=== PATIENT | male | born 1980 | race Caucasian/White ===

== ENCOUNTER 2020-08-16 13:54 | Emergency (ER) | payer OTHER, SELFPAY ==
[2020-08-16 14:23] VITALS: BP 132/92; PULSE 78; RESP 16; TEMP 37.1; O2SAT 97; BMI 23.6
--- NOTE | 2020-08-16 16:03 | ED_ITS ---
HPI - Eye Problem General Chief complaint: Eye Problems Stated complaint: eye issue Time Seen by Provider: 08/16/20 15:42 Source: patient Mode of arrival: ambulatory Limitations: no limitations History of Present Illness HPI Narrative: 40 y/o male presenting with painful and swollen cyst on the bottom eye lid of his left eye for the last 5 days. He states it has been fluctuating in size but today was bigger and more painful so he came to the ER. He denies any foreign body or trauma. He does not wear contacts or glasses. He states it is making it hard to see out of the left eye because it is making his eye water. He noticed a small white pustule on the inside of his eyelid today. He feels like he cannot go to work and perform his work with his eye bothering him like this. chief complaint: eye pain Onset (ago): hour(s) (5) Onset description: gradual Duration: constant Location: left eye Eye Symptoms: pain Place: home Mechanism: none Severity: moderate If Pain, Quality: aching Associated symptoms: none Treatments Prior to Arrival: none Related Data Patient tetanus UTD: Yes Previous Rx's Medication Instructions Recorded erythromycin 0.5 inch OPHTHALMIC (EYE) BID #1 g 08/16/20 Allergies Allergy/AdvReac Type Severity Reaction Status Date / Time No Known Allergies Allergy Verified 08/16/20 14:26 [No Known Allergies*] Review of Systems Review of Systems: Constitutional: No Fever, No Chills ENT/Mouth: No sore throat, No Rhinorrhea Eyes: + Eye Pain, + Swelling, No Redness Cardiovascular: No Chest Pain, No SOB Respiratory: No Cough, No Sputum Gastrointestinal: No Nausea, No Vomiting Skin: No Skin Lesions, No rash Neuro: No Dizziness, No Headache Heme/Lymph: No Bruising, No Lymphadenopathy PMFSH Past Medical History Attestation statement: The following information was validated with the patient. Medical History (Updated 08/16/20 @ 16:04 by AARON Lazar) No known health problems Social History Social History Advance Directives: No Advance Directives Information Provided: Yes Physical Exam Vital Signs: Vital Signs: Last Vital Signs Temp 98.8 F 08/16/20 14:23 Pulse 78 08/16/20 14:23 Resp 16 08/16/20 14:23 BP 132/92 H 08/16/20 14:23 Pulse Ox 97 08/16/20 14:23 Body Mass Index 23.6 Const: General: cooperative, healthy appearing and comfortable Orientation/consciousness: patient oriented x3 HENMT: Head: Yes normal to inspection, Yes normocephalic and Yes atraumatic Ears: hearing grossly normal bilaterally General nose exam: Normal external nose present Face and sinus: Yes normal facial exam Mouth: Normal oral and palatal mucosa present and lip normal Teeth and gingiva: dentition normal Throat: Yes posterior oropharynx normal Eyes: Eyelids: Yes eyelid abnormality (lower lid on left eye with large internal pustule with tender area ) Sclerae: sclerae normal Corneas: corneas normal Pupils: Equal, round and reactive pupils present EOM: EOMs intact bilaterally Eyes/upper lids images: 1. large internal horedolum Neck: Neck: Yes normal visual inspection and Yes no lymphadenopathy Chest: Chest palpation & inspection: normal inspection of the chest Resp: Effort & Inspection: normal respiratory effort and able to speak in complete sentences Skin: General skin exam: no rashes or lesions noted Neuro: General: patient oriented x3 and gait normal Cranial nerves: Yes Equal, round and reactive pupils present Extrem: General: Yes normal to inspection Psych: Appearance: grossly normal and well kempt Mental Status: mental status grossly normal Course Course Course Narrative: 40 y/o male presenting with 5 days of left lower eyelid pain and swelling. Exam is consistent with internal hordeolum. Tolerated I&D with si gnificant improvement in discomfort and swelling. Will prescribe abx ointment. Discussed symptomatic management with warm compresses and warning signs to prompt re-evaluation. Stable for discharge home. Procedures Abscess I/D Site: face (left lower eye lid) Side (if applicable): left Technique: other (18 G needle de-ena) Sent for culture/gram staining?: No Irrigation: Yes Packing used?: none Critical Care Time Critical Care Time Critical Care Time: No Discharge Plan Discharge Clinical Impression: Hordeolum Qualifiers: Hordeolum type: internum Laterality: left Eyelid: lower Qualified Code(s): H00.025 - Hordeolum internum left lower eyelid Patient Disposition: Home, Self-Care Instructions: Josue (ED) Additional Instructions: Use warm compresses to your left eye several times per day. Use the prescribed antibiotic eye ointment two times per day until resolved. If you have worsening symptoms come back to the ER for further evaluation. Prescriptions: New erythromycin 5 mg/gram (0.5 %) ointment 0.5 inch ophthalmic (eye) BID Qty: 1 RF: 0 Stand Alone Forms: Work/School Release Interventions: ED Discharge Assessment Last Done: 08/16/20 16:10 Discharge Date/Time: 08/16/20 16:11
== END 2020-08-16 16:11 | disposition home or self-care (01) ==
PROVIDERS: Emergency Provider Emergency Medicine
DX: H00.025 Hordeolum internum left lower eyelid (principal); H57.12 Ocular pain, left eye
CPT/HCPCS: 67700; 99283; 99284

== ENCOUNTER 2021-08-15 16:42 | Emergency (ER) | payer OTHER, SELFPAY ==
--- NOTE | ~2021-08-15 | XR_ITS ---
EXAMINATION: XR HAND, RIGHT CLINICAL INFORMATION: Crush injury. COMPARISON: Radiograph of the right wrist dated from 07/26/2017. TECHNIQUE: PA, lateral, and oblique views of the right hand. FINDINGS: There is a predominantly horizontally oriented fracture in the proximal to mid third of the fourth metacarpal bone. There is no significant displacement or angulation. No other fractures. Posttraumatic soft tissue swelling is noted without radiopaque foreign bodies. XR/XR hand RT min 3V IMPRESSION: Fourth metacarpal fracture.
[2021-08-15 16:53] VITALS: BP 114/71; PULSE 72; RESP 16; TEMP 36.3; O2SAT 97; BMI 21.4
--- NOTE | 2021-08-15 17:39 | ED.EXTPRO ---
HPI - Extremity Problem General Chief complaint: Extremity Injury, Upper Stated complaint: Hand injury Time Seen by Provider: 08/15/21 17:39 Source: patient Mode of arrival: ambulatory History of Present Illness HPI Narrative: 41-year-old male with no significant past medical history presenting to the ED complaining of right hand pain and swelling s/p small heavy safe falling off a shelf about 7ft onto hand last night. States pulled an article of clothing from dresser which was under safe which caused it to fall. Denies head injury or LOC. Reports associated paresthesias to 5th digit. Denies injury to other area, fever MD Complaint: extremity pain and extremity swelling Onset (ago): hour(s) Pain Consistency: constant Related Data Previous Rx's Medication Instructions Recorded erythromycin 5 mg/gram (0.5 %) eye 0.5 inch OPHTHALMIC (EYE) BID #1 g 08/16/20 ointment Allergies Allergy/AdvReac Type Severity Reaction Status Date / Time No Known Allergies Allergy Verified 08/16/20 14:26 [No Known Allergies*] Review of Systems Review of Systems: Constitutional: No Fever, No Chills ENT/Mouth: No Ear Pain, No Sinus Pain, No sore throat,No Swallowing Difficulty Cardiovascular: No Chest Pain, No SOB Respiratory: No Cough, No Sputum, No Wheezing Gastrointestinal: No Nausea, No Vomiting, No Diarrhea, No Constipation, No Abdominal pain Genitourinary:, No Dysuria, No Urgency, No Flank Pain Musculoskeletal: + joint pain, No Myalgias, + Joint Swelling Skin: No Skin Lesions, No rash Neuro: No Weakness, No Numbness, + Paresthesias Yes all other systems are reviewed and are negative [facility] Past Medical History Attestation statement: The following information was validated with the patient. Medical History No known health problems Social History Social History Advance Directives: No Advance Directives Information Provided: No Physical Exam Vital Signs: Vital Signs: Last Vital Signs Temp 97.3 F 08/15/21 16:53 Pulse 72 08/15/21 16:53 Resp 16 08/15/21 16:53 BP 114/71 08/15/21 16:53 Pulse Ox 97 08/15/21 16:53 BMI result Body Mass Index 21.4 Const: General: cooperative, healthy appearing, no acute distress, alert, awake and Physically active Orientation/consciousness: patient oriented x3 Limitations: no limitations HEENT: Head: Yes normal to inspection and Yes atraumatic Ears: hearing grossly normal bilaterally General nose exam: Normal external nose present Face and sinus: Yes normal facial exam Eyes: General: appearance normal, both eyes and all related structures EOM: EOMs intact bilaterally Neck: Neck: Yes normal visual inspection and Yes no meningeal signs Resp: Effort & Inspection: normal respiratory effort and no respiratory distress Cardio: Rate: regular rate Peripheral pulses: radial pulses present Skin: Rashes: no rashes Wounds: no wounds Neuro: General: patient oriented x3, tone normal and no meningeal signs Gait exam (Neuro): Normal gait present Extrem: Other: Right hand with noted swelling > 4th & 5th digits with diffuse tenderness volar aspect. Decreased ROM in to 4th and 5th digits from pain and swelling. Decreased thumb to pinky opposition secondary to pain. Sensation intact to light touch. Neurovascularly intact. No erythema or evidence of cellulitis Course Course Course Narrative: XR hand RT min 3V IMPRESSION: Fourth metacarpal fracture. >> patient placed in ulnar gutter splint, is to follow-up with orthopedics. Worrisome signs and symptoms and strict return precautions discussed MDM - Extremity (Nontraumatic) MDM Narrative Medical decision making narrative: 41-year-old male with no significant past medical history presenting to the ED complaining of right hand pain and swelling s/p small heavy safe falling off a shelf about 7ft onto hand last night. On exam vital signs stable, NAD/nontoxic, physical exam as above. Concern for fracture Plan: X-ray Medical Records Attestation: I reviewed the patient's medical records. Lab Data Attestation: I reviewed the patient's lab results. Procedures Orthopedic Splinting/Casting Injury #1: Side: right Upper Extremity Injury Location: finger Upper Extremity Immobilizer: ulnar gutter Discharge Plan Discharge Clinical Impression: Fracture of fourth metacarpal bone Qualifiers: Encounter type: initial encounter Fracture type: closed Fracture alignment: nondisplaced Laterality: right Patient Disposition: Home, Self-Care Instructions: Finger Fracture (ED) Additional Instructions: You have a fracture of your ring finger. Wear splint at all times, keep dry and clean. Ice and elevate. You need to follow-up with the contact center specialist. Take Tylenol & Motrin for pain and swelling. Call the specialist on Tuesday to make an appointment for 1 week If pain becomes unbearable, fingers become numb please remove Aj wrap and return to the ED Prescriptions: No Action erythromycin 5 mg/gram (0.5 %) ointment 0.5 inch ophthalmic (eye) BID Qty: 1 0RF Referrals: Ale Perkins MD [Physician] - 1 week Stand Alone Forms: Work/School Release
--- NOTE | 2021-08-15 18:37 | PC.NURSE ---
PT ULNER GUTTER PLACED TO RIGHT HAND +CMS CHECKED BY AARON ZAVALA.
== END 2021-08-15 18:40 | disposition home or self-care (01) ==
PROVIDERS: Emergency Provider Emergency Medicine Emergency Medical Services
DX: S62.304A Unspecified fracture of fourth metacarpal bone, right hand, initial encounter for closed fracture (principal); M79.641 Pain in right hand; Y29.XXXA Contact with blunt object, undetermined intent, initial encounter; Y93.9 Activity, unspecified; Y92.009 Unspecified place in unspecified non-institutional (private) residence as the place of occurrence of the external cause; Y99.9 Unspecified external cause status
CPT/HCPCS: 29130; 73130; 99283

== ENCOUNTER 2021-09-01 08:50 | Outpatient (REF) | payer OTHER, SELFPAY ==
--- NOTE | ~2021-09-01 | XR_ITS ---
EXAMINATION: XR HAND, RIGHT CLINICAL INFORMATION: Pain right hand. COMPARISON: Right hand 08/15/2021. TECHNIQUE: PA, lateral, and oblique views of the right hand. FINDINGS: There is a transverse oblique fracture mid 4th metatarsal with mild volar angulation. No additional fractures seen. There is no dislocation. The soft tissues are normal. XR/XR hand RT min 3V IMPRESSION: Oblique transverse fracture mid 4th metatarsal with volar angulation. Findings unchanged to previous study.
== END 2021-09-01 08:51 | disposition home or self-care (01) ==
LOC: HO.HOSX 08:50
PROVIDERS: Visit Provider Orthopaedic Surgery
DX: S62.324A Displaced fracture of shaft of fourth metacarpal bone, right hand, initial encounter for closed fracture (principal)
CPT/HCPCS: 73130; 99202

== ENCOUNTER → 2021-09-03 08:06 | Day surgery (SDC) | payer OTHER, SELFPAY ==
--- NOTE | 2021-09-02 11:56 | P.CONAN_ITS ---
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
[2021-09-03 08:13] VITALS: BMI 20.7
--- NOTE | 2021-09-03 08:18 | PC.NURSE ---
patient states he did cocaine yesterday. md ascencio by the bedside speaking to patient and md medina. patient aware of plan of care.
== END ==
PROVIDERS: Visit Provider Orthopaedic Surgery
DX: S62.304A Unspecified fracture of fourth metacarpal bone, right hand, initial encounter for closed fracture (principal); Z53.09 Procedure and treatment not carried out because of other contraindication

== ENCOUNTER → 2021-09-04 08:45 | Outpatient (BNVA) | payer OTHER, SELFPAY | PROVIDERS: Visit Provider Physician Assistant | DX: S62.324D Displaced fracture of shaft of fourth metacarpal bone, right hand, subsequent encounter for fracture with routine healing (principal) | CPT/HCPCS: 29085; 99212 ==

== ENCOUNTER 2021-09-16 09:33 | Outpatient (REF) | payer OTHER, SELFPAY ==
--- NOTE | ~2021-09-16 | XR_ITS ---
EXAMINATION: XR HAND, RIGHT CLINICAL INFORMATION: Pain in right hand. COMPARISON: None TECHNIQUE: PA, lateral, and oblique views of the right hand. FINDINGS: The transverse fracture of the diaphysis of the 4th metacarpal redemonstrated with increased callus formation. There is persistent apex dorsal angulation of the fracture, question increased slightly. Evaluation is obscured by adjacent bones on the lateral view. No additional abnormalities. XR/XR hand RT min 3V IMPRESSION: Healing 4th metacarpal fracture. Question slight increase in apex dorsal angulation. This could be artifactual related to slight differences in projection.
== END 2021-09-16 09:34 | disposition home or self-care (01) ==
LOC: HO.HOSX 09:33
PROVIDERS: Visit Provider Orthopaedic Surgery
DX: S62.324D Displaced fracture of shaft of fourth metacarpal bone, right hand, subsequent encounter for fracture with routine healing (principal)
CPT/HCPCS: 73130; 99212

== ENCOUNTER 2021-10-07 07:52 | Outpatient (REF) | payer OTHER, SELFPAY ==
--- NOTE | ~2021-10-07 | XR_ITS ---
EXAMINATION: XR HAND, RIGHT CLINICAL INFORMATION: Pain right hand. COMPARISON: Right hand 09/16/2021. TECHNIQUE: PA, lateral, and oblique views of the right hand. FINDINGS: There is no acute fracture, dislocation or subluxation seen involving the fourth digit. There is a healing fracture with volar angulation mid 4th metacarpal unchanged to 09/16/2021. No soft tissue abnormality seen. XR/XR hand RT min 3V IMPRESSION: Healing 4th mid metacarpal fracture with callus formation and volar angulation unchanged to previous study 09/16/2021. No other bony abnormality seen.
== END 2021-10-07 07:53 | disposition home or self-care (01) ==
LOC: HO.HOSX 07:52
PROVIDERS: Visit Provider Physician Assistant
DX: M79.641 Pain in right hand (principal)
CPT/HCPCS: 73130

== ENCOUNTER 2021-10-30 09:26 | Outpatient (REF) | payer OTHER, SELFPAY | END 2021-10-30 09:27 | disposition home or self-care (01) | LOC: HO.HOSX 09:26 | PROVIDERS: Visit Provider Orthopaedic Surgery | DX: Z13.89 Encounter for screening for other disorder (principal) ==

== ENCOUNTER 2021-12-10 01:12 | Emergency (ER) | payer OTHER, SELFPAY ==
--- NOTE | ~2021-12-10 | XR_ITS ---
Indication: Rule out foreign body EXAMINATION: Two-view chest, cervical spine 3 views and 2 view skull image. 2 views the chest are obtained and there are no films to compare. The cardiac silhouette is within normal limits. There is no evidence for an infiltrate. There is no effusion. Lung godoy are grossly clear. The hilar structures do not appear pathologically enlarged. There is no radiopaque foreign body seen. 3 views of the cervical spine demonstrate normal cervical lordosis. No listhesis or compression injury. No radiopaque foreign body is seen. 2 views of the skull AP and lateral do not demonstrate evidence for radiopaque foreign body. XR/XR chest 2V IMPRESSION: Multiple films. No acute finding. No radiopaque foreign body is seen.
--- NOTE | ~2021-12-10 | XR_ITS ---
Indication: Rule out foreign body EXAMINATION: Two-view chest, cervical spine 3 views and 2 view skull image. 2 views the chest are obtained and there are no films to compare. The cardiac silhouette is within normal limits. There is no evidence for an infiltrate. There is no effusion. Lung godoy are grossly clear. The hilar structures do not appear pathologically enlarged. There is no radiopaque foreign body seen. 3 views of the cervical spine demonstrate normal cervical lordosis. No listhesis or compression injury. No radiopaque foreign body is seen. 2 views of the skull AP and lateral do not demonstrate evidence for radiopaque foreign body. XR/XR skull <4V IMPRESSION: Multiple films. No acute finding. No radiopaque foreign body is seen.
--- NOTE | ~2021-12-10 | XR_ITS ---
Indication: Rule out foreign body EXAMINATION: Two-view chest, cervical spine 3 views and 2 view skull image. 2 views the chest are obtained and there are no films to compare. The cardiac silhouette is within normal limits. There is no evidence for an infiltrate. There is no effusion. Lung godoy are grossly clear. The hilar structures do not appear pathologically enlarged. There is no radiopaque foreign body seen. 3 views of the cervical spine demonstrate normal cervical lordosis. No listhesis or compression injury. No radiopaque foreign body is seen. 2 views of the skull AP and lateral do not demonstrate evidence for radiopaque foreign body. XR/XR cervical spine 2V IMPRESSION: Multiple films. No acute finding. No radiopaque foreign body is seen.
[2021-12-10 01:32] VITALS: BP 120/75; PULSE 71; RESP 17; TEMP 36.9; O2SAT 98; BMI 22.6
[2021-12-10 06:00] VITALS: BP 104/69; PULSE 56; RESP 17; O2SAT 100
--- NOTE | 2021-12-10 07:10 | ED.BACK ---
HPI - Back Pain/Injury General Chief Complaint: Back Pain/Injury Stated Complaint: back pain, Time Seen by Provider: 12/10/21 06:17 Source: patient Mode of arrival: ambulatory History of Present Illness HPI Narrative: This is a 41-year-old female with history IVDA and presents with very specific back pain that started earlier today and has continued to ?get worse?. Patient denies any fevers, chills, groin numbness, difficulty with bowel or bladder and denies any weakness in bilateral lower extremities. Otherwise, patient denies shortness of breath, chest pain/palpitations. Related Data Allergies Allergy/AdvReac Type Severity Reaction Status Date / Time No Known Allergies Allergy Verified 12/10/21 01:34 [No Known Allergies*] Review of Systems Review of Systems: Pertinent positives and negatives as stated in HPI 10 point review of systems is otherwise negative. 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 GENERAL: Cachectic, in no acute distress. HEAD: Normocephalic/atraumatic EYES: PERRLA, EOMI intact without pain, no nystagmus/pallor/icterus noted EARS: Ext canals without abnormality, TMs non-bulging and non-erythematous NOSE: Nares patent bilateral OROPHARYNX: no oral lesions noted, posterior pharynx clear dry mucosa NECK: Supple, no adenopathy LUNGS: Normal breath sounds. No adventitious sounds or accessory muscle use. SpO2<100> CARDIOVASCULAR: Regular rate and rhythm without noted murmurs ABDOMEN: Soft, non-tender, non-distended with bowel sounds. BACK: Specific vertebral pain on palpation at approximately L1-L2 MUSCULOSKELETAL: No tenderness, deformities, or effusions noted on gross inspection. EXTREMITIES: No cyanosis, clubbing or edema. SKIN: Inspection of the skin reveals no rashes NEUROLOGIC: Alert and oriented x 4. Strength and sensation to light touch were grossly intact x 4. Course Course Course Narrative: 41-year-old male with history and clinical presentation concerning for possible spinal abscess/diskitis, less likely felt to be renal colic/fracture/pyelonephritis. Signed out to Dr. Burgos. Discharge Plan Discharge Clinical Impression: Lumbar pain, Intravenous drug abuse Patient Disposition: Still a Patient
[2021-12-10 08:23] LABS: MANUAL DIFF FLAG NO
[2021-12-10 08:24] LABS: Basophils Absolute Auto 0.1 X10*3/uL (0.0-0.2); Basophils Percent Auto 0.9 % (0-2); Eosinophils Absolute Auto 0.2 X10*3/uL (0.0-0.4); Eosinophils Percent Auto 3.2 % (0-4); Hematocrit 45.7 % (42.0-52.0); Hemoglobin 15.2 g/dl (14.0-18.0); Imm Gran Abs Auto 0.02 X10*3/uL (0.00-0.03); Imm Gran Pct Auto 0.3 % (0.0-0.4); Lymphocytes Absolute Auto 2.7 X10*3/uL (1.2-4.9); Lymphocytes Percent Auto 38.7 % (20-40); Mean Corpuscular HGB Conc 33.3 g/dl (31.0-36.0); Mean Corpuscular Hemoglobin 28.6 pg (27.0-33.0); Mean Corpuscular Volume 85.9 fL (80.0-98.0); Mean Platelet Volume 9.1 fL (9.4-12.4); Monocytes Absolute Auto 0.7 X10*3/uL (0.1-1.2); Monocytes Percent Auto 10.3 % (2-11); Neutrophils Absolute Auto 3.2 x10*3/uL (2.0-8.3); Neutrophils Percent Auto 46.6 % (45-73); Platelet Count 347 X10*3/uL (160-400); Red Blood Count 5.32 X10*6/uL (4.60-5.80); Red Cell Distribution Width 12.4 % (11.0-16.0); White Blood Count 6.9 X10*3/uL (4.8-10.8)
[2021-12-10] MEDS: Ketorolac Tromethamine 30 MG/ML VIAL 15 MG IVPUSH (08:25)
[2021-12-10 08:32] LABS: INTERNATIONAL NORM RATIO 0.9 (0.9-1.1); Prothrombin Time 10.6 SEC (10.0-13.1)
[2021-12-10 08:44] LABS: Alanine Aminotransferase 17 U/L (0-40); Albumin Level 4.5 g/dL (3.5-5.0); Alkaline Phosphatase 90 U/L (39-117); Anion Gap 17 (12-20); Aspartate Amino Transferase 27 U/L (5-37); Bilirubin Total 0.4 mg/dL (0.0-1.0); Blood Urea Nitrogen 11 mg/dL (9-16); C Reactive Protein 0.08 mg/dL (< or = 0.50); Calcium 9.6 mg/dL (8.4-10.2); Carbon Dioxide 28 mmol/L (22-29); Chloride 101 mmol/L (96-108); Estimated Glomerular Filt Rate > 60; Glucose Random 85 mg/dL (60-115); Potassium 4.2 mmol/L (3.3-5.1); Sodium 142 mmol/L (135-145); Total Protein 7.5 g/dL (6.5-8.0)
[2021-12-10 09:02] LABS: Erythrocyte Sedimentation Rate 2 MM/HR (0-15)
== END 2021-12-10 10:13 | disposition left against medical advice (07) ==
PROVIDERS: Student in an Organized Health Care Education/Training Program; Emergency Provider Emergency Medicine Emergency Medical Services
DX: M54.50 Low back pain, unspecified (principal); F19.90 Other psychoactive substance use, unspecified, uncomplicated; F17.210 Nicotine dependence, cigarettes, uncomplicated
CPT/HCPCS: 36415; 70250; 71046; 72040; 80053; 83605; 85025; 85610; 85652; 86140; 87040; 96374; 99284; J1885

== ENCOUNTER 2021-12-23 07:21 | Outpatient (REF) | payer OTHER, SELFPAY | END 2021-12-23 07:22 | disposition home or self-care (01) | LOC: HO.HOSX 07:21 | PROVIDERS: Visit Provider Physician Assistant | DX: Z13.89 Encounter for screening for other disorder (principal) ==

== ENCOUNTER 2022-03-21 11:37 | Emergency (ER) | payer OTHER, SELFPAY | END 2022-03-21 16:39 | disposition left against medical advice (07) | PROVIDERS: Emergency Provider Emergency Medicine | DX: M54.50 Low back pain, unspecified (principal) ==

== ENCOUNTER 2022-05-12 20:40 | Emergency (ER) | payer OTHER, SELFPAY ==
--- NOTE | ~2022-05-12 | XR_ITS ---
EXAMINATION: XR CHEST CLINICAL INFORMATION: Chest pain COMPARISON: Chest x-ray 12/10/2021 TECHNIQUE: Frontal portable view of the chest was obtained. 9:42 PM FINDINGS: No significant abnormality is noted involving the heart, lungs, mediastinum, bony thorax or soft tissues. XR/XR chest 1V IMPRESSION: Unremarkable examination.
[2022-05-12 20:47] VITALS: BP 145/97; PULSE 102; RESP 18; TEMP 36.5; O2SAT 98; BMI 23.6
--- NOTE | 2022-05-12 20:50 | ECG_ITS ---
Test Reason : BACK PAIN Blood Pressure : / mmHG Vent. Rate : 087 BPM Atrial Rate : 087 BPM P-R Int : 116 ms QRS Dur : 094 ms QT Int : 400 ms P-R-T Axes : 049 049 049 degrees QTc Int : 481 ms Normal sinus rhythm Prolonged QT Abnormal ECG No previous ECGs available Referred By: Generic ED Physician Electronically Signed By:ASHLEIGH KNIGHT MD
--- NOTE | 2022-05-12 21:31 | ED.GENADULT ---
HPI - General Adult General Chief complaint: Back Pain/Injury Stated complaint: Chest pain Time Seen by Provider: 05/12/22 21:03 Source: patient Mode of arrival: ambulatory Limitations: no limitations History of Present Illness HPI narrative: Patient comes to the emergency room complaining of intermittent chest pain described as a bubble expanding in the chest for the last 2 months. Patient admits to use IV cocaine. Patient is here chills, no rib pain, no trauma. Related Data Allergies Allergy/AdvReac Type Severity Reaction Status Date / Time No Known Allergies Allergy Verified 12/10/21 01:34 [No Known Allergies*] Review of Systems Review of Systems: Constitutional : No Weight loss, No Fever, No Chills, No Night Sweats, No Fatigue, No Malaise ENT/Mouth : No Hearing loss, No Ear Pain, No Nasal Congestion, No Sinus Pain, No Hoarseness, No sore throat, No Rhinorrhea, No Swallowing Difficulty Eyes: No Eye Pain, No Swelling, No Redness, No Foreign Body, No Discharge, No Vision Changes Cardiovascular : Complaining of chest discomfort described as a bubble expanding in the chest, No Chest Pain, No SOB, No Dyspnea on Exertion, No Orthopnea, No Edema, No Palpitations Respiratory : No Cough, No Sputum, No Wheezing, No Smoke Exposure, No Dyspnea Gastrointestinal : No Nausea, No Vomiting, No Diarrhea, No Constipation, No abdominal Pain, No Hematochezia, No Melena Genitourinary : no irregular bleeding, No Dysuria, No Urinary Frequency, No Hematuria, No Urinary Incontinence, No Urgency, No Flank Pain, No Urinary Flow Changes, No Hesitancy Musculoskeletal : No joint pain, No Myalgias, No Joint Swelling Skin : No Skin Lesions, No rash Neuro : No Weakness, No Numbness, No Paresthesias, No Loss of Consciousness, No Dizziness, No Headache Psych : No Anxiety/Panic, No Depression, No SI/HI/AH/VH, No Social Issues, Heme/Lymph: No Bruising, No Bleeding,No Lymphadenopathy Endocrine : No Polyuria, No Polydipsia, No Temperature Intolerance [facility] Past Medical History Medical History (Updated 05/12/22 @ 22:50 by Tracie Petit MD) IV drug user No known health problems Social History Social History Alcohol intake: current Alcohol intake frequency: holidays/special occasions only Alcohol type: hard liquor Patient Tobacco Use Status: Current everyday Tobacco user Tobacco use type: Cigarette Cigarettes Per Day: 6 Smoked in Last 30 Days: No Substance Use Type: Crack/Cocaine and Heroin Substance Use Frequency: Daily Substance Use Frequency Other:: 2-3 times/day Last Used Substance: Hours (ago) Any prior treatment program specific to substance use: Yes (methadone clinic) Advance Directives: No Advance Directives Information Provided: No Current occupational status: employed 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 Oriented X3. No acute distress. Well appearing Eyes: Pupils equal, round and reactive to light. ENT: Pharynx normal. Neck: Normal inspection. Neck supple. No lymph nodes noted. No crepitus CVS: Normal heart rate and rhythm. Pulses normal. Normal S1 and S2 Respiratory: No respiratory distress. Breath sounds normal. No Wheezing. No rales Abdomen: Soft and nontender. No rigidity. No distention. Skin: Skin warm and dry. Normal skin color. Normal skin turgor. Extremities: No lower extremity edema. No Lacerations. No Rash Neuro: Oriented X 3. No motor deficit. No sensory deficit. Moving all extremities. No slurred speech. CN 2 through 12 grossly intact Psych: calm, cooperative, normal affect Course Course Course Narrative: -all of patient's labs and imaging pending. Patient has vital stables -troponin and EKG, chest x-ray within normal limits. Patient's source of chest fullness sensation for the last 2 months unlikely to be from cardiac etiology. Medical Decision Making Differential Diagnosis Differential Diagnoses: The differential diagnosis associated with the presentation includes (ACS, cocaine induced chest pain, pneumonia) Lab Data MDM Lab Attestation statement: I reviewed the patient's lab results. 05/12/22 21:50 05/12/22 21:51 Labs: Lab Results 05/12/22 05/12/22 05/12/22 Range/Units 21:50 21:50 21:51 WBC 4.9 (4.8-10.8) X10*3/uL RBC 4.68 (4.60-5.80) X10*6/uL Hgb 13.6 L (14.0-18.0) g/dl Hct 39.1 L (42.0-52.0) % MCV 83.5 (80.0-98.0) fL MCH 29.1 (27.0-33.0) pg MCHC 34.8 (31.0-36.0) g/dl RDW 12.0 (11.0-16.0) % Plt Count 291 (160-400) X10*3/uL MPV 9.0 L (9.4-12.4) fL Immature Gran % (Auto) 0.0 (0.0-0.4) % Neut % (Auto) 45.5 (45-73) % Lymph % (Auto) 37.1 (20-40) % Treasure % (Auto) 14.3 H (2-11) % Eos % (Auto) 2.5 (0-4) % Baso % (Auto) 0.6 (0-2) % Lymph # (Auto) 1.8 (1.2-4.9) X10*3/uL Treasure # (Auto) 0.7 (0.1-1.2) X10*3/uL Eos # (Auto) 0.1 (0.0-0.4) X10*3/uL Baso # (Auto) 0.0 (0.0-0.2) X10*3/uL Abs Immat Gran (auto) 0.00 (0.00-0.03) X10*3/uL Absolute Neuts (auto) 2.2 (2.0-8.3) x10*3/uL Absolute Nucleated RBC 0.000 (0.0-0.012) X10*3/uL Nucleated RBC % (auto) 0.0 (0.0-0.2) /100WBC Sodium 142 (135-145) mmol/L Potassium 4.0 (3.3-5.1) mmol/L Chloride 106 (96-108) mmol/L Carbon Dioxide 30 H (22-29) mmol/L Anion Gap 10 L (12-20) BUN 19 H (9-16) mg/dL Creatinine 1.07 (0.5-1.4) mg/dL Estim Creat Clear Calc 90.8 Estimated GFR > 60 Random Glucose 120 H (60-115) mg/dL Calcium 9.2 (8.4-10.2) mg/dL Total Bilirubin 0.4 (0.0-1.0) mg/dL AST 31 (5-37) U/L ALT 28 (0-40) U/L Alkaline Phosphatase 82 (39-117) U/L Troponin I High Sens < 3.5 (<3.5-35.0) ng/L Total Protein 6.7 (6.5-8.0) g/dL Albumin 4.1 (3.5-5.0) g/dL Independent Interpretation I performed an independent interpretation of an: EKG (My EKG interpretation: Normal sinus rhythm, heart rate 87, no ST segment depression or elevation, no T-wave inversion, right bundle branch block, QTC 481) and Plain X-Ray (My chest x-ray interpretation: No infiltrates) Radiology Impression Discussion of test interpretation with radiology: I have reviewed the radiologist's reading. Radiologist Impression: FINDINGS: No significant abnormality is noted involving the heart, lungs, mediastinum, bony thorax or soft tissues. XR/XR chest 1V IMPRESSION: Unremarkable examination. Scores Heart Score History: -0- slightly suspicious ECG: -0- normal Age: -0- < or = 45 Risk factory: -0- no risk factors known Troponin: -0- < or = normal limit Score: 0 Risk: 1.7% Discharge Plan Discharge Clinical Impression: Atypical chest pain Patient Disposition: Home, Self-Care Instructions: Chest Pain (ED) Additional Instructions: Please follow-up with your primary care physician tomorrow. If you have any worsening or new symptoms, please return to the emergency room or call 911
[2022-05-12 21:57] LABS: Basophils Percent Auto 0.6 % (0-2); Eosinophils Absolute Auto 0.1 X10*3/uL (0.0-0.4); Eosinophils Percent Auto 2.5 % (0-4); Hematocrit 39.1 % (42.0-52.0); Hemoglobin 13.6 g/dl (14.0-18.0); Lymphocytes Absolute Auto 1.8 X10*3/uL (1.2-4.9); Lymphocytes Percent Auto 37.1 % (20-40); MANUAL DIFF FLAG NO; Mean Corpuscular HGB Conc 34.8 g/dl (31.0-36.0); Mean Corpuscular Hemoglobin 29.1 pg (27.0-33.0); Mean Corpuscular Volume 83.5 fL (80.0-98.0); Monocytes Absolute Auto 0.7 X10*3/uL (0.1-1.2); Monocytes Percent Auto 14.3 % (2-11); Neutrophils Absolute Auto 2.2 x10*3/uL (2.0-8.3); Neutrophils Percent Auto 45.5 % (45-73); Platelet Count 291 X10*3/uL (160-400); Red Blood Count 4.68 X10*6/uL (4.60-5.80); White Blood Count 4.9 X10*3/uL (4.8-10.8)
[2022-05-12 22:13] LABS: Alanine Aminotransferase 28 U/L (0-40); Albumin Level 4.1 g/dL (3.5-5.0); Alkaline Phosphatase 82 U/L (39-117); Anion Gap 10 (12-20); Aspartate Amino Transferase 31 U/L (5-37); Bilirubin Total 0.4 mg/dL (0.0-1.0); Blood Urea Nitrogen 19 mg/dL (9-16); Calcium 9.2 mg/dL (8.4-10.2); Carbon Dioxide 30 mmol/L (22-29); Chloride 106 mmol/L (96-108); Creatinine Clr Calc Pharmacy 90.8; Estimated Glomerular Filt Rate > 60; Glucose Random 120 mg/dL (60-115); Sodium 142 mmol/L (135-145); Total Protein 6.7 g/dL (6.5-8.0)
[2022-05-12 22:20] LABS: Troponin-I High Sensitivity < 3.5 ng/L (<3.5-35.0)
[2022-05-12 22:57] VITALS: BP 105/67; PULSE 60; RESP 18; TEMP 36.8; O2SAT 98
--- NOTE | 2022-05-12 23:00 | PC.NURSE ---
Pt TORRES x4, ambulatory c/o 5/10 lower back pain when discharged. Pt verbalizes understanding of discharge instructions. Rn advises to f/u with PCP and rtn to ED for worsening of sx. Pt agrees to plan.
== END 2022-05-12 23:02 | disposition home or self-care (01) ==
PROVIDERS: Emergency Provider Emergency Medicine
DX: R07.89 Other chest pain (principal); F17.210 Nicotine dependence, cigarettes, uncomplicated; F11.20 Opioid dependence, uncomplicated
CPT/HCPCS: 36415; 71045; 80053; 84484; 85025; 93005; 99283; 99284

== ENCOUNTER 2022-09-20 12:28 | Emergency (ER) | payer OTHER, SELFPAY ==
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
--- NOTE | ~2022-09-20 | CT_ITS ---
Examination: CT brain and CT cervical spine without contrast. Clinical indications: Head strike. COMPARISON: None. TECHNIQUE: 5 mm thin axial and reformatted 2 mm thin sagittal and coronal images of brain were obtained. Subsequently axial 3 mm thin and reformatted 2 mm thin sagittal and coronal images of cervical spine were obtained. DLP [id number]. This CT examination was performed using dose optimization technique as appropriate, variously including the following: Automated exposure control Adjustment of MA and/or KV according to patient size(this includes techniques or standardized protocols for targeted exams where dose is matched to indication/reason for exam; extremities or head. Use of iterative reconstruction techniques. FINDINGS: Brain: There is no acute intra-axial, extra-axial bleed, masses or midline shift. There is no acute infarction evolution. There is no edema. The riley to white matter difference is maintained normal. The lateral ventricles are symmetrical in size and configuration without enlargement. Bone windows reveal no calvarial abnormality. There is no scalp soft tissue abnormality. Bilateral paranasal sinuses and mastoid air cells are well-aerated. Cervical spine: There is normal cervical lordosis. The vertebral heights, alignment and disc heights are normal. There is no visible acute fracture, dislocation or subluxation seen. The craniovertebral junction and the C1-C2 alignment is normal. The prevertebral and paravertebral soft tissues are normal. The airways widely patent. Lung apices are clear. Thyroid lobes are symmetrical and normal. CT/CT cervical spine wo IV con IMPRESSION: 1. No acute intracranial process seen. 2. There is no acute fracture, dislocation or subluxation in cervical spine.
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
[2022-09-20 12:36] VITALS: BP 127/68; PULSE 72; O2SAT 98
[2022-09-20 12:39] VITALS: BP 132/84; PULSE 66; RESP 16; TEMP 37.1; O2SAT 97; BMI 26.7
== END 2022-09-20 14:04 | disposition home or self-care (01) ==
PROVIDERS: Emergency Provider Emergency Medicine
DX: S89.92XA Unspecified injury of left lower leg, initial encounter (principal); M54.50 Low back pain, unspecified; M25.562 Pain in left knee; R51.9 Headache, unspecified; V43.52XA Car driver injured in collision with other type car in traffic accident, initial encounter; Y93.9 Activity, unspecified; Y92.410 Unspecified street and highway as the place of occurrence of the external cause; Y99.9 Unspecified external cause status
CPT/HCPCS: 70450; 72100; 72125; 73560; 99284

== ENCOUNTER 2023-04-22 11:44 | Emergency (ER) | payer MEDICAID, SELFPAY ==
--- NOTE | ~2023-04-22 | XR_ITS ---
EXAMINATION: XR RIBS, RIGHT CLINICAL INFORMATION: Right-sided rib pain COMPARISON: Chest x-ray of May 12, 2022 TECHNIQUE: PA film of chest and 4 views of the right ribs FINDINGS: There is no evidence of acute parenchymal disease, pneumothorax, or pleural effusion. Heart normal size. No evidence of pulmonary edema. No acute displaced right rib fracture seen. No destructive bony lesion identified. XR/XR ribs RT min 3V w CXR1V IMPRESSION: No acute parenchymal disease within the chest. No significant right rib abnormality appreciated on this plain film study.
[2023-04-22 12:44] VITALS: BP 120/82; PULSE 80; RESP 16; TEMP 37.1; O2SAT 95; BMI 31.4
--- NOTE | 2023-04-22 12:44 | ED_ITS ---
HPI - General Adult General Chief complaint: General Medical Stated complaint: Pain Underneath R Arm and Side Time Seen by Provider: 04/22/23 16:04 Source: patient Mode of arrival: ambulatory Limitations: no limitations History of Present Illness HPI narrative: 42-year-old male history of IV drug use presents to ED for right-sided chest wall pain. Radiates to the back that is worse on movement for the past couple of days. Patient also states mild pleurisy. Patient denies any coughing up blood, leg swelling, calf pain, fever or chills. Patient states he has been sober for the past 3 months. Patient denies any abdominal pain, dysuria, hematuria, nausea, flank pain or vomiting. Patient denies any urinary / bowel incontinence. Related Data Previous Rx's Medication Instructions Recorded cyclobenzaprine 5 mg tablet 5 mg PO TID PRN muscle spasm 7 09/20/22 days #21 tabs naproxen 500 mg tablet 500 mg PO BID PRN pain 7 days #14 04/22/23 tabs Allergies Allergy/AdvReac Type Severity Reaction Status Date / Time No Known Allergies Allergy Verified 04/22/23 12:44 [No Known Allergies*] Review of Systems 2 Review of Systems: right sided chest wall pain Yes all other systems are reviewed and are negative PMFSH Past Medical History Medical History IV drug user No known health problems Social History Social History Alcohol intake: current Alcohol intake frequency: a few times a month Alcohol type: hard liquor Patient Tobacco Use Status: Current everyday Tobacco user Tobacco use type: Cigarette Cigarettes Per Day: 6 Substance Use Type: Crack/Cocaine and Heroin Advance Directives: No Advance Directives Information Provided: No Current occupational status: employed 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 Physical Exam ED Vital Signs: Vital Signs - 24 hr 04/22/23 12:44 04/22/23 16:46 04/22/23 18:20 Temperature 98.7 F 98.3 F Pulse Rate 80 80 Respiratory Rate 16 20 18 Blood Pressure 120/82 118/84 Pulse Oximetry 95 97 Oxygen Delivery Method Room Air Room Air BMI result Body Mass Index 31.4 Const Orientation/consciousness: oriented to person, oriented to place, oriented to time and patient oriented x3 HENMT Head: Yes normal to inspection, Yes No palpable skull fracture present, Yes normocephalic and Yes atraumatic Ears: hearing grossly normal bilaterally, external ears normal, TM's normal bilaterally, TM normal on the right, TM normal on the left, EAC's normal, mastoids normal and no periauricular adenopathy Throat: Yes posterior oropharynx normal, Yes tonsils normal and Yes uvula midline Eyes General: appearance normal, both eyes and all related structures Neck Neck: Yes normal visual inspection, Yes full ROM, Yes no lymphadenopathy, Yes no meningeal signs, Yes trachea midline, Yes supple, No anterior neck swelling and No tender Chest Chest palpation & inspection: normal inspection of the chest Chest/axillae images: 2 1. Positive for tenderness on palpation. Negative for crepitus, ecchymosis, erythema, rash. Resp Effort & Inspection: normal respiratory effort and able to speak in complete sentences Auscultation: clear to auscultation bilaterally Cardio Jugular venous distension: no JVD Heart sounds: S1 normal heart sound present and S2 normal heart sound present GI Inspection: Yes normal to inspection Palpation (GI): Soft to palpation, not firm, nontender, no guarding and not rigid General: No CVA tenderness and Yes no CVA tenderness Back/Spine/Pelvis Back: no CVA tenderness, No CVA tenderness and No back tenderness Skin General skin exam: no rashes or lesions noted, elasticity normal and turgor normal Neuro General: oriented to person, oriented to place, oriented to time, patient oriented x3, gait normal, tone normal, moves all extremities, Normal light touch and pain sensation, no meningeal signs, no focal motor deficits, CN's II-XI intact bilaterally and normal sensation to monofilament Extrem Other: Bilateral lower extremity negative for swelling, pitting edema, or calf tenderness General: Yes normal to inspection, Yes full ROM and Yes capillary refill normal Psych Appearance: grossly normal, well kempt and not disheveled Course Course Course Narrative: This is a rapid medical exam: Additional HPI, ROS, PE not included below will be deferred to primary provider. Patient is a 42-year-old male presenting to the ED with complaint of R sided rib pain radiating towards chest for the past 3 days. Worse with movement, inspiration. Denies cough, fever, chills. Denies fall or other trauma. Plan: EKG, CXR, labs Medical Decision Making Medical Decision Making [facility] Narrative: 42-year-old male with right-sided chest wall rib pain is worse on movement without any trauma. Patient admits to mild pleurisy. Patient denies any recent long travel recent surgery leg swelling, calf pain, coughing up blood or estrogen hormonal use. EKG troponin negative for STEMI. D-dimer negative. Upper normal limit 243. Perc score is 0. Negative for any lower extremity swelling or calf pain. Chest x-ray rib x-ray normal. Liver enzymes normal. UA negative for blood indicate kidney stones. Negative for urinary / bowel incontinence. Not suspecting dissection or heart failure. Chest wall pain Differential Diagnosis Differential Diagnoses: The differential diagnosis associated with the presentation includes ( chest wall pain, pneumonia, hemothorax, pneumothorax, PE, myocardial infarction) Admission/Observation Consideration of admission/observation: Escalation of care including admission/observation considered Consult Healthcare Provider Management of the patient was discussed with: Primary Care Provider Lab Data [facility] Lab Attestation statement: I reviewed the patient's lab results. 04/22/23 12:58 04/22/23 12:58 Labs: Lab Results 04/22/23 04/22/23 Range/Units 12:58 16:52 WBC 9.3 (4.8-10.8) X10*3/uL RBC 5.13 (4.60-5.80) X10*6/uL Hgb 14.5 (14.0-18.0) g/dl Hct 42.6 (42.0-52.0) % MCV 83.0 (80.0-98.0) fL MCH 28.3 (27.0-33.0) pg MCHC 34.0 (31.0-36.0) g/dl RDW 11.9 (11.0-16.0) % Plt Count 369 D (160-400) X10*3/uL MPV 9.1 L (9.4-12.4) fL Immature Gran % (Auto) 0.3 (0.0-0.4) % Neut % (Auto) 70.4 (45-73) % Lymph % (Auto) 20.2 (20-40) % [place] % (Auto) 7.7 (2-11) % Eos % (Auto) 0.8 (0-4) % Baso % (Auto) 0.6 (0-2) % Lymph # (Auto) 1.9 (1.2-4.9) X10*3/uL [place] # (Auto) 0.7 (0.1-1.2) X10*3/uL Eos # (Auto) 0.1 (0.0-0.4) X10*3/uL Baso # (Auto) 0.1 (0.0-0.2) X10*3/uL Abs Immat Gran (auto) 0.03 (0.00-0.03) X10*3/uL Absolute Neuts (auto) 6.6 (2.0-8.3) x10*3/uL Absolute Nucleated RBC 0.000 (0.0-0.012) X10*3/uL Nucleated RBC % (auto) 0.0 (0.0-0.2) /100WBC PT 12.1 (11.1-13.3) SEC INR 1.0 (0.9-1.1) D-Dimer High Sensitivty 243 NG/ML Sodium 140 (135-145) mmol/L Potassium 4.5 (3.3-5.1) mmol/L Chloride 105 (96-108) mmol/L Carbon Dioxide 25 (22-29) mmol/L Anion Gap 15 (12-20) BUN 14 (9-16) mg/dL Creatinine 1.09 (0.5-1.4) mg/dL Estim Creat Clear Calc 101.1 Estimated GFR > 60 Random Glucose 115 (60-115) mg/dL Calcium 9.6 (8.4-10.2) mg/dL Total Bilirubin 0.8 (0.0-1.0) mg/dL Direct Bilirubin 0.3 (0.0-0.5) mg/dL AST 24 (5-37) U/L ALT 25 (0-40) U/L Alkaline Phosphatase 134 H (39-117) U/L Troponin I High Sens < 2.7 (<3.5-35.0) ng/L Total Protein 7.5 (6.5-8.0) g/dL Albumin 4.2 (3.5-5.0) g/dL Lipase 16 (8-78) U/L Urine Color Dark Yellow Urine Appearance Clear Urine pH 6.5 (5.0-9.0) Ur Specific [place] >= 1.030 H (1.005-1.025) Urine Protein 30 (1+) H (Neg-Trace) mg/dL Urine Glucose (UA) Negative (Negative) mg/dL Urine Ketones Trace (Negative) mg/dL Urine Blood Negative (Negative) Urine Nitrite Negative (Negative) Ur Leukocyte Esterase Negative (Negative) Urine RBC 0-2 (0-2) /HPF Urine WBC 0-5 (0-5) /HPF Ur Squamous Epith Cells 0-2 (0-2) /HPF Urine Bacteria None Seen (None Seen) Hyaline Casts 0-2 (0-2) /LPF Independent Interpretation I performed an independent interpretation of an: EKG ( normal negative STEMI), Plain X-Ray and CT Scan Radiology Impression Discussion of test interpretation with radiology: I have reviewed the radiologist's reading. Independent Historian Clinical information obtained from an independent historian. History obtained from or confirmed by: Parent (mom.) External Record Review External record reviewed: Other (Prior ed visit) Prescription Management I considered prescription management with: Pain Medication Discharge Plan Discharge Clinical Impression: Chest wall pain Patient Disposition: Home, Self-Care Instructions: Chest Pain (DC), Chest Wall Pain (ED) Additional Instructions: return to the ED for any chest pain, shortness of breath, coughing up blood, chest pain on inspiration, leg swelling, calf pain, fever, chills, abdominal pain, nausea, vomiting, or any other concerning symptoms. Please follow the primary care provider Prescriptions: New naproxen 500 mg tablet 500 mg PO BID PRN (Reason: pain) 7 Days Qty: 14 0RF No Action cyclobenzaprine 5 mg tablet 5 mg PO TID PRN (Reason: muscle spasm) 7 Days Qty: 21 0RF Stand Alone Forms: Work/School Release Interventions: ED Discharge Assessment Last Done: 04/22/23 18:26 Discharge Date/Time: 04/22/23 18:26 Print Language: Ukrainian
--- NOTE | 2023-04-22 12:46 | ECG_ITS ---
Test Reason : right sided chest pain Blood Pressure : / mmHG Vent. Rate : 071 BPM Atrial Rate : 071 BPM P-R Int : 126 ms QRS Dur : 080 ms QT Int : 432 ms P-R-T Axes : 044 050 035 degrees QTc Int : 469 ms Normal sinus rhythm Normal ECG When compared with ECG of 12-MAY-2022 20:55, No significant change was found Referred By: Caitie Thomson Electronically Signed By:LISA LIMON
[2023-04-22 13:06] LABS: MANUAL DIFF FLAG NO
[2023-04-22 13:09] LABS: Basophils Absolute Auto 0.1 X10*3/uL (0.0-0.2); Basophils Percent Auto 0.6 % (0-2); Eosinophils Absolute Auto 0.1 X10*3/uL (0.0-0.4); Eosinophils Percent Auto 0.8 % (0-4); Hematocrit 42.6 % (42.0-52.0); Hemoglobin 14.5 g/dl (14.0-18.0); Imm Gran Abs Auto 0.03 X10*3/uL (0.00-0.03); Imm Gran Pct Auto 0.3 % (0.0-0.4); Lymphocytes Absolute Auto 1.9 X10*3/uL (1.2-4.9); Lymphocytes Percent Auto 20.2 % (20-40); Mean Corpuscular Hemoglobin 28.3 pg (27.0-33.0); Mean Platelet Volume 9.1 fL (9.4-12.4); Monocytes Absolute Auto 0.7 X10*3/uL (0.1-1.2); Monocytes Percent Auto 7.7 % (2-11); Neutrophils Absolute Auto 6.6 x10*3/uL (2.0-8.3); Neutrophils Percent Auto 70.4 % (45-73); Platelet Count 369 X10*3/uL (160-400); Red Blood Count 5.13 X10*6/uL (4.60-5.80); Red Cell Distribution Width 11.9 % (11.0-16.0); White Blood Count 9.3 X10*3/uL (4.8-10.8)
[2023-04-22 13:14] LABS: Prothrombin Time 12.1 SEC (11.1-13.3)
[2023-04-22 13:21] LABS: Anion Gap 15 (12-20); Blood Urea Nitrogen 14 mg/dL (9-16); Calcium 9.6 mg/dL (8.4-10.2); Carbon Dioxide 25 mmol/L (22-29); Chloride 105 mmol/L (96-108); Creatinine Clr Calc Pharmacy 101.1; Estimated Glomerular Filt Rate > 60; Glucose Random 115 mg/dL (60-115); Potassium 4.5 mmol/L (3.3-5.1); Sodium 140 mmol/L (135-145)
[2023-04-22 13:31] LABS: Troponin-I High Sensitivity < 2.7 ng/L (<3.5-35.0)
[2023-04-22 16:46] VITALS: BP 118/84; PULSE 80; RESP 20; TEMP 36.8; O2SAT 97
[2023-04-22 16:50] LABS: D Dimer High Sensitivity 243 NG/ML
[2023-04-22 16:56] LABS: Alanine Aminotransferase 25 U/L (0-40); Albumin Level 4.2 g/dL (3.5-5.0); Alkaline Phosphatase 134 U/L (39-117); Aspartate Amino Transferase 24 U/L (5-37); Bilirubin Direct 0.3 mg/dL (0.0-0.5); Bilirubin Total 0.8 mg/dL (0.0-1.0); Lipase 16 U/L (8-78); Total Protein 7.5 g/dL (6.5-8.0)
[2023-04-22 17:03] LABS: Appearance Urine Clear; Color Urine Dark Yellow; Glucose Urine UA Negative (Negative); Leukocyte Esterase Urine Negative (Negative); Nitrite Urine Negative (Negative); PH 6.5 (5.0-9.0); Specific Gravity - Urine >= 1.030 (1.005-1.025); UMIC TRIGGER UACC YES; Urine Blood Negative (Negative); Urine Ketones Trace mg/dL (Negative); Urine Protein 30 (1+) mg/dL (Neg-Trace)
[2023-04-22 17:09] LABS: Bacteria Urine None Seen (None Seen); Hyaline Casts Urine 0-2 /LPF (0-2); RBC Urine 0-2 /HPF (0-2); Squamous Epithelial Cell Urine 0-2 /HPF (0-2); WBC Urine 0-5 /HPF (0-5)
[2023-04-22 18:20] VITALS: RESP 18
== END 2023-04-22 18:26 | disposition home or self-care (01) ==
PROVIDERS: Physician Assistant; Registered Nurse Emergency; Emergency Provider Emergency Medicine
DX: R07.89 Other chest pain (principal); R09.1 Pleurisy
CPT/HCPCS: 36415; 71101; 80048; 80076; 81001; 81003; 83690; 84484; 85025; 85379; 85610; 93005; 99283; 99284

== ENCOUNTER → 2023-04-22 12:46 | Outpatient (BNV) | payer SELFPAY | PROVIDERS: Visit Provider Internal Medicine | DX: R07.9 Chest pain, unspecified (principal) | CPT/HCPCS: 93010 ==

== ENCOUNTER 2024-08-23 21:44 | Emergency (ER) | payer MEDICAID, SELFPAY ==
[2024-08-23 21:57] VITALS: BP 184/105; PULSE 95; RESP 18; TEMP 35.8; O2SAT 96; BMI 34.1
== END 2024-08-23 23:20 | disposition left against medical advice (07) ==
PROVIDERS: Emergency Provider Emergency Medicine
DX: R09.81 Nasal congestion (principal); R51.9 Headache, unspecified
CPT/HCPCS: 99281

== ENCOUNTER 2024-09-27 21:50 | Emergency (ER) | payer MEDICAID, SELFPAY ==
[2024-09-27 21:57] VITALS: BP 138/85; PULSE 95; RESP 16; TEMP 36.9; O2SAT 96; BMI 33.9
--- NOTE | 2024-09-27 22:38 | ED.PSYCH ---
HPI - Psych General Chief Complaint: Psychiatric Symptoms Stated Complaint: psych eval mental breakdown Time Seen by Provider: 09/27/24 22:34 Source: patient Mode of arrival: ambulatory Limitations: no limitations History of Present Illness ED Provider: HPI Narrative: Patient's history of depression anxiety had an argument with his been together for last 8 years asked him to leave the house in patient has been so on the street all day with feeling of increased depression and suicidal ideation with no plans patient has been taking his medication never had attempted any suicide in the past wants to talk to therapist feel unsafe felt cutting himself Related Data Home Medications ?Medication ?Instructions ?Recorded ?Confirmed aspirin 81 mg tablet,delayed 81 mg DAILY 09/27/24 09/27/24 release clonidine HCl 0.1 mg tablet 0.1 mg PO TID PRN anxiety 09/27/24 09/27/24 gabapentin 300 mg capsule 600 mg PO TID 09/27/24 09/27/24 hydroxyzine HCl 25 mg tablet 25 - 50 mg PO TID PRN anxiety 09/27/24 09/27/24 isoniazid 300 mg tablet 300 mg PO DAILY 09/27/24 09/27/24 melatonin 5 mg tablet 5 mg PO BEDTIME PRN Insomnia 09/27/24 09/27/24 mirtazapine 15 mg tablet 15 mg PO BEDTIME 09/27/24 09/27/24 nicotine (polacrilex) 2 mg gum 2 mg PO QID 09/27/24 09/27/24 nicotine (polacrilex) 4 mg buccal 4 mg buccal Q2H PRN Nicotine 09/27/24 09/27/24 lozenge Cravings testosterone 1 % (50 mg/5 gram) 50 mg DAILY 09/27/24 09/27/24 transdermal gel packet methadone 5 mg/0.5 mL oral syringe 90 mg PO DAILY 09/28/24 09/28/24 (FOR ORAL USE ONLY) Previous Rx's ?Medication ?Instructions ?Recorded cyclobenzaprine 5 mg tablet 5 mg PO TID PRN muscle spasm 7 09/20/22 days #21 tabs naproxen 500 mg tablet 500 mg PO BID PRN pain 7 days #14 04/22/23 tabs Allergies Allergy/AdvReac Type Severity Reaction Status Date / Time No Known Allergies Allergy Verified 09/27/24 21:58 [No Known Allergies*] Review of Systems Review of Systems: Yes all other systems are reviewed and are negative [facility] Past Medical History Medical History (Updated 09/28/24 @ 15:29 by Elisabeth Silverio DO) Anxiety Depression with suicidal ideation IV drug user No known health problems Social History Social History Unable to assess alcohol history related to: Unknown Alcohol intake: current Alcohol intake frequency: a few times a month Alcohol type: hard liquor Patient Tobacco Use Status: Current everyday Tobacco user Tobacco use type: Cigarette Cigarettes Per Day: 6 Smoked in Last 30 Days: Yes Use of substances other than those prescribed or required for medical reasons: Unknown Substance Use Type: Crack/Cocaine and Heroin Advance Directives: No Advance Directives Information Provided: No Current occupational status: employed 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 Oriented X3. No acute distress. Eyes: PERRLA, No Nystagmus ENT: Pharynx normal. Oral Mucosa moist Neck: Normal inspection. Neck supple. CVS: Normal heart rate and rhythm. Pulses normal. Respiratory: No respiratory distress. Equal air entry bilateral, no wheezing/rales/rhonchi Abdomen: Soft and nontender. Bowel sounds are present, no mass palpable, no CVA tenderness Skin: Skin warm and dry. Normal skin color. Normal skin turgor. Extremities: No lower extremity edema. No calf tenderness Psych: Depressed feels suicidal with no plan no hallucination no delusions Neuro: Oriented X 3. No motor deficit. No sensory deficit.No cerebellar signs , cranial nerves II-XII intact Course Course Course Narrative: Time: 07:11 Date: 09/28/24 Provider: Elisabeth Silverio DO Patient in physician observation for psychiatric evaluation.? No acute events reported overnight. No current complaints. VS stable.? pending CARE team evaluation. Will continue to monitor. Reevaluation(s) Reevaluation #1: Time: 15:29 Date: 09/28/24 Provider: Elisabeth Silverio DO Physician observation ended at 329pm. Patient has been cleared for discharge by the CARE team. Will follow up as an outpatient at [facility] today. Medications Administered Generic Name Dose Route Start Last Admin Trade Name Selina PRN Reason Stop Dose Admin Aspirin 81 mg 09/28/24 10:45 09/28/24 11:14 Aspirin Enteric Coated 81 Mg Tablet.Dr PO 81 mg DAILY RHEA Administration Clonidine HCl 0.1 mg 09/28/24 10:36 09/28/24 13:11 Clonidine Hcl 0.1 Mg Tablet PO 0.1 mg TID PRN Administration anxiety Protocol Gabapentin 600 mg 09/28/24 10:45 09/28/24 11:14 Gabapentin 300 Mg Capsule PO 600 mg TID RHEA Administration Hydroxyzine HCl 25 mg 09/28/24 10:36 09/28/24 13:11 Hydroxyzine Hcl 25 Mg Tablet PO 25 mg TID PRN Administration anxiety Methadone HCl 90 mg 09/28/24 11:15 09/28/24 11:25 Methadone Hcl 20 Mg/2 Ml Oral.Conc PO 90 mg DAILY RHEA Administration Nicotine Polacrilex 2 mg 09/28/24 13:00 09/28/24 13:11 Nicotine Polacrilex 2 Mg Gum BUCCAL Not Given QID RHEA Nicotine Polacrilex 4 mg 09/28/24 10:36 09/28/24 13:11 Nicotine Polacrilex Lozenge 4 Mg Lozenge BUCCAL 4 mg Q2H PRN Administration Nicotine Cravings Pat Own Med ( 300 mg 09/28/24 10:45 09/28/24 11:15 Isoniazid 300 Mg PO 300 mg Tablet) DAILY RHEA Administration Discontinued Medications Generic Name Dose Route Start Last Admin Trade Name Selina PRN Reason Stop Dose Admin Lorazepam 2 mg 09/27/24 22:46 09/27/24 23:11 Lorazepam 1 Mg Tablet PO 09/27/24 22:47 2 mg ONCE ONE Administration Medical Decision Making Medical Decision Making MDM Narrative: Patient's depression anxiety with suicidal ideation will get care team involved for evaluation and possible admission Lab Data MDM Lab Attestation statement: I reviewed the patient's lab results. 09/27/24 22:43 09/27/24 22:43 Labs: Lab Results 09/27/24 Range/Units 22:43 WBC 7.0 (4.8-10.8) X10*3/uL RBC 5.10 (4.60-5.80) X10*6/uL Hgb 14.2 (14.0-18.0) g/dl Hct 40.9 L (42.0-52.0) % MCV 80.2 (80.0-98.0) fL MCH 27.8 (27.0-33.0) pg MCHC 34.7 (31.0-36.0) g/dl RDW 12.8 (11.0-16.0) % Plt Count 232 D (160-400) X10*3/uL MPV 9.8 (9.4-12.4) fL Absolute Nucleated RBC 0.000 (0.0-0.012) X10*3/uL Nucleated RBC % (auto) 0.0 (0.0-0.2) /100WBC Sodium 144 (135-145) mmol/L Potassium 4.2 (3.3-5.1) mmol/L Chloride 109 H (96-108) mmol/L Carbon Dioxide 27 (22-29) mmol/L Anion Gap 12 (12-20) BUN 9 (9-16) mg/dL Creatinine 1.17 (0.5-1.4) mg/dL Estim Creat Clear Calc 95.7 Estimated GFR > 60 Random Glucose 114 (60-115) mg/dL Calcium 9.7 (8.4-10.2) mg/dL Total Bilirubin 0.4 (0.0-1.0) mg/dL AST 30 (5-37) U/L ALT 17 (0-40) U/L Alkaline Phosphatase 126 H (39-117) U/L Total Protein 7.3 (6.5-8.0) g/dL Albumin 4.4 (3.5-5.0) g/dL Ethyl Alcohol < 10 mg/dL Discharge Plan Discharge Clinical Impression: Suicidal ideation, Acute anxiety Depression Qualifiers: Depression Type: unspecified Qualified Code(s): F32.A - Depression, unspecified Patient Disposition: Home, Self-Care Instructions: Anxiety (ED), Depression (ED) Additional Instructions: You were seen in our Emergency Department today for treatment of a behavioral health issue. It is important after your visit that you follow up with either your behavioral health provider or a primary care doctor within 7 days.? If you have trouble finding a therapist you can reach out to [address] [phone] The National Suicide and Crisis Lifeline can be reached 7 days a week 24 hours a day.? Call [phone] to speak with someone.? Return for any worsening symptoms or concerns such as thoughts of self harm or harm to others. Please call 911 if you feel your mental health is worsening.? Prescriptions: No Action cyclobenzaprine 5 mg tablet 5 mg PO TID PRN (Reason: muscle spasm) 7 Days Qty: 21 0RF naproxen 500 mg tablet 500 mg PO BID PRN (Reason: pain) 7 Days Qty: 14 0RF nicotine (polacrilex) 2 mg gum 2 mg PO QID isoniazid 300 mg tablet 300 mg PO DAILY nicotine (polacrilex) 4 mg lozenge 4 mg buccal Q2H PRN (Reason: Nicotine Cravings) melatonin 5 mg tablet 5 mg PO BEDTIME PRN (Reason: Insomnia) clonidine HCl 0.1 mg tablet 0.1 mg PO TID PRN (Reason: anxiety) aspirin [Aspir-81] 81 mg Tablet,Delayed Release (Dr/Ec) 81 mg DAILY gabapentin 300 mg Capsule 600 mg PO TID hydroxyzine HCl 25 mg tablet 25 - 50 mg PO TID PRN (Reason: anxiety) mirtazapine 15 mg Tablet 15 mg PO BEDTIME testosterone 1 % (50 mg/5 gram) Gel In Packet 50 mg DAILY methadone 5 mg/0.5 mL Syringe 90 mg PO DAILY Interventions: [place]-Suicide Risk Severity Scale Last Done: 09/27/24 22:43 Print Language: Tristanian
[2024-09-27 22:42] VITALS: BP 146/90; PULSE 91; RESP 16; TEMP 36.6; O2SAT 97
[2024-09-27 22:48] LABS: Hematocrit 40.9 % (42.0-52.0); Hemoglobin 14.2 g/dl (14.0-18.0); Mean Corpuscular HGB Conc 34.7 g/dl (31.0-36.0); Mean Corpuscular Hemoglobin 27.8 pg (27.0-33.0); Mean Corpuscular Volume 80.2 fL (80.0-98.0); Mean Platelet Volume 9.8 fL (9.4-12.4); Platelet Count 232 X10*3/uL (160-400); Red Cell Distribution Width 12.8 % (11.0-16.0)
[2024-09-27 23:00] LABS: Ethanol < 10 mg/dL
[2024-09-27 23:01] LABS: Alanine Aminotransferase 17 U/L (0-40); Albumin Level 4.4 g/dL (3.5-5.0); Alkaline Phosphatase 126 U/L (39-117); Anion Gap 12 (12-20); Aspartate Amino Transferase 30 U/L (5-37); Bilirubin Total 0.4 mg/dL (0.0-1.0); Blood Urea Nitrogen 9 mg/dL (9-16); Calcium 9.7 mg/dL (8.4-10.2); Carbon Dioxide 27 mmol/L (22-29); Chloride 109 mmol/L (96-108); Creatinine Clr Calc Pharmacy 95.7; Estimated Glomerular Filt Rate > 60; Glucose Random 114 mg/dL (60-115); Potassium 4.2 mmol/L (3.3-5.1); Sodium 144 mmol/L (135-145); Total Protein 7.3 g/dL (6.5-8.0)
[2024-09-27] MEDS: LORazepam 1 MG TABLET 2 MG PO (23:11)
[2024-09-28 06:27] VITALS: BP 114/71; PULSE 55; RESP 18; TEMP 36.2; O2SAT 96
--- NOTE | 2024-09-28 06:38 | MHC.CARE ---
Call attempto to significant other, Cynthia Francoisdonado, at the number listed in patient's chart, but the phone number is no longer in service. Patient has been asleep all night, unable to arouse. 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 He stated he was tired and needed to rest. No contact with patient on the overnight. He also has not provided a sample for tox screen.
--- NOTE | 2024-09-28 07:08 | PC.NURSE ---
ASSUMED CARE OF PT AT APPROXIMATELY 0645. PT APPEARS TO BE SLEEPING. NO APPARENT DISTRESS AT THIS TIME. AWAITING CARE TEAM EVALUATION.
--- NOTE | 2024-09-28 11:06 | HE.PHANOTE ---
METHADONE CONFIRMATION FORM RECEIVED FROM JAYRO CALLAHAN. PATIENT TAKES 90 MG LAST DOSE 09/27/24
[2024-09-28] MEDS: Gabapentin 300 MG CAPSULE 600 MG PO (11:14)
[2024-09-28] MEDS: Aspirin Enteric Coated 81 MG TABLET.DR PO (11:14)
[2024-09-28] MEDS: methADONE HCl 20 MG/2 ML ORAL.CONC 90 MG PO (11:25)
--- NOTE | 2024-09-28 11:58 | MHC.CARE ---
T/w faxed referral for detox at [facility], as patient requested.
[2024-09-28] MEDS: cloNIDine HCL 0.1 MG TABLET PO (13:11)
[2024-09-28] MEDS: Nicotine Polacrilex Lozenge 4 MG LOZENGE BUCCAL (13:11)
[2024-09-28] MEDS: hydrOXYzine HCL 25 MG TABLET PO (13:11)
[2024-09-28 15:39] VITALS: BP 124/82; PULSE 62; RESP 16; TEMP 36.8; O2SAT 98
== END 2024-09-28 16:42 | disposition home or self-care (01) ==
PROVIDERS: Emergency Provider Internal Medicine
DX: F33.1 Major depressive disorder, recurrent, moderate (principal); R45.851 Suicidal ideations; F41.1 Generalized anxiety disorder; Z79.899 Other long term (current) drug therapy; Z51.81 Encounter for therapeutic drug level monitoring
CPT/HCPCS: 36415; 80053; 80307; 85027; 99284; 99285; S9485

== ENCOUNTER 2024-10-10 18:31 | Emergency (ER) | payer MEDICAID, SELFPAY ==
[2024-10-10 18:35] VITALS: BP 120/75; PULSE 50; O2SAT 99
[2024-10-10 19:03] VITALS: BP 113/65; PULSE 52; RESP 16; TEMP 36.6; O2SAT 97; BMI 36.3
--- NOTE | 2024-10-10 20:23 | ED.GENADULT ---
HPI - General Adult General Chief complaint: Altered Mental Status Stated complaint: sob after starting new muscle relaxer Time Seen by Provider: 10/10/24 20:15 Source: patient Mode of arrival: EMS Limitations: no limitations History of Present Illness ED Provider: Dr. Yakov Burgos HPI narrative: 44-year-old male with a history of depression, anxiety, injection drug use who presents emergency department for evaluation lightheadedness, dizziness, shortness of breath, shakiness in his hands and legs which occurred 30 minutes after taking Zanaflex. Patient states that he was having muscle spasms in his neck and back for couple weeks. Patient took a Zanaflex for the 1st time at around 15:00 hours. Approximately 30 minutes later he developed dizziness is if he was going to pass out of needed to lie down, shortness of breath, shakiness of his hands, legs and feet. patient was concerned that he might of had a low sugar , therefore he ate Jell-O but this did not improve his symptoms Related Data Home Medications ?Medication ?Instructions ?Recorded ?Confirmed aspirin 81 mg tablet,delayed 81 mg DAILY 09/27/24 09/27/24 release clonidine HCl 0.1 mg tablet 0.1 mg PO TID PRN anxiety 09/27/24 09/27/24 gabapentin 300 mg capsule 600 mg PO TID 09/27/24 09/27/24 hydroxyzine HCl 25 mg tablet 25 - 50 mg PO TID PRN anxiety 09/27/24 09/27/24 isoniazid 300 mg tablet 300 mg PO DAILY 09/27/24 09/27/24 melatonin 5 mg tablet 5 mg PO BEDTIME PRN Insomnia 09/27/24 09/27/24 mirtazapine 15 mg tablet 15 mg PO BEDTIME 09/27/24 09/27/24 nicotine (polacrilex) 2 mg gum 2 mg PO QID 09/27/24 09/27/24 nicotine (polacrilex) 4 mg buccal 4 mg buccal Q2H PRN Nicotine 09/27/24 09/27/24 lozenge Cravings testosterone 1 % (50 mg/5 gram) 50 mg DAILY 09/27/24 09/27/24 transdermal gel packet methadone 5 mg/0.5 mL oral syringe 90 mg PO DAILY 09/28/24 09/28/24 (FOR ORAL USE ONLY) Previous Rx's ?Medication ?Instructions ?Recorded cyclobenzaprine 5 mg tablet 5 mg PO TID PRN muscle spasm 7 09/20/22 days #21 tabs naproxen 500 mg tablet 500 mg PO BID PRN pain 7 days #14 04/22/23 tabs Allergies Allergy/AdvReac Type Severity Reaction Status Date / Time No Known Allergies (No Known Allergy Verified 10/10/24 19:04 Allergies*) Review of Systems Review of Systems: Yes all other systems are reviewed and are negative [facility] Past Medical History Medical History (Updated 10/11/24 @ 00:00 by Lauri Salgado) Anxiety Depression with suicidal ideation IV drug user No known health problems Social History Social History Unable to assess alcohol history related to: Unknown Alcohol intake: current Alcohol intake frequency: does not drink Alcohol type: hard liquor Patient Tobacco Use Status: Current everyday Tobacco user Tobacco use type: Cigarette Cigarettes Per Day: 6 Smoked in Last 30 Days: No Use of substances other than those prescribed or required for medical reasons: No Substance Use Type: Crack/Cocaine and Heroin Advance Directives: No Advance Directives Information Provided: No Do you have a plan to hurt others: No Plan Current occupational status: employed 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 Physical Exam ED Vital Signs: Vital Signs - 24 hr 10/10/24 19:03 10/10/24 20:33 10/10/24 20:34 Temperature 97.9 F 97.8 F 97.8 F Pulse Rate 52 52 52 Respiratory Rate 16 17 17 Blood Pressure 113/65 100/60 100/60 Pulse Oximetry 97 99 99 Oxygen Delivery Method Room Air Room Air Room Air BMI result Body Mass Index 36.3 vital signs were normal Exam: General: Awake, alert in no distress Head: Normocephalic, atraumatic EENT: PERRL, Lids normal, sclera normal, conjunctiva normal, nose normal , ears normal, throat without erythema or exudates Neck: Supple, no adenopathy Lung: breath sounds symmetric, no wheezing, rales or rhonchi Chest: symmetric movement, nontender Heart: regular rate and rhythm, normal S1, S2 no murmurs or rubs Abdomen: soft, non-tender, nondistended, normal bowel sounds Back: no vertebral tenderness, no CVAT Extremities: no deformities, moves all extremities symmetrically Neuro: Awake, alert, oriented, normal speech, cranial nerves intact, moves all extremities symmetrically Psych: Pleasant, cooperative Medical Decision Making Medical Decision Making MDM Narrative: 44-year-old male with a history of depression, anxiety, injection drug use who presents emergency department for evaluation lightheadedness, dizziness, shortness of breath, shakiness in his hands and legs which occurred 30 minutes after taking Zanaflex. Patient states that he was having muscle spasms in his neck and back for couple weeks. Patient took a Zanaflex for the 1st time at around 15:00 hours. Approximately 30 minutes later he developed dizziness is if he was going to pass out of needed to lie down, shortness of breath, shakiness of his hands, legs and feet. patient was concerned that he might of had a low sugar , therefore he ate Jell-O but this did not improve his symptoms. Vital signs were normal. Physical examination was unremarkable. Differential diagnosis: Includes but is not limited to Adverse drug reaction, allergic reaction, viral syndrome, other drug ingestion, alcohol intoxication Course: The patient's physical examination was unremarkable. The patient was feeling better by the time I evaluated in the emergency department. The patient most likely had an adverse reaction to the Zanaflex and told not to his medication again. Patient was advised to follow-up with his PCP to discuss further treatment of his neck muscle spasms. Admission/Observation Consideration of admission/observation: Escalation of care including admission/observation considered ( no) Chronic Conditions Patient?s care impacted by: Other ( depression, anxiety) Discharge Plan Discharge Clinical Impression: Dizziness, Adverse drug reaction Patient Disposition: Home, Self-Care Additional Instructions: At this time, I believe that the symptoms that you had were caused by the Zanaflex. Do not take this medication again. This medication can last at least 8 hours so I want you to go home and go to bed, when you wake up in the morning you should feel better. You should talk to your doctor about getting on a different medication for your muscle spasms. Continue taking your other medications as prescribed by your providers. Follow-up with your doctor in 2 days. Please return to the emergency department if your symptoms get worse or if you develop any symptoms that are concerning to you. Prescriptions: No Action cyclobenzaprine 5 mg tablet 5 mg PO TID PRN (Reason: muscle spasm) 7 Days Qty: 21 0RF naproxen 500 mg tablet 500 mg PO BID PRN (Reason: pain) 7 Days Qty: 14 0RF nicotine (polacrilex) 2 mg gum 2 mg PO QID isoniazid 300 mg tablet 300 mg PO DAILY nicotine (polacrilex) 4 mg lozenge 4 mg buccal Q2H PRN (Reason: Nicotine Cravings) melatonin 5 mg tablet 5 mg PO BEDTIME PRN (Reason: Insomnia) clonidine HCl 0.1 mg tablet 0.1 mg PO TID PRN (Reason: anxiety) aspirin [Aspir-81] 81 mg Tablet,Delayed Release (Dr/Ec) 81 mg DAILY gabapentin 300 mg Capsule 600 mg PO TID hydroxyzine HCl 25 mg tablet 25 - 50 mg PO TID PRN (Reason: anxiety) mirtazapine 15 mg Tablet 15 mg PO BEDTIME testosterone 1 % (50 mg/5 gram) Gel In Packet 50 mg DAILY methadone 5 mg/0.5 mL Syringe 90 mg PO DAILY Interventions: ED Discharge Assessment Last Done: 10/10/24 20:34 Discharge Date/Time: 10/10/24 20:35 Print Language: Setswana
[2024-10-10 20:33] VITALS: BP 100/60; PULSE 52; RESP 17; TEMP 36.6; O2SAT 99
[2024-10-10 20:34] VITALS: BP 100/60; PULSE 52; RESP 17; TEMP 36.6; O2SAT 99
== END 2024-10-10 20:35 | disposition home or self-care (01) ==
PROVIDERS: Emergency Provider Emergency Medicine Emergency Medical Services
DX: R42 Dizziness and giddiness (principal); T42.8X5A Adverse effect of antiparkinsonism drugs and other central muscle-tone depressants, initial encounter; Y92.9 Unspecified place or not applicable
CPT/HCPCS: 99283; 99284

== ENCOUNTER 2024-12-15 13:54 | Inpatient (IN) | payer OTHER, SELFPAY ==
--- NOTE | ~2024-12-15 | XR_ITS ---
CLINICAL HISTORY: on INH, h o tb, no symptoms 2 view chest x-ray Comparison: CR/SR - XR RIBS 3 VIEWS MINIMUM WITH CHEST RIGHT - 04/22/23 13:03 EST CR/SR - XR CHEST 2 VIEWS - 05/12/22 21:42 EST Findings: The lungs are clear. No consolidative process. No evidence of tuberculosis. Normal size heart. No acute fracture. IMPRESSION: 1. No acute findings. This document has been electronically signed by: Piedad Flores MD on 12/15/2024 17:06:46
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
[2024-12-15 13:56] VITALS: BP 145/93; PULSE 77; RESP 18; TEMP 36.3; O2SAT 99; BMI 31.3
[2024-12-15 14:34] LABS: MANUAL DIFF FLAG NO
[2024-12-15 14:36] LABS: Hematocrit 44.7 % (42.0-52.0); Hemoglobin 15.7 g/dl (14.0-18.0); Imm Gran Abs Auto 0.02 X10*3/uL (0.00-0.03); Imm Gran Pct Auto 0.2 % (0.0-0.4); Lymphocytes Absolute Auto 2.5 X10*3/uL (1.2-4.9); Mean Corpuscular HGB Conc 35.1 g/dl (31.0-36.0); Mean Corpuscular Hemoglobin 27.7 pg (27.0-33.0); Mean Corpuscular Volume 79.0 fL (80.0-98.0); NRBC Abs Auto 0.000 X10*3/uL (0.0-0.012); NRBC Pct Auto 0.0 /100WBC (0.0-0.2); Platelet Count 457 X10*3/uL (160-400); Red Blood Count 5.66 X10*6/uL (4.60-5.80); White Blood Count 8.4 X10*3/uL (4.8-10.8)
--- NOTE | 2024-12-15 15:00 | PC.NURSE ---
this rn was going through the pt's home medications that he brought with him, pt is currently taking preventative medications for TB's exposure about 6 months ago, pt is currently asymptomatic special agent in charge aware and plan to move the pt to ed 1 pt also takes methadone and has take home bottles of 95mg, pt did take his methadone today and gets it from [facility], all meds locked up with pharmacy
[2024-12-15 15:01] LABS: Acetaminophen LAB < 3 mcg/mL (<30); Alanine Aminotransferase 32 U/L (0-40); Albumin Level 5.0 g/dL (3.5-5.0); Alkaline Phosphatase 130 U/L (39-117); Anion Gap 18 (12-20); Aspartate Amino Transferase 34 U/L (5-37); Blood Urea Nitrogen 13 mg/dL (9-16); Calcium 9.8 mg/dL (8.4-10.2); Carbon Dioxide 24 mmol/L (22-29); Chloride 105 mmol/L (96-108); Creatinine Clr Calc Pharmacy 96.3; Estimated Glomerular Filt Rate > 60; Lipase 21 U/L (8-78); Magnesium 2.1 mg/dL (1.6-2.6); Potassium 3.8 mmol/L (3.3-5.1); Salicylate < 5.0 mg/dL (15-30); Sodium 143 mmol/L (135-145); Total Protein 8.0 g/dL (6.5-8.0)
--- NOTE | 2024-12-15 15:09 | PC.NURSE ---
Charge nurse made aware pt being on PO treatment for ? TB exposure, pt moved to ED1 with 1:1 sitter until further work up can be completed.
--- NOTE | 2024-12-15 15:22 | PC.NURSE ---
Patient transferred into ED1 d/t need for neg pressure d/t question of TB - verbal report received from Arya, worklist to be completed. Per [facility] provider to order patient's home TB medication, to be administered here as pt. specific med.
--- NOTE | 2024-12-15 15:24 | PC.NURSE ---
Isonazid 300mg provided to patient from patient medication bottle per MD order. Provider is aware and will order future doses in MAR
--- NOTE | 2024-12-15 15:48 | PC.NURSE ---
Isonazid labeled by pharmacy and placed in patient bin in [facility].
[2024-12-15] MEDS: ISONIAZID 300 MG 300 EACH PO (15:50)
[2024-12-15 16:06] VITALS: BP 118/85; PULSE 59; RESP 18; TEMP 37.1; O2SAT 97
--- NOTE | 2024-12-15 16:48 | PC.NURSE ---
Med rec completed w/ patient, patient states he had taken all his meds last yesterday except his methadone which is 95 mg per patient and taken this morning w/ his take home vials. [place] after hours line has a full voicemail, regular line called left message for dose verification. Previous RN had sent medications up to pharmacy.
--- NOTE | 2024-12-15 18:25 | MHC.CARE ---
Evaluated by the CARE Team and is appropriate for IPLOC at this time. Pt is aware/agreeable and is on a section 12A for safety.
[2024-12-15 18:29] VITALS: BP 108/78; PULSE 58; RESP 18; O2SAT 96
--- NOTE | 2024-12-15 18:39 | PC.NURSE ---
Pt taken off isolation by provider, transferred back to 6H. Primary RN Arya & Amy made aware.
--- NOTE | 2024-12-15 20:52 | PC.NURSE ---
this rn assumed care of pt @ 1900. pt calm and cooperative with care 1:[address] pt medicated according to pawan
--- NOTE | 2024-12-15 23:00 | PC.NURSE ---
pt utilizing home cpap device to be kept in jsoe port with remaining belongings when not in use. rt involved in pt set up
[2024-12-16 06:39] VITALS: BP 122/85; PULSE 56; RESP 16; TEMP 36.3; O2SAT 96
[2024-12-16 07:27] LABS: Appearance Urine Clear; Glucose Urine UA Negative (Negative); PH 6.0 (5.0-9.0); Specific Gravity - Urine >= 1.030 (1.005-1.025); UMIC TRIGGER UACC YES
[2024-12-16 07:39] LABS: Cannabinoid Screen Urine Not Detected (Not Detect)
--- NOTE | 2024-12-16 09:21 | PHA.MEDREC ---
Pharmacy Consult ? Medication Reconciliation Pharmacy has completed the medication reconciliation. Med rec completed by nursing, verified by pharmacy. Reviewed claim history and patient's RX bottles, confirmed with Lisa that patient self reported mirtazapine and felexeril despite no RX bottle or recent cliam HX
[2024-12-16] MEDS: Aspirin Enteric Coated 81 MG TABLET.DR PO (11:31)
[2024-12-16] MEDS: ISONIAZID 300 MG 300 EACH PO (11:31)
[2024-12-16] MEDS: methADONE HCl 20 MG/2 ML ORAL.CONC 95 MG PO (11:31)
--- NOTE | 2024-12-16 13:41 | ECG_ITS ---
Test Reason : CHECK PRLONG QT Blood Pressure : */* mmHG Vent. Rate : 56 BPM Atrial Rate : 56 BPM P-R Int : 130 ms QRS Dur : 86 ms QT Int : 548 ms P-R-T Axes : 28 12 32 degrees QTcB Int : 528 ms Sinus bradycardia Prolonged QT Abnormal ECG When compared with ECG of 22-Apr-2023 12:52, QT has lengthened Referred By: Héctor Collier Electronically Signed By: LISA LIMON
[2024-12-16 14:55] VITALS: BP 125/76; PULSE 69; RESP 16; TEMP 36.4; O2SAT 97
[2024-12-16 15:32] VITALS: BP 125/76
[2024-12-16] MEDS: Nicotine Polacrilex Lozenge 4 MG LOZENGE BUCCAL (15:35)
[2024-12-16 15:56] VITALS: BMI 31.8
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
[2024-12-16 19:55] VITALS: BP 110/61; PULSE 62; TEMP 36.4; O2SAT 98
[2024-12-17 08:00] VITALS: BP 97/69; PULSE 46; RESP 18; TEMP 36.3; O2SAT 96
[2024-12-17] MEDS: methADONE HCl 20 MG/2 ML ORAL.CONC 95 MG PO (08:19)
[2024-12-17] MEDS: Aspirin Enteric Coated 81 MG TABLET.DR PO (09:04)
[2024-12-17] MEDS: ISONIAZID 300 MG 300 EACH PO (09:05)
[2024-12-17] MEDS: Magnesium Hydrox/Alum Hydrox 30 ML ORAL.SUSP PO (09:30)
[2024-12-17] MEDS: Nicotine Polacrilex Lozenge 4 MG LOZENGE BUCCAL ×3 (09:30→21:03)
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
[2024-12-17 12:09] VITALS: BP 124/94
[2024-12-17] MEDS: methADONE HCl 20 MG/2 ML ORAL.CONC 5 MG PO (13:16)
[2024-12-17 20:00] VITALS: BP 130/81; PULSE 65; RESP 18; TEMP 36.6; O2SAT 98
[2024-12-18 08:00] VITALS: BP 118/61; PULSE 53; RESP 18; TEMP 36.3; O2SAT 98
[2024-12-18] MEDS: methADONE HCl 20 MG/2 ML ORAL.CONC 100 MG PO (08:15)
[2024-12-18] MEDS: buPROPion HCl XL 150 MG TAB.ER.24H PO (08:17)
[2024-12-18] MEDS: ISONIAZID 300 MG 300 EACH PO (08:18)
[2024-12-18] MEDS: Nicotine Polacrilex Lozenge 4 MG LOZENGE BUCCAL ×4 (08:20→21:20)
[2024-12-18] MEDS: TESTOSTERONE 50 EACH TOPICAL (09:22)
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
[2024-12-18] MEDS: methADONE HCl 20 MG/2 ML ORAL.CONC 5 MG PO (13:10)
[2024-12-18 20:00] VITALS: BP 145/78; PULSE 79; RESP 18; TEMP 37.2; O2SAT 98
[2024-12-19] MEDS: methADONE HCl 20 MG/2 ML ORAL.CONC 105 MG PO (08:51)
[2024-12-19] MEDS: Nicotine Polacrilex Lozenge 4 MG LOZENGE BUCCAL ×4 (08:54→22:30)
[2024-12-19] MEDS: buPROPion HCl XL 150 MG TAB.ER.24H PO (08:55)
[2024-12-19] MEDS: ISONIAZID 300 MG 300 EACH PO (08:56)
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
[2024-12-19 12:30] VITALS: BP 134/88
[2024-12-19] MEDS: TESTOSTERONE 50 EACH TOPICAL (12:34)
[2024-12-19 14:49] VITALS: BP 134/90
[2024-12-19 22:30] VITALS: BP 108/72
[2024-12-20 00:20] VITALS: BP 108/72; PULSE 71; RESP 16; TEMP 36.9; O2SAT 99
[2024-12-20] MEDS: methADONE HCl 20 MG/2 ML ORAL.CONC 105 MG PO (07:53)
[2024-12-20] MEDS: ISONIAZID 300 MG 300 EACH PO (09:34)
[2024-12-20] MEDS: buPROPion HCl XL 300 MG TAB.ER.24H PO (09:34)
[2024-12-20] MEDS: TESTOSTERONE 50 EACH TOPICAL (09:34)
[2024-12-20] MEDS: Nicotine Polacrilex Lozenge 4 MG LOZENGE BUCCAL ×4 (09:37→20:51)
[2024-12-20 09:43] VITALS: BP 121/81
[2024-12-20 14:31] VITALS: BP 117/68
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
[2024-12-20 20:05] VITALS: BP 121/70; PULSE 70; RESP 16; TEMP 36.2; O2SAT 98
[2024-12-20 20:52] VITALS: BP 121/70
[2024-12-21] MEDS: methADONE HCl 20 MG/2 ML ORAL.CONC 105 MG PO (08:28)
[2024-12-21 08:29] VITALS: BP 100/54
[2024-12-21] MEDS: buPROPion HCl XL 300 MG TAB.ER.24H PO (08:29)
[2024-12-21] MEDS: ISONIAZID 300 MG 300 EACH PO (08:30)
[2024-12-21] MEDS: TESTOSTERONE 50 EACH TOPICAL (08:32)
[2024-12-21] MEDS: Nicotine Polacrilex Lozenge 4 MG LOZENGE BUCCAL ×5 (08:49→21:04)
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
[2024-12-21 12:47] VITALS: BP 116/69
[2024-12-21 18:16] VITALS: BP 108/70
[2024-12-21 20:00] VITALS: BP 135/72; PULSE 73; RESP 18; TEMP 37; O2SAT 100
[2024-12-22 08:00] VITALS: BP 103/63; PULSE 58; RESP 16; TEMP 36.6; O2SAT 98
[2024-12-22] MEDS: methADONE HCl 20 MG/2 ML ORAL.CONC 105 MG PO (08:03)
[2024-12-22] MEDS: ISONIAZID 300 MG 300 EACH PO (08:29)
[2024-12-22] MEDS: Nicotine Polacrilex Lozenge 4 MG LOZENGE BUCCAL ×5 (08:54→21:45)
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
[2024-12-22] MEDS: buPROPion HCl XL 150 MG TAB.ER.24H 450 MG PO (09:50)
[2024-12-22] MEDS: Magnesium Hydrox/Alum Hydrox 30 ML ORAL.SUSP PO (12:26)
[2024-12-22 14:05] VITALS: BP 118/82
[2024-12-22 20:00] VITALS: BP 134/80; PULSE 73; RESP 15; TEMP 36.6; O2SAT 99
[2024-12-23] MEDS: methADONE HCl 20 MG/2 ML ORAL.CONC 105 MG PO (07:57)
[2024-12-23 08:00] VITALS: BP 103/59; PULSE 60; RESP 18; TEMP 36.3; O2SAT 98
[2024-12-23] MEDS: ISONIAZID 300 MG 300 EACH PO (08:35)
[2024-12-23] MEDS: buPROPion HCl XL 150 MG TAB.ER.24H 450 MG PO (08:36)
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
[2024-12-23] MEDS: TESTOSTERONE 50 EACH TOPICAL (08:37)
[2024-12-23] MEDS: Nicotine Polacrilex Lozenge 4 MG LOZENGE BUCCAL ×5 (08:44→20:16)
--- NOTE | 2024-12-23 08:58 | PC.NURSE ---
Pt attempted to give blood however software engineer web applications unable to find viable vein. Pt asked software engineer web applications to stop, he complied.
[2024-12-23 13:15] VITALS: BP 110/72
[2024-12-23] MEDS: Nicotine 21 MG PATCH.TD24 TRANSDERMA (16:02)
[2024-12-23 20:00] VITALS: BP 132/86; PULSE 69; RESP 16; TEMP 36.9; O2SAT 99
[2024-12-23 21:21] VITALS: BP 128/82
[2024-12-24] MEDS: methADONE HCl 20 MG/2 ML ORAL.CONC 105 MG PO (07:58)
[2024-12-24 08:00] VITALS: BP 120/61; PULSE 62; RESP 18; TEMP 36.4; O2SAT 98
[2024-12-24] MEDS: buPROPion HCl XL 150 MG TAB.ER.24H 450 MG PO (08:45)
[2024-12-24 08:47] VITALS: BP 120/61
[2024-12-24] MEDS: ISONIAZID 300 MG 300 EACH PO (08:48)
[2024-12-24] MEDS: Nicotine 21 MG PATCH.TD24 TRANSDERMA (08:49)
[2024-12-24] MEDS: TESTOSTERONE 50 EACH TOPICAL (08:55)
[2024-12-24] MEDS: Nicotine Polacrilex Lozenge 4 MG LOZENGE BUCCAL ×5 (08:55→21:55)
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
[2024-12-24] MEDS: Milk of Magnesia 30 ML ORAL.SUSP PO (13:28)
[2024-12-24 13:31] VITALS: BP 123/68
[2024-12-24 19:55] VITALS: BP 120/89; PULSE 84; RESP 15; TEMP 36.8; O2SAT 96
[2024-12-25] MEDS: methADONE HCl 20 MG/2 ML ORAL.CONC 105 MG PO (07:56)
[2024-12-25 08:00] VITALS: BP 124/78; PULSE 66; RESP 20; TEMP 36.5; O2SAT 97
[2024-12-25 08:15] VITALS: BP 124/78
[2024-12-25] MEDS: buPROPion HCl XL 150 MG TAB.ER.24H 450 MG PO (08:15)
[2024-12-25] MEDS: Nicotine 21 MG PATCH.TD24 TRANSDERMA (08:17)
[2024-12-25] MEDS: Nicotine Polacrilex Lozenge 4 MG LOZENGE BUCCAL ×4 (08:19→20:28)
[2024-12-25] MEDS: TESTOSTERONE 50 EACH TOPICAL (08:31)
[2024-12-25] MEDS: ISONIAZID 300 MG 300 EACH PO (08:31)
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
[2024-12-25 14:16] VITALS: BP 124/68
[2024-12-25] MEDS: Dry Mouth Spray 60 ML SPRAY 1 SPRAY MUCOUS MEM ×2 (18:24→20:29)
[2024-12-25 19:05] LABS: Appearance Urine Clear; Glucose Urine UA Negative (Negative); PH 7.5 (5.0-9.0); Specific Gravity - Urine 1.010 (1.005-1.025); UMIC TRIGGER UACC YES
[2024-12-25 19:16] LABS: UACC Culture Trigger YES
[2024-12-25 20:00] VITALS: BP 124/78; PULSE 73; RESP 16; TEMP 37.1; O2SAT 97
[2024-12-25 21:31] VITALS: BP 130/76
[2024-12-26] MEDS: methADONE HCl 20 MG/2 ML ORAL.CONC 105 MG PO (07:47)
[2024-12-26 08:00] VITALS: BP 122/65; PULSE 60; RESP 16; TEMP 36.1; O2SAT 98
[2024-12-26] MEDS: buPROPion HCl XL 150 MG TAB.ER.24H 450 MG PO (08:30)
[2024-12-26] MEDS: Nicotine 21 MG PATCH.TD24 TRANSDERMA (08:30)
[2024-12-26] MEDS: ISONIAZID 300 MG 300 EACH PO (08:33)
[2024-12-26] MEDS: Nicotine Polacrilex Lozenge 4 MG LOZENGE BUCCAL ×5 (08:35→21:54)
[2024-12-26] MEDS: TESTOSTERONE 50 EACH TOPICAL (09:03)
[2024-12-26] MEDS: Dry Mouth Spray 60 ML SPRAY 1 SPRAY MUCOUS MEM ×2 (09:32→12:09)
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
[2024-12-26 14:23] VITALS: BP 118/72
--- NOTE | 2024-12-26 16:04 | PC.NURSE ---
[facility] Consult Note: Gurjit was seen on M5 after a [facility] consult was placed by his provider for recovery support. Gurjit was initially approached yesterday, / around dinner time however he was tired and wanted to meet in the morning. Upon approach Gurjit was alert, oriented, cooperative and forthcoming in conversation. Gurjit explained a bit of his recovery, recent relapse and future concerns. Gurjit is feeling stable on methadone and is concerned about fdc with colder months coming up. Gurjit has a graduation coach and mentioned that he previously attended AA online and was interested in connecting with them again; meetings encouraged for support and an updated meeting leslye for current meeting times was shared with him. Gurjit was encouraged to engage in programs to stabilize and advance his recovery. Information for [facility] given as well as a recovery contact on site to assist him with other options. Gurjit was also provided with [facility] clinic information as an outpatient resource if needed including daily walk in care if needed.
[2024-12-26 19:50] VITALS: BP 147/84; PULSE 72; RESP 18; TEMP 36.9; O2SAT 98
[2024-12-26 21:55] VITALS: BP 147/84
[2024-12-27 07:00] VITALS: BMI 34.1
[2024-12-27] MEDS: methADONE HCl 20 MG/2 ML ORAL.CONC 105 MG PO (07:41)
[2024-12-27 08:00] VITALS: BP 117/71; PULSE 78; RESP 18; TEMP 36.4; O2SAT 97
[2024-12-27] MEDS: ISONIAZID 300 MG 300 EACH PO (08:36)
[2024-12-27] MEDS: Nicotine 21 MG PATCH.TD24 TRANSDERMA (08:37)
[2024-12-27] MEDS: buPROPion HCl XL 300 MG TAB.ER.24H PO (08:37)
[2024-12-27] MEDS: Nicotine Polacrilex Lozenge 4 MG LOZENGE BUCCAL ×6 (08:37→21:21)
[2024-12-27] MEDS: Dry Mouth Spray 60 ML SPRAY 1 SPRAY MUCOUS MEM (09:38)
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
[2024-12-27 14:36] VITALS: BP 122/73
[2024-12-27 20:00] VITALS: BP 113/73; PULSE 71; RESP 14; TEMP 36.7; O2SAT 97
[2024-12-27] MEDS: Magnesium Hydrox/Alum Hydrox 30 ML ORAL.SUSP PO (21:16)
[2024-12-28] MEDS: methADONE HCl 20 MG/2 ML ORAL.CONC 105 MG PO (07:53)
[2024-12-28] MEDS: buPROPion HCl XL 300 MG TAB.ER.24H PO (08:00)
[2024-12-28] MEDS: Nicotine Polacrilex Lozenge 4 MG LOZENGE BUCCAL ×6 (08:00→23:05)
[2024-12-28 08:01] VITALS: BP 129/83; PULSE 60; TEMP 36.4; O2SAT 97
[2024-12-28] MEDS: Nicotine 21 MG PATCH.TD24 TRANSDERMA (08:03)
[2024-12-28] MEDS: TESTOSTERONE 50 EACH TOPICAL (08:05)
[2024-12-28] MEDS: ISONIAZID 300 MG 300 EACH PO (08:06)
[2024-12-28 15:55] VITALS: BP 112/62
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
[2024-12-28] MEDS: Dry Mouth Spray 60 ML SPRAY 1 SPRAY MUCOUS MEM (18:23)
[2024-12-28 20:00] VITALS: BP 120/77; PULSE 73; RESP 16; TEMP 36.8; O2SAT 98
[2024-12-29] MEDS: methADONE HCl 20 MG/2 ML ORAL.CONC 105 MG PO (07:52)
[2024-12-29 08:11] VITALS: BP 119/76; PULSE 60; TEMP 36.9; O2SAT 97
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
[2024-12-29] MEDS: TESTOSTERONE 50 EACH TOPICAL (09:00)
[2024-12-29] MEDS: ISONIAZID 300 MG 300 EACH PO (09:00)
[2024-12-29] MEDS: Nicotine Polacrilex Lozenge 4 MG LOZENGE BUCCAL ×4 (09:01→21:16)
[2024-12-29] MEDS: buPROPion HCl XL 300 MG TAB.ER.24H PO (09:01)
[2024-12-29] MEDS: Nicotine 21 MG PATCH.TD24 TRANSDERMA (09:03)
[2024-12-29 14:44] VITALS: BP 127/80
[2024-12-29 20:00] VITALS: BP 116/65; PULSE 73; RESP 16; TEMP 37.2; O2SAT 96
[2024-12-29 21:14] VITALS: BP 120/70
[2024-12-30] MEDS: methADONE HCl 20 MG/2 ML ORAL.CONC 105 MG PO (07:42)
[2024-12-30] MEDS: ISONIAZID 300 MG 300 EACH PO (07:54)
[2024-12-30] MEDS: Sodium Chloride 0.65 % Nasal 44 ML SPRBTL 1 SPRAY NOSTRIL-L (07:54)
[2024-12-30 07:55] VITALS: BP 132/85; BP 132/88; PULSE 61; TEMP 36.6; O2SAT 98
[2024-12-30] MEDS: Nicotine Polacrilex Lozenge 4 MG LOZENGE BUCCAL ×5 (07:55→20:37)
[2024-12-30] MEDS: TESTOSTERONE 50 EACH TOPICAL (07:56)
[2024-12-30] MEDS: Nicotine 21 MG PATCH.TD24 TRANSDERMA (07:56)
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
[2024-12-30 14:07] VITALS: BP 121/70
[2024-12-30 20:00] VITALS: BP 110/74; PULSE 70; RESP 15; TEMP 36.9; O2SAT 97
[2024-12-31] MEDS: methADONE HCl 20 MG/2 ML ORAL.CONC 105 MG PO (07:49)
[2024-12-31 08:00] VITALS: BP 118/71; PULSE 94; RESP 16; TEMP 36.4; O2SAT 93
[2024-12-31] MEDS: buPROPion HCl XL 150 MG TAB.ER.24H PO (09:14)
[2024-12-31] MEDS: Nicotine 21 MG PATCH.TD24 TRANSDERMA (09:15)
[2024-12-31] MEDS: ISONIAZID 300 MG 300 EACH PO (09:15)
[2024-12-31] MEDS: TESTOSTERONE 50 EACH TOPICAL (09:24)
[2024-12-31] MEDS: Nicotine Polacrilex Lozenge 4 MG LOZENGE BUCCAL (09:28)
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
== END 2024-12-31 11:48 | disposition home or self-care (01) | DRG 751 ==
LOC: HO.ED 12-16 14:25 → HO.PM5 12-16 14:32
PROVIDERS: Physician Assistant Medical; Admitting Provider Clinical Nurse Specialist Psychiatric/Mental Health, Adult; Emergency Provider Emergency Medicine; PCP Internal Medicine; Visit Provider Psychiatry & Neurology Psychiatry
DX: F33.2 Major depressive disorder, recurrent severe without psychotic features (principal); R45.851 Suicidal ideations; F11.20 Opioid dependence, uncomplicated; F17.290 Nicotine dependence, other tobacco product, uncomplicated; Z71.6 Tobacco abuse counseling; F19.90 Other psychoactive substance use, unspecified, uncomplicated; F14.10 Cocaine abuse, uncomplicated; Z79.899 Other long term (current) drug therapy
CPT/HCPCS: 36415; 71046; 80053; 80143; 80179; 80307; 81001; 83690; 83735; 85025; 85652; 86140; 87086; 93005; 99285; S9485

== ENCOUNTER → 2024-12-15 15:42 | Outpatient (BNV) | payer MEDICAID, SELFPAY | PROVIDERS: Emergency Provider Emergency Medicine; PCP Internal Medicine; Visit Provider Radiology Diagnostic Radiology | DX: F32.1 Major depressive disorder, single episode, moderate (principal) | CPT/HCPCS: 71046 ==

== ENCOUNTER → 2024-12-16 13:41 | Outpatient (BNV) | payer MEDICAID, SELFPAY | PROVIDERS: Admitting Provider Clinical Nurse Specialist Psychiatric/Mental Health, Adult; Emergency Provider Emergency Medicine; PCP Internal Medicine; Visit Provider Internal Medicine | DX: R00.1 Bradycardia, unspecified (principal) | CPT/HCPCS: 93010 ==

== ENCOUNTER → 2024-12-16 13:56 | Outpatient (BNV) | payer OTHER, SELFPAY | PROVIDERS: Admitting Provider Clinical Nurse Specialist Psychiatric/Mental Health, Adult; Emergency Provider Emergency Medicine; PCP Internal Medicine; Visit Provider Psychiatry & Neurology Psychiatry | DX: F33.2 Major depressive disorder, recurrent severe without psychotic features (principal); F14.10 Cocaine abuse, uncomplicated; F11.90 Opioid use, unspecified, uncomplicated | CPT/HCPCS: 99232 ==

== ENCOUNTER 2025-03-04 18:33 | Inpatient (IN) | payer OTHER, SELFPAY ==
[2025-03-04 18:44] VITALS: BP 108/65; PULSE 61; RESP 16; TEMP 36.1; O2SAT 98; BMI 31.8
--- NOTE | 2025-03-04 18:46 | ED.GENADULT ---
HPI - General Adult General Chief complaint: Psychiatric Symptoms Stated complaint: SI, Hallucinating Time Seen by Provider: 03/04/25 19:10 Source: patient Mode of arrival: ambulatory Limitations: no limitations History of Present Illness ED Provider: Dr. Tracie Petit HPI narrative: Patient comes to the emergency room complaining of visual hallucinations, suicidal ideation. Patient planning to run into oncoming traffic or jump from somewhere high. Patient denies HI. Patient states that he stop using drugs 1 month ago. Patient states that he has been seeing shadows, hearing whispering. This is only for the patient. Related Data Home Medications ?Medication ?Instructions ?Recorded ?Confirmed gabapentin 400 mg capsule 400 mg PO TID 03/04/25 03/04/25 hydroxyzine HCl 25 mg tablet 25 - 50 mg PO TID PRN insomnia 03/04/25 03/04/25 isoniazid 300 mg tablet 300 mg PO DAILY 03/04/25 03/04/25 Allergies Allergy/AdvReac Type Severity Reaction Status Date / Time No Known Allergies (No Known Allergy Verified 03/04/25 18:49 Allergies*) Review of Systems Review of Systems: Constitutional : No Weight loss, No Fever, No Chills, No Night Sweats, No Fatigue, No Malaise ENT/Mouth : No Hearing loss, No Ear Pain, No Nasal Congestion, No Sinus Pain, No Hoarseness, No sore throat, No Rhinorrhea, No Swallowing Difficulty Eyes: No Eye Pain, No Swelling, No Redness, No Foreign Body, No Discharge, No Vision Changes Cardiovascular : No Chest Pain, No SOB, No Dyspnea on Exertion, No Orthopnea, No Edema, No Palpitations Respiratory : No Cough, No Sputum, No Wheezing, No Smoke Exposure, No Dyspnea Gastrointestinal : No Nausea, No Vomiting, No Diarrhea, No Constipation, No abdominal Pain, No Hematochezia, No Melena Genitourinary : no irregular bleeding, No Dysuria, No Urinary Frequency, No Hematuria, No Urinary Incontinence, No Urgency, No Flank Pain, No Urinary Flow Changes, No Hesitancy Musculoskeletal : No joint pain, No Myalgias, No Joint Swelling Skin : No Skin Lesions, No rash Neuro : No Weakness, No Numbness, No Paresthesias, No Loss of Consciousness, No Dizziness, No Headache Psych : Complaining of mild anxiety, mostly depression, SI, auditory and visual hallucinations, no HI Heme/Lymph: No Bruising, No Bleeding,No Lymphadenopathy Endocrine : No Polyuria, No Polydipsia, No Temperature Intolerance PMF Past Medical History Medical History Cocaine use disorder Opioid use disorder MDD (major depressive disorder), recurrent severe, without psychosis Anxiety Depression with suicidal ideation IV drug user No known health problems Social History Social History Household Members: None Housing: Homeless Do you presently have visiting nurse or other home services: No Alcohol intake: current Alcohol intake frequency: does not drink Alcohol type: hard liquor Patient Tobacco Use Status: Current everyday Tobacco user Tobacco use type: Smokeless Tobacco Cigarettes Per Day: 6 Smoked in Last 30 Days: No e-Cigarette/Vaping Use: Currently Using Second Hand Smoke Exposure: No Use of substances other than those prescribed or required for medical reasons: No Substance Use Type: Crack/Cocaine and Heroin Do you have a plan to hurt others: No Plan service: No Current occupational status: employed 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 Oriented X3. No acute distress. Eyes: Pupils equal, round and reactive to light. ENT: Pharynx normal. Neck: Normal inspection. Neck supple. No lymph nodes noted. No crepitus CVS: Normal heart rate and rhythm. Pulses normal. Normal S1 and S2 Respiratory: No respiratory distress. Breath sounds normal. No Wheezing. No rales Abdomen: Soft and nontender. No rigidity. No distention. Skin: Skin warm and dry. Normal skin color. Normal skin turgor. Extremities: No lower extremity edema. No Lacerations. No Rash Neuro: Oriented X 3. No motor deficit. No sensory deficit. Moving all extremities. No slurred speech. CN 2 through 12 grossly intact Psych: calm, cooperative, normal affect Vital Signs: Vital Signs - 24 hr 03/04/25 18:44 03/04/25 19:05 Temperature 97.0 F Pulse Rate 61 Respiratory Rate 16 14 Blood Pressure 108/65 Pulse Oximetry 98 Oxygen Delivery Method Room Air BMI result Body Mass Index 31.8 Course Course Course Narrative: Rapid medical examination performed in triage by Ysabel Benavides PA-C: Patient is a 46 year old assigned male at presenting to the emergency department with auditory hallucinations and suicidal ideation. Detailed physical exam and review of systems are deferred to the billing clinician. tie layer made aware of patient. Medications Administered Generic Name Dose Route Start Last Admin Trade Name Selina PRN Reason Stop Dose Admin Gabapentin 400 mg 03/04/25 21:00 03/04/25 20:38 Gabapentin 400 Mg Capsule PO 400 mg TID RHEA Administration Medical Decision Making Medical Decision Making [facility] Narrative: My interpretation of labs: Patient's hematology does not show any significant acute abnormalities, chemistry within normal limits, LFTs slightly bumped in the low 40s. Salicylate, acetaminophen negative. ETOH negative. Urine toxicology pending. Patient is on a section 12 Care team evaluated the patient, recommends inpatient level of care. Physician observation started at 22:00 Differential Diagnosis Differential Diagnoses: The differential diagnosis associated with the presentation includes (Anxiety, depression, polysubstance abuse, schizophrenia) Admission/Observation Consideration of admission/observation: Escalation of care including admission/observation considered (Patient needs inpatient level of care) Lab Data [facility] Lab Attestation statement: I reviewed the patient's lab results. 03/04/25 19:48 03/04/25 19:48 Labs: Lab Results 03/04/25 Range/Units 19:48 WBC 7.5 (4.8-10.8) X10*3/uL RBC 5.00 (4.60-5.80) X10*6/uL Hgb 13.9 L (14.0-18.0) g/dl Hct 40.9 L (42.0-52.0) % MCV 81.8 (80.0-98.0) fL MCH 27.8 (27.0-33.0) pg MCHC 34.0 (31.0-36.0) g/dl RDW 13.3 (11.0-16.0) % Plt Count 379 (160-400) X10*3/uL MPV 10.1 (9.4-12.4) fL Immature Gran % (Auto) 0.1 (0.0-0.4) % Neut % (Auto) 62.1 (45-73) % Lymph % (Auto) 27.9 (20-40) % [place] % (Auto) 7.2 (2-11) % Eos % (Auto) 2.0 (0-4) % Baso % (Auto) 0.7 (0-2) % Lymph # (Auto) 2.1 (1.2-4.9) X10*3/uL [place] # (Auto) 0.5 (0.1-1.2) X10*3/uL Eos # (Auto) 0.2 (0.0-0.4) X10*3/uL Baso # (Auto) 0.1 (0.0-0.2) X10*3/uL Abs Immat Gran (auto) 0.01 (0.00-0.03) X10*3/uL Absolute Neuts (auto) 4.7 (2.0-8.3) x10*3/uL Absolute Nucleated RBC 0.000 (0.0-0.012) X10*3/uL Nucleated RBC % (auto) 0.0 (0.0-0.2) /100WBC Sodium 141 (135-145) mmol/L Potassium 3.8 (3.3-5.1) mmol/L Chloride 105 (96-108) mmol/L Carbon Dioxide 25 (22-29) mmol/L Anion Gap 15 (12-20) BUN 13 (9-16) mg/dL Creatinine 1.15 (0.5-1.4) mg/dL Estim Creat Clear Calc 94.4 Estimated GFR > 60 Random Glucose 103 (60-115) mg/dL Calcium 9.3 (8.4-10.2) mg/dL Total Bilirubin 0.7 (0.0-1.0) mg/dL AST 40 H (5-37) U/L ALT 44 H (0-40) U/L Alkaline Phosphatase 117 (39-117) U/L Total Protein 7.1 (6.5-8.0) g/dL Albumin 4.5 (3.5-5.0) g/dL Salicylates < 5.0 L (15-30) mg/dL Acetaminophen < 3 (<30) mcg/mL Ethyl Alcohol < 10 mg/dL Critical Care Time Critical Care Time Critical Care Time: Yes Total Critical Care Time: 35 Attestation: I have personally provided critical care time. Time includes review of lab data, radiology results, discussion with consultants, and monitoring for potential decompensation. Intervention performed as documented. Discharge Plan Discharge Clinical Impression: Suicidal ideation, Depression, Hallucinations Prescriptions: No Action gabapentin 400 mg capsule 400 mg PO TID isoniazid 300 mg tablet 300 mg PO DAILY hydroxyzine HCl 25 mg tablet 25 - 50 mg PO TID PRN (Reason: insomnia) Interventions: [place]-Suicide Risk Severity Scale Last Done: 03/04/25 19:05 Print Language: Azerbaijani
[2025-03-04 19:05] VITALS: RESP 14
--- NOTE | 2025-03-04 19:10 | PC.NURSE ---
Patient presents to the ed today reporting increasing audio/visual hallucinations as well as suicidal thoughts with a plan to walk into traffic or jump off a high surface. Pt is reporting audio hallucinations of voices yelling as well as visual hallucinations of seeing shadows. Pt is calm and cooperative, help seeking at this time. Pt reports compliance with medications as well
[2025-03-04 19:54] LABS: MANUAL DIFF FLAG NO
--- NOTE | 2025-03-04 20:06 | PHA.MEDREC ---
Pharmacy Consult ? Medication Reconciliation Pharmacy has completed the medication reconciliation. Reviewed med rec completed by nursing
[2025-03-04 20:10] LABS: Acetaminophen LAB < 3 mcg/mL (<30); Salicylate < 5.0 mg/dL (15-30)
[2025-03-04 20:11] LABS: Alanine Aminotransferase 44 U/L (0-40); Albumin Level 4.5 g/dL (3.5-5.0); Alkaline Phosphatase 117 U/L (39-117); Anion Gap 15 (12-20); Aspartate Amino Transferase 40 U/L (5-37); Blood Urea Nitrogen 13 mg/dL (9-16); Calcium 9.3 mg/dL (8.4-10.2); Carbon Dioxide 25 mmol/L (22-29); Chloride 105 mmol/L (96-108); Creatinine Clr Calc Pharmacy 94.4; Estimated Glomerular Filt Rate > 60; Potassium 3.8 mmol/L (3.3-5.1); Sodium 141 mmol/L (135-145); Total Protein 7.1 g/dL (6.5-8.0)
[2025-03-04 20:17] LABS: Hematocrit 40.9 % (42.0-52.0); Hemoglobin 13.9 g/dl (14.0-18.0); Imm Gran Abs Auto 0.01 X10*3/uL (0.00-0.03); Imm Gran Pct Auto 0.1 % (0.0-0.4); Lymphocytes Absolute Auto 2.1 X10*3/uL (1.2-4.9); Mean Corpuscular HGB Conc 34.0 g/dl (31.0-36.0); Mean Corpuscular Hemoglobin 27.8 pg (27.0-33.0); Mean Corpuscular Volume 81.8 fL (80.0-98.0); NRBC Abs Auto 0.000 X10*3/uL (0.0-0.012); NRBC Pct Auto 0.0 /100WBC (0.0-0.2); Platelet Count 379 X10*3/uL (160-400); Red Blood Count 5.00 X10*6/uL (4.60-5.80); White Blood Count 7.5 X10*3/uL (4.8-10.8)
[2025-03-04 22:00] VITALS: RESP 14
--- OUTSIDE RECORDS SUMMARY | 2025-03-04 22:15 | XMS_ITS | Clinical Summary ---
Author Organization [address] Address [address] [place] [address] Phone Care Team Providers Care Textile Supervisor Name Role Phone Satish Lundberg MD Primary Care Provider [phone] Allergies No known active allergies Social History Tobacco Use Types Packs/Day Years Used Date Smoking Tobacco: Never Assessed Sex and Gender Information Value Date Recorded Sex Assigned at Not on file Legal Sex Male 9:08 PM EST Gender Identity Not on file Sexual Orientation Not on file Last Filed Vital Signs Vital Sign Reading Time Taken Comments Blood Pressure 121/73 10/28/2024 8:17 PM EDT Pulse 65 10/28/2024 8:17 PM EDT Temperature 36.6 C (97.8 F) 10/28/2024 8:17 PM EDT Respiratory Rate 18 10/28/2024 8:17 PM EDT Oxygen Saturation 99% 10/28/2024 8:17 PM EDT Inhaled Oxygen Concentration - - Weight - - Height - - Body Mass Index - - Plan of Treatment Health Maintenance Due Date Last Done Comments Hepatitis A Vaccines (1 of 2 - Risk 2-dose series) 07/23/1999 Hepatitis B Vaccines (1 of 3 - 19+ 3-dose series) 07/23/1999 HPV Vaccines (1 - 3-dose SCD M series) 07/23/2007 Cholesterol Screening (Lipid Panel) 05/20/2023 Social Influencers of Health Screening 05/20/2023 Depression Screening 04/25/2024 COVID-19 Vaccine ( - 2023-2 5 season) 2024 Influenza Vaccine (#1) 2024 05/15/2024 DTaP,Tdap,and Td Vaccines (2 - Td or Tdap) 05/15/2034 05/15/2024 RSV Immunization Adult Patie nts (1 - 1-dose 75+ series) 07/23/2055 HIV Screening Completed 05/29/2024 Hepatitis C Screening Completed 05/29/2024 Pneumococcal Vaccine: Pediat rics (0 to 5 Years) and At-Risk Patients (6 to 49 Years) Aged Out 10/09/2024 No longer eligi ble based on patient's age to complete this topic HIB Vaccines Aged Out No longer eligi ble based on patient's age to complete this topic IPV Vaccines Aged Out No longer eligi ble based on patient's age to complete this topic MMR Vaccines Aged Out No longer eligi ble based on patient's age to complete this topic Meningococcal ACWY Vaccine Aged Out N o longer eligible based on patient's age to complete this topic Meningococcal B Vaccine Aged Out No l onger eligible based on patient's age to complete this topic RSV Immunization Patients Un jamin 20 months Aged Out No longer eligible b ased on patient's age to complete this topic Varicella Vaccines Aged Out No longer eligible based on patient's age to complete this topic Procedures Procedure Name Priority Date/Time Associated Diagnosis Comments HEPATITIS C VIRUS QUANTITATIVE PCR Routine 05/29/2024 1:15 PM EST Opioid type dependence, continuous (CMS/HCC V24, CMS/HCC V28) HIV 1, 2 ANTIBODY, P24 ANTIGEN WITH REFLEX TO DIFFERENTIATION Routine 05/29/2024 1:15 PM EST Opioid type dependence, continuous (CMS/HCC V24, CMS/HCC V28) from Last 3 Months or Most Recently Relevant to Health Maintenance Results * HIV 1,2 antibody, p24 antigen with reflex to differentiation (05/29/2024 1:15 PM EST) HIV Combo AB/AG Negative Negative LAB CHEMISTRY METHOD 05/29/2024 3:02 PM EST [facility] Blood Venous blood specimen / Unknown Venipuncture / Unknown 05/29/2024 1:15 PM EST 05/29/2024 1:38 PM EST Narrative [facility] - 05/29/2024 3:02 PM EST This assay is a 4th generation assay allowing for earlier detection of HIV infection by detecting the presence of the HIV-1 p24 antigen as well as the traditional antibodies to HIV type 1 (including group O) and type 2. Use of a 4th generation assay is the current CDC recommendation for HIV screening. Samanta Calderon MD LAB BLOOD ORDERABLES Fi nal Result Performing Organization Address [facility]/ZIP Co de Phone Number [facility] [address] [place] [address], [place] [phone] * Hepatitis C virus quantitative molecular study (05/29/2024 1:15 PM EST) HCV Qual Interp Not Detected Not Detected LAB MOLECULAR DIAGNOSTICS METHOD 05/29/2024 4:29 PM EST [facility] Comment:HCV RNA not detected , unable to report quantitative results. Blood Venous blood specimen / Unknown Venipuncture / Unknown 05/29/2024 1:15 PM EST 05/29/2024 1:37 PM EST Samanta Calderon MD LAB BLOOD ORDERABLES Fi nal Result Performing Organization Address [facility] de Phone Number [facility] [address] [place] [address], [place] [phone] from Last 3 Months or Most Recently Relevant to Health Maintenance [place] Care Teams Textile Supervisor Relationship Specialty Start Date End Date Satish Lundberg MD [address] [place] [address] [place] PCP - General Internal Medicine 10/28/24
--- OUTSIDE RECORDS SUMMARY | 2025-03-04 22:15 | XMS_ITS | Encounter Summary ---
Author Organization [employer] Address [address] [place] [address] Care Team Providers Care Jig Filler Name Role Phone Satish Lundberg MD Primary Care Provider Encounter Details Date Type Department Care Team (Late st Contact Info) Description 05/18/2024 Lab Requisition [facility] - Main Lab [address] [facility] [place] [address] Satish Lundberg MD [address] [place], [place] Male erectile disorder (CODE) Social History Tobacco Use Types Packs/Day Years Used Date Smoking Tobacco: Never Assessed Sex and Gender Information Value Date Recorded Sex Assigned at Not on file Legal Sex Male 9:08 PM EST Gender Identity Not on file Sexual Orientation Not on file documented as of this encounter Plan of Treatment Not on file documented as of this encounter Procedures Procedure Name Priority Date/Time Associated Diagnosis Comments THYROID STIMULATING HORMONE WITH REFLEX TO FREE T4 AND FREE T3 Routine 05/18/2024 8:52 AM EST Male erectile disorder (CODE) SST - GOLD Routine 05/18/2024 8:52 AM EST Male erectile disorder (CODE) PROLACTIN Routine 05/18/2024 8:52 AM EST Male erectile disorder (CODE) TESTOSTERONE, TOTAL Routine 05/18/2024 8 :52 AM EST Male erectile disorder (CODE) HEPATIC FUNCTION PANEL Routine 05/18/2024 8:52 AM EST Male erectile disorder (CODE) documented in this encounter Results * SST tube (05/18/2024 8:52 AM EST) Pathologist [facility] Extra Tube Hold for add-ons. 05/18/2024 7:01 PM [facility] Comment:Auto resulted. Blood Venous blood specimen / Unknown 05/18/2024 8:52 AM EST 05/18/2024 5:02 PM EST us Satish Lundberg MD LAB BLOOD ORDERABLES Final Re sult [facility] [address] [place] [address], [place] [phone] * (ABNORMAL) Hepatic function panel (05/18/2024 8:52 AM EST) [facility] Total Protein 7.1 6.0 - 8.0 g/dL LAB CHEMISTRY METHOD 05/18/2024 8:05 PM [facility] Albumin 3.7 3.2 - 5.0 g/dL LAB CHEMISTRY METHOD 05/18/2024 8:05 PM [facility] Total Bilirubin 0.3 0.0 - 1.4 mg/dL LAB CHEMISTRY METHOD 05/18/2024 8:05 PM [facility] Bilirubin, Direct <0.1 0.0 - 0.3 mg/dL LAB CHEMISTRY METHOD 05/18/2024 8:05 PM [facility] Bilirubin, Indirect LAB CHEMISTRY METHOD 05/18/2024 8:05 PM [facility] Comment:Unable to calculate Indirect Bilirubin. ALT (SGPT) 30 10 - 60 unit/L LAB CHEMISTRY METHOD 05/18/2024 8:05 PM [facility] AST (SGOT) 34 10 - 42 unit/L LAB CHEMISTRY METHOD 05/18/2024 8:05 PM [facility] Alkaline Phosphatase 142(H) 42 - 121 unit/L LAB CHEMISTRY METHOD 05/18/2024 8:05 PM EST [facility] Blood Venous blood specimen / Unknown 05/18/2024 8:52 AM EST 05/18/2024 5:02 PM EST Satish Lundberg MD LAB BLOOD ORDERABLES Final Re sult Performing Organization Address [facility]/ZIP Co de Phone Number [facility] [address] [place] [address], [place] [phone] * (ABNORMAL) Testosterone, total (05/18/2024 8:52 AM EST) Testosterone 47(L) 229 - 902 ng/dL LAB CHEMISTRY METHOD 05/18/2024 8:08 PM EST [facility] Blood Venous blood specimen / Unknown 05/18/2024 8:52 AM EST 05/18/2024 5:02 PM EST Satish Lundberg MD LAB BLOOD ORDERABLES Final Re sult Performing Organization Address [facility] Co de Phone Number [facility] [address] [place] [address], [place] [phone] * Thyroid stimulating hormone with reflex to free t4 and free t3 (05/18/2024 8:52 AM EST) TSH 2.27 0.40 - 4.00 mcIU/mL LAB CHEMISTRY METHOD 05/18/2024 8:07 PM EST [facility] Blood Venous blood specimen / Unknown 05/18/2024 8:52 AM EST 05/18/2024 5:02 PM EST us Satish Lundberg MD LAB BLOOD ORDERABLES Final Re sult Performing Organization Address [facility]/ZIP Co de Phone Number [facility] [address] [place] [address], [place] [phone] * Prolactin (05/18/2024 8:52 AM EST) Prolactin 9.70 2.50 - 17.40 ng/mL LAB CHEMISTRY METHOD 05/18/2024 8:05 PM EST [facility] Blood Venous blood specimen / Unknown 05/18/2024 8:52 AM EST 05/18/2024 5:02 PM EST us Satish Lundberg MD LAB BLOOD ORDERABLES Final Re sult [facility] [address] [place] [address], documented in this encounter Visit Diagnoses Diagnosis Male erectile disorder (CODE) documented in this encounter Care Teams Jig Filler Relationship Specialty Start Date End Date Satish Lundberg MD [address] [place] [address] PCP - General Internal Medicine 10/28/24 documented as of this encounter
--- OUTSIDE RECORDS SUMMARY | 2025-03-04 22:15 | XMS_ITS | Encounter Summary ---
Author Organization [employer] Address [address] [place] [address] Care Team Providers Care Rug Underlay Machine Operator Name Role Phone Satish Lundberg MD Primary Care Provider [phone] Encounter Details Date Type Department Care Team (Late st Contact Info) Description 06/22/2024 Lab Requisition [facility] - Main Lab [address] [facility] [address] Samanta Calderon MD [address] [place] [address] Opioid dependence, uncomplicated (CMS/[facility] V24, CMS/[facility] V28) Social History Tobacco Use Types Packs/Day Years [...] Procedure Name Priority Date/Time Associated Diagnosis Comments CHLAMYDIA TRACHOMATIS AND NEISSERIA GONORRHOEAE PCR Routine 06/22/2024 8:20 AM EST Opioid dependence, uncomplicated (CMS/[facility]) documented in this encounter Results * Chlamydia trachomatis and Neisseria gonorrhoeae molecular study (06/22/2024 8:20 AM EST) Neisseria gonorrhoeae PCR Negative Negative LAB MOLECULAR DIAGNOSTICS METHOD 06/22/2024 3:47 PM EST [facility] Chlamydia trachomatis PCR Negative Negative LAB MOLECULAR DIAGNOSTICS METHOD 06/22/2024 3:47 PM EST [facility] Urine 06/22/2024 8:20 AM EST 06/22/2024 1:11 PM EST us Samanta Calderon MD LAB MICROBIOLOGY - GENE RAL ORDERABLES Final Result [facility] [address] [place] [address], documented in this encounter Visit Diagnoses Diagnosis Opioid dependence, uncomplicated (CMS/HCC V24, CMS/HCC V28) documented in this encounter Care Teams Rug Underlay Machine Operator Relationship Specialty Start Date End Date Satish Lundberg MD [address] [place] [address] PCP - General Internal Medicine 10/28/24 documented as of this encounter
--- NOTE | 2025-03-04 22:39 | PC.NURSE ---
Patient appears to be sleeping, respirations even and unlabored, no apparent distress is noted at this time
[2025-03-05 06:43] VITALS: BP 123/78; PULSE 55; RESP 15; TEMP 36.5; O2SAT 98
--- NOTE | 2025-03-05 07:31 | PC.NURSE ---
Assumed care, report received. Pt is awake, eating breakfast and watching TV. Urine spec. is pending, pt is aware.
[2025-03-05 08:41] LABS: Appearance Urine Clear; Glucose Urine UA Negative (Negative); PH 6.0 (5.0-9.0); Specific Gravity - Urine >= 1.030 (1.005-1.025); UMIC TRIGGER UA YES
[2025-03-05 08:49] LABS: Cannabinoid Screen Urine Not Detected (Not Detect)
--- NOTE | 2025-03-05 08:59 | HE.PHANOTE ---
METHADONE Dose: 105mg, last dosed 03/04/25 @0800 at [facility] .
--- NOTE | 2025-03-05 09:00 | ECG_ITS ---
Test Reason : prolong qtc Blood Pressure : */* mmHG Vent. Rate : 55 BPM Atrial Rate : 55 BPM P-R Int : 120 ms QRS Dur : 84 ms QT Int : 478 ms P-R-T Axes : 42 24 40 degrees QTcB Int : 457 ms Sinus bradycardia Otherwise normal ECG When compared with ECG of 16-Dec-2024 14:32, QT has shortened Referred By: Tracie Petit Electronically Signed By: ASHLEIGH KNIGHT MD
[2025-03-05] MEDS: methADONE HCl 20 MG/2 ML ORAL.CONC 105 MG PO (11:48)
[2025-03-05 14:34] VITALS: BP 130/69; PULSE 90; RESP 18; TEMP 36.3; O2SAT 99
[2025-03-05 14:35] VITALS: BMI 29.9
--- NOTE | 2025-03-05 15:32 | PC.NURSE ---
Pt declined flu vaccine, reports he is already immunized this season
--- NOTE | 2025-03-05 16:14 | PC.ADMIT ---
Gurjit is a 44-year-old male admitted from [facility] to [facility] on 03/05/25 1424 on a CV for treatment of depression and unspecified psychosis. Tox screen positive for opiates, methadone, fentanyl and cocaine. Pt reports being sober but recently relapsed prior to admission because ?everything has just been really bad the past 2 weeks.? Pt reports last use of heroin was 2-3 days ago. Pt is currently homeless. Pt was BIBA secondary to endorsing SI with s plan to walk into traffic or jump off a high surface. Pt endorsed AH of ?screaming? and VH of shadows. Upon arrival to , pt was A&Ox4, pleasant and cooperative. Thought process linear and organized. Pt was guarded and at times only provided one-word responses. Pt maintained appropriate eye contact. Skin check unremarkable. Pt reports right leg pain s/p a fall prior to admission but ?I don?t remember what happened.? Pt denies medical issues however reported a 20 lb weight loss in 1 month due to decreased appetite. Pt asked if he could be referred to a substance use program after discharge. Pt placed on 15 minute safety checks.
--- NOTE | 2025-03-05 16:14 | HO.PSYADMNOT ---
[facility] Date of Service: 03/05/25 Chief Complaint: crisis Sources of Information: patient interviewed, chart reviewed and crisis/core team assessment reviewed HPI Subjective Notes: Todd Warning and Conditional Voluntary Narrative: Patient is a 44-year-old male with history of MDD, opiate use disorder and cocaine use disorder who presented to ER via ambulance due to suicidal ideation with a plan to walk into traffic or jump off a high surface secondary to increased depression. Per crisis report, patient reports auditory and visual hallucinations of people yelling and seeing shadows. He reports not being able to sleep secondary to his symptoms. Patient reports the symptoms started a few days ago. Patient denies HI. He reports poor appetite. History of 1 prior inpatient psychiatric hospitalization. Patient reports command auditory hallucinations telling him to harm himself and states that this is not typical for him. Patient reports when he is under the influence of drugs he will punch himself and yell. History of detox admissions. He reports cocaine and heroin use. Utox positive for opiates, methadone, fentanyl, cocaine. During admission assessment, patient presents alert and oriented x3. Calm and cooperative. Patient reports feeling depressed ; patient stated, everything seems to be going wrong. I tried to get a job or an apartment and it seems to fail so what's the point . Patient reports suicidal ideation with no plan. He reports auditory hallucinations of screaming and visual hallucinations of shadows . Patient denies HI. He reports that he stopped taking his medications 2 weeks ago . Patient reports he would like to be on the same medication regimen he was taking when last hospitalized. Patient reports goal for admission is to be referred to a substance abuse program. Past Psychiatric History: History of 1 prior inpatient psychiatric hospitalization. (11/2024) Prescriber: Kaley Dumont Does not have outpatient therapist. Medical Evaluation Reviewed: Yes [facility] Medical History Cocaine use disorder Opioid use disorder MDD (major depressive disorder), recurrent severe, without psychosis Anxiety Depression with suicidal ideation IV drug user No known health problems Family History: unknown Social History: Homeless. single. 3 kids who live in [place] with their mother. unemployed. GED. Substance History: Patient reports using a gram of cocaine and heroin daily. Trauma History: denies Diagnostics Vital Signs (24Hr): Vital Signs - 24 hr 03/04/25 18:44 03/04/25 19:05 03/04/25 22:00 Temperature 97.0 F Pulse Rate 61 Respiratory Rate 16 14 14 Blood Pressure 108/65 Pulse Oximetry 98 Oxygen Delivery Method Room Air 03/05/25 06:43 03/05/25 14:34 Temperature 97.7 F 97.4 F Pulse Rate 55 90 Respiratory Rate 15 18 Blood Pressure 123/78 130/69 Pulse Oximetry 98 99 Oxygen Delivery Method Room Air Room Air BMI result Body Mass Index 29.9 Labs 03/04/25 19:48 03/04/25 19:48 Labs: Laboratory Results - last 48 hr 03/04/25 03/05/25 19:48 08:30 WBC 7.5 RBC 5.00 Hgb 13.9 L Hct 40.9 L MCV 81.8 MCH 27.8 MCHC 34.0 RDW 13.3 Plt Count 379 MPV 10.1 Immature Gran % (Auto) 0.1 Neut % (Auto) 62.1 Lymph % (Auto) 27.9 Forrest % (Auto) 7.2 Eos % (Auto) 2.0 Baso % (Auto) 0.7 Lymph # (Auto) 2.1 Forrest # (Auto) 0.5 Eos # (Auto) 0.2 Baso # (Auto) 0.1 Abs Immat Gran (auto) 0.01 Absolute Neuts (auto) 4.7 Absolute Nucleated RBC 0.000 Nucleated RBC % (auto) 0.0 Sodium 141 Potassium 3.8 Chloride 105 Carbon Dioxide 25 Anion Gap 15 BUN 13 Creatinine 1.15 Estim Creat Clear Calc 94.4 Estimated GFR > 60 Random Glucose 103 Calcium 9.3 Total Bilirubin 0.7 AST 40 H ALT 44 H Alkaline Phosphatase 117 Total Protein 7.1 Albumin 4.5 Urine Color Dark Yellow Urine Appearance Clear Urine pH 6.0 Ur Specific [place] >= 1.030 H Urine Protein 30 (1+) H Urine Glucose (UA) Negative Urine Ketones 40 Urine Blood Negative Urine Nitrite Negative Ur Leukocyte Esterase Trace H Urine RBC 0-2 Urine WBC 0-5 Ur Squamous Epith Cells 0-2 Urine Bacteria None Seen Hyaline Casts 6-10 Salicylates < 5.0 L Urine Opiates Screen POSITIVE H Ur Buprenorphine Scrn Not Detected Ur Oxycodone Screen Not Detected Urine Methadone Screen Positive H Urine Fentanyl Screen POSITIVE H Acetaminophen < 3 Ur Barbiturates Screen Not Detected Ur Phencyclidine Scrn Not Detected Ur Amphetamines Screen Not Detected U Benzodiazepines Scrn Not Detected Urine Cocaine Screen POSITIVE H U Marijuana (THC) Screen Not Detected Ethyl Alcohol < 10 Meds/Allergies Meds Home Medications ?Medication ?Instructions ?Recorded ?Confirmed ?Type gabapentin 400 mg capsule 400 mg PO TID 03/04/25 03/04/25 History hydroxyzine HCl 25 mg tablet 25 - 50 mg PO TID PRN insomnia 03/04/25 03/04/25 History isoniazid 300 mg tablet 300 mg PO DAILY 03/04/25 03/04/25 History methadone 10 mg/mL oral concentrate 105 mg PO DAILY 03/05/25 03/05/25 History Allergies Allergies Allergy/AdvReac Type Severity Reaction Status Date / Time No Known Allergies (No Known Allergy Verified 03/04/25 18:49 Allergies*) Mental Status Exam Mental Status Exam Patient Appearance: Appropriate Patient Orientation: Person, Place, Time and Situation Level of Consciousness: Awake and Alert Patient Behavior: Appropriate, Cooperative and Good Eye Contact Mood Description: Depressed Affect Description: Depressed Ability to Follow Directions: Good Speech Pattern: Clear and Soft-Spoken Memory Description: Intact Hallucinations: Auditory and Visual Delusions: Not Present Thought Process: Intact and Goal Oriented Thought Content: positive for Intact Assessment & Plan Assessment & Plan (1) MDD (major depressive disorder), recurrent severe, without psychosis: Status: Acute Code(s): F33.2 - Major depressive disorder, recurrent severe without psychotic features (2) Opioid use disorder: Status: Acute Code(s): F11.90 - Opioid use, unspecified, uncomplicated (3) Cocaine use disorder: Status: Acute Code(s): F14.10 - Cocaine abuse, uncomplicated Plan Patient is a 44-year-old male with history of MDD, opiate use disorder and cocaine use disorder who presented to ER via ambulance due to suicidal ideation with a plan to walk into traffic or jump off a high surface secondary to increased depression. Plan: CV 15 minute safety checks Continue home medications Start: clonidine 0.1mg PO TID Remeron 15mg PO bedtime Zofran 8mg PO Q12HR PRN nausea Zyprexa 5mg PO Q4HR PRN agitation/hallucinations encourage groups referral to substance abuse program discharge planning Patient educated on: diagnosis and medication risk/benefits Reason for continued inpatient stay Substantial Risk for: harm to self and med/psych decompensation Statement Statement: I have reviewed the history and physical and performed a pertinent examination on my patient. No changes have occurred unless specified. If the History and Physical was not performed prior to admission, the Hospitalist's service will be consulted for completing the admission physical. Time Spent With Patient Time: Total time managing care of this patient today _60___ minutes.
[2025-03-05 16:51] VITALS: BP 134/97
[2025-03-05 20:00] VITALS: BP 112/65; PULSE 66; RESP 15; TEMP 36.2; O2SAT 96
[2025-03-06 07:44] VITALS: BP 106/82; PULSE 46; RESP 16; TEMP 36.6; O2SAT 97
[2025-03-06] MEDS: methADONE HCl 20 MG/2 ML ORAL.CONC 105 MG PO (07:58)
[2025-03-06] MEDS: Nicotine 21 MG PATCH.TD24 TRANSDERMA (08:43)
--- NOTE | 2025-03-06 09:21 | P.CONHOSP_ITS ---
History of Present Illness Data of Consult Service Date: 03/06/25 Primary Care Provider: Satish Lundberg MD [facility] Reason for consult: Medical H&P 44-year-old male with past medical history of major depressive disorder, anxiety history of treated hep C, history of treated TB, opioid use disorder on methadone, cocaine use disorder, presents to the ED with visual hallucinations and suicidal ideation. Initial ED workup demonstrated no significant abnormalities in his CBC, chemistry panel within normal limits, LFTs slightly increased, salicylate and acetaminophen negative, EtOH negative, urine without evidence of infection. U tox positive for opiates, methadone, fentanyl, and cocaine. On exam patient has no medical concerns except constipation. Reports not moving his bowels for 1 week, mild nausea, no loss of appetite, no diarrhea, no vomiting. Review of Systems 2 Review of Systems: Denies any shortness of breath, chest pain, headaches, dysuria, abdominal pain or discomfort, nausea, vomiting or diarrhea. Denies fever or chills. [facility] Medical History Cocaine use disorder Opioid use disorder MDD (major depressive disorder), recurrent severe, without psychosis Anxiety Depression with suicidal ideation IV drug user No known health problems Social History Household Members: None Housing: Homeless Do you presently have visiting nurse or other home services: No Alcohol intake: current Alcohol intake frequency: does not drink Alcohol type: hard liquor Patient Tobacco Use Status: Never used Tobacco Tobacco use type: Smokeless Tobacco Cigarettes Per Day: 6 Smoked in Last 30 Days: No e-Cigarette/Vaping Use: Currently Using Second Hand Smoke Exposure: No Use of substances other than those prescribed or required for medical reasons: No Substance Use Type: Crack/Cocaine and Heroin Currently Displaying Signs/Symptoms of Drug Intoxication Withdrawal: No Have you been hit, kicked, punched, or otherwise hurt by someone within the past year? If so, by whom?: No Do you feel safe in your current relationship?: Yes Is there a partner from a previous relationship who is making you feel unsafe now?: No Are you made to feel afraid or neglected: No Advance Directives: No Advance Directives Information Provided: No Do you have thoughts of harming others: None Do you have a plan to hurt others: No Plan Recently lost weight without trying: Yes How much weight loss: 14-23 pounds Eating poorly because of decreased appetite: Yes Nutrition screen score: 5 Nutrition Risks: No Nutritional Risk Poor oral hygiene: No service: No Current occupational status: employed 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 Sexual orientation: Straight/Heterosexual Meds Allergies Allergy/AdvReac Type Severity Reaction Status Date / Time No Known Allergies (No Known Allergy Verified 03/04/25 18:49 Allergies*) Active Medications: Current Medications Acetaminophen (Acetaminophen 325 Mg Tablet) 650 mg PO Q6H PRN PRN Reason: Headache/Pain, Scale 1-10 Last Admin: 03/05/25 16:11 Dose: 650 mg Al Hydroxide/Mg Hydroxide (Magnesium Hydrox/Alum Hydrox 30 Ml Oral.Susp) 30 ml PO Q6H PRN PRN Reason: Heartburn/Nausea Clonidine HCl (Clonidine Hcl 0.1 Mg Tablet) 0.1 mg PO TID [facility]; Protocol Last Admin: 03/06/25 08:43 Dose: 0.1 mg Dicyclomine HCl (Dicyclomine Hcl 10 Mg Capsule) 10 mg PO TIDAC PRN PRN Reason: stomach cramps Last Admin: 03/05/25 17:40 Dose: 10 mg Gabapentin (Gabapentin 400 Mg Capsule) 400 mg PO TID [facility] Last Admin: 03/06/25 08:42 Dose: 400 mg Hydroxyzine HCl (Hydroxyzine Hcl 25 Mg Tablet) 25 mg PO Q6H PRN PRN Reason: mild anxiety Last Admin: 03/06/25 09:00 Dose: 25 mg Ibuprofen (Ibuprofen 600 Mg Tablet) 600 mg PO Q6H PRN PRN Reason: Pain, Moderate(Pain Scale 4-6) Magnesium Hydroxide (Milk Of Magnesia 30 Ml Oral.Susp) 30 ml PO DAILY PRN PRN Reason: Constipation Methadone HCl (Methadone Hcl 20 Mg/2 Ml Oral.Conc) 105 mg PO DAILY [facility] Last Admin: 03/06/25 07:58 Dose: 105 mg Mirtazapine (Mirtazapine 15 Mg Tablet) 15 mg PO BEDTIME [facility] Last Admin: 03/05/25 20:34 Dose: 15 mg Nicotine (Nicotine 21 Mg Patch.Td24) 21 mg TRANSDERMA DAILY [facility] Last Admin: 03/06/25 08:43 Dose: 21 mg Nicotine Polacrilex (Nicotine Polacrilex 2 Mg Gum) 4 mg BUCCAL Q2H PRN PRN Reason: Nicotine Cravings Non-Formulary Medication (Isoniazid) 300 mg PO DAILY [facility] Olanzapine (Olanzapine 5 Mg Tablet) 5 mg PO Q4H PRN PRN Reason: agitation/hallucinations Last Admin: 03/05/25 17:40 Dose: 5 mg Ondansetron HCl (Ondansetron Odt 8 Mg Tab.Rapdis) 8 mg TRANSLINGU Q12H PRN PRN Reason: Nausea and Vomiting Trazodone HCl (Trazodone Hcl 50 Mg Tablet) 50 mg PO BEDTIME MRX1 PRN PRN Reason: Insomnia Home Medications ?Medication ?Instructions ?Recorded ?Confirmed ?Last Taken ?Type gabapentin 400 mg capsule 400 mg PO TID 03/04/2503/0403/03/25 History hydroxyzine HCl 25 mg tablet 25 - 50 mg PO TID PRN ins omnia 03/04/25 03/04/25 03/03/25 History isoniazid 300 mg tablet 300 mg PO DAILY 03/04/2502/1603/03/25 History methadone 10 mg/mL oral concentrate 105 mg PO DAILY 03/05/25 03/04/25 08:00 History Physical Exam 2 Vital Signs and Narrative: Vital Signs: Last Vital Signs Temp 97.9 F 03/06/25 07:44 Pulse 46 L 03/06/25 07:44 Resp 16 03/06/25 07:44 BP 106/82 03/06/25 07:44 Pulse Ox 97 03/06/25 07:44 O2 Del Method Room Air 03/06/25 07:44 BMI result Body Mass Index 29.9 Appearance: Alert. Oriented X3. No acute distress. Cooperative Eyes: Pupils equal, round and reactive to light. ENT: MMM CVS: Normal heart rate and rhythm. Pulses normal. Normal S1 and S2 Respiratory: No respiratory distress. Breath sounds normal. No Wheezing. No rales Abdomen: Soft and nontender. No rigidity. No distention. Skin: Skin warm and dry. Normal skin color. Normal skin turgor. Extremities: No lower extremity edema. No Lacerations. No Rash Neuro: Oriented X 3. No motor deficit. No sensory deficit. Moving all extremities. No slurred speech. CN 2 through 12 grossly intact. Ambulates with steady gait Psych: Calm, cooperative, normal affect Results Labs 03/04/25 19:48 03/04/25 19:48 Assessment and Plan (1) Constipation by delayed colonic transit: Status: Acute Plan 44-year-old male past medical history as listed below presented to the ED with suicidal ideation and visual hallucinations. Now admitted to inpatient psych for stabilization. MDD/anxiety/opioid use disorder on methadone/cocaine use disorder Treatment per psychiatric team History of treated hep C/history of treated TB Completed 9 months of isoniazid per his report Constipation Start senna and Colace scheduled- hold for loose stool One time dose of milk of Mag. Thank you for allowing me to participate in the care of this patient. Will follow with you, please notify medical provider with any changes in condition or concerns.
--- NOTE | 2025-03-06 14:13 | P.PNPSI_ITS ---
Subjective Subjective Date of Service: 03/06/25 Reason For Visit: crisis Subjective Notes: Conditional Voluntary Interim History: Active on unit, keeping to self. Patient continues to report feeling depressed; he reports poor sleep last night d/t nightmares. Discussed starting on Prazosin; risks/benefits reviewed; pt agreed to trial. Start: Prazosin 1mg PO bedtime. He continues to report suicidal ideation with no plan. +AH of screaming and +VH of shadows ; encouraged to utilize PRN Zyprexa. Patient is hoping to be accepted into a substance abuse program. continue tx plan. Medication Compliance: Yes Side effects from medications: No Attending Groups: No Mental Status Exam Mental Status Exam Narrative: Pt is alert and oriented; behavior is cooperative and calm; dressed in casual attire; mood is described as depressed ; eye contact appropriate; Speech is normal rate, volume and not pressured; thought process is organized; Thought content is on tx; denies HI. +SI with no plan. +AH of screaming and +VH of shadows . Diagnostics Vital Signs (24Hr): Vital Signs - 24 hr 03/05/25 14:34 03/05/25 16:51 03/05/25 20:00 Temperature 97.4 F 97.2 F Pulse Rate 90 66 Respiratory Rate 18 15 Blood Pressure 130/69 134/97 H 112/65 Pulse Oximetry 99 96 Oxygen Delivery Method Room Air Room Air 03/06/25 07:44 Temperature 97.9 F Pulse Rate 46 L Respiratory Rate 16 Blood Pressure 106/82 Pulse Oximetry 97 Oxygen Delivery Method Room Air BMI result Body Mass Index 29.9 Labs 03/04/25 19:48 03/04/25 19:48 Labs: Laboratory Results - last 48 hr 03/04/25 03/05/25 19:48 08:30 WBC 7.5 RBC 5.00 Hgb 13.9 L Hct 40.9 L MCV 81.8 MCH 27.8 MCHC 34.0 RDW 13.3 Plt Count 379 MPV 10.1 Immature Gran % (Auto) 0.1 Neut % (Auto) 62.1 Lymph % (Auto) 27.9 Mckenzie % (Auto) 7.2 Eos % (Auto) 2.0 Baso % (Auto) 0.7 Lymph # (Auto) 2.1 Mckenzie # (Auto) 0.5 Eos # (Auto) 0.2 Baso # (Auto) 0.1 Abs Immat Gran (auto) 0.01 Absolute Neuts (auto) 4.7 Absolute Nucleated RBC 0.000 Nucleated RBC % (auto) 0.0 Sodium 141 Potassium 3.8 Chloride 105 Carbon Dioxide 25 Anion Gap 15 BUN 13 Creatinine 1.15 Estim Creat Clear Calc 94.4 Estimated GFR > 60 Random Glucose 103 Calcium 9.3 Total Bilirubin 0.7 AST 40 H ALT 44 H Alkaline Phosphatase 117 Total Protein 7.1 Albumin 4.5 Urine Color Dark Yellow Urine Appearance Clear Urine pH 6.0 Ur Specific Sawyer >= 1.030 H Urine Protein 30 (1+) H Urine Glucose (UA) Negative Urine Ketones 40 Urine Blood Negative Urine Nitrite Negative Ur Leukocyte Esterase Trace H Urine RBC 0-2 Urine WBC 0-5 Ur Squamous Epith Cells 0-2 Urine Bacteria None Seen Hyaline Casts 6-10 Salicylates < 5.0 L Urine Opiates Screen POSITIVE H Ur Buprenorphine Scrn Not Detected Ur Oxycodone Screen Not Detected Urine Methadone Screen Positive H Urine Fentanyl Screen POSITIVE H Acetaminophen < 3 Ur Barbiturates Screen Not Detected Ur Phencyclidine Scrn Not Detected Ur Amphetamines Screen Not Detected U Benzodiazepines Scrn Not Detected Urine Cocaine Screen POSITIVE H U Marijuana (THC) Screen Not Detected Ethyl Alcohol < 10 Medications Medications Current Medications Acetaminophen (Acetaminophen 325 Mg Tablet) 650 mg PO Q6H PRN PRN Reason: Headache/Pain, Scale 1-10 Last Admin: 03/06/25 09:46 Dose: 650 mg Al Hydroxide/Mg Hydroxide (Magnesium Hydrox/Alum Hydrox 30 Ml Oral.Susp) 30 ml PO Q6H PRN PRN Reason: Heartburn/Nausea Clonidine HCl (Clonidine Hcl 0.1 Mg Tablet) 0.1 mg PO TID [facility]; Protocol Last Admin: 03/06/25 08:43 Dose: 0.1 mg Dicyclomine HCl (Dicyclomine Hcl 10 Mg Capsule) 10 mg PO TIDAC PRN PRN Reason: stomach cramps Last Admin: 03/06/25 09:46 Dose: 10 mg Gabapentin (Gabapentin 400 Mg Capsule) 400 mg PO TID [facility] Last Admin: 03/06/25 08:42 Dose: 400 mg Hydroxyzine HCl (Hydroxyzine Hcl 25 Mg Tablet) 25 mg PO Q6H PRN PRN Reason: mild anxiety Last Admin: 03/06/25 09:00 Dose: 25 mg Ibuprofen (Ibuprofen 600 Mg Tablet) 600 mg PO Q6H PRN PRN Reason: Pain, Moderate(Pain Scale 4-6) Magnesium Hydroxide (Milk Of Magnesia 30 Ml Oral.Susp) 30 ml PO DAILY PRN PRN Reason: Constipation Methadone HCl (Methadone Hcl 20 Mg/2 Ml Oral.Conc) 105 mg PO DAILY [facility] Last Admin: 03/06/25 07:58 Dose: 105 mg Mirtazapine (Mirtazapine 15 Mg Tablet) 15 mg PO BEDTIME [facility] Last Admin: 03/05/25 20:34 Dose: 15 mg Nicotine (Nicotine 21 Mg Patch.Td24) 21 mg TRANSDERMA DAILY [facility] Last Admin: 03/06/25 08:43 Dose: 21 mg Nicotine Polacrilex (Nicotine Polacrilex 2 Mg Gum) 4 mg BUCCAL Q2H PRN PRN Reason: Nicotine Cravings Non-Formulary Medication (Isoniazid) 300 mg PO DAILY [facility] Olanzapine (Olanzapine 5 Mg Tablet) 5 mg PO Q4H PRN PRN Reason: agitation/hallucinations Last Admin: 03/05/25 17:40 Dose: 5 mg Ondansetron HCl (Ondansetron Odt 8 Mg Tab.Rapdis) 8 mg TRANSLINGU Q12H PRN PRN Reason: Nausea and Vomiting Prazosin HCl (Prazosin Hcl 1 Mg Capsule) 1 mg PO BEDTIME [facility]; Protocol Trazodone HCl (Trazodone Hcl 50 Mg Tablet) 50 mg PO BEDTIME MRX1 PRN PRN Reason: Insomnia Allergies Allergies Allergy/AdvReac Type Severity Reaction Status Date / Time No Known Allergies (No Known Allergy Verified 03/04/25 18:49 Allergies*) Assessment & Plan Assessment & Plan (1) MDD (major depressive disorder), recurrent severe, without psychosis: Status: Acute Code(s): F33.2 - Major depressive disorder, recurrent severe without psychotic features (2) Opioid use disorder: Status: Acute Code(s): F11.90 - Opioid use, unspecified, uncomplicated (3) Cocaine use disorder: Status: Acute Code(s): F14.10 - Cocaine abuse, uncomplicated Plan Patient is a 44-year-old male with history of MDD, opiate use disorder and cocaine use disorder who presented to ER via ambulance due to suicidal ideation with a plan to walk into traffic or jump off a high surface secondary to increased depression. Plan: CV 15 minute safety checks Continue home medications Start: clonidine 0.1mg PO TID Remeron 15mg PO bedtime Zofran 8mg PO Q12HR PRN nausea Zyprexa 5mg PO Q4HR PRN agitation/hallucinations encourage groups referral to substance abuse program discharge planning 03/06: Active on unit, keeping to self. Patient continues to report feeling depressed; he reports poor sleep last night d/t nightmares. Discussed starting on Prazosin; risks/benefits reviewed; pt agreed to trial. Start: Prazosin 1mg PO bedtime. He continues to report suicidal ideation with no plan. +AH of screaming and +VH of shadows ; encouraged to utilize PRN Zyprexa. Patient is hoping to be accepted into a substance abuse program. continue tx plan. Patient educated on: diagnosis and medication risk/benefits Reason for continued inpatient stay Substantial Risk for: harm to self and med/psych decompensation Time Spent With Patient Time: Total time managing care of this patient today _20___ minutes.
[2025-03-06 16:04] VITALS: BP 94/52
[2025-03-06] MEDS: Nicotine Polacrilex Lozenge 2 MG LOZENGE BUCCAL ×3 (16:32→20:40)
[2025-03-06 17:20] VITALS: BP 100/59; PULSE 64; RESP 16; TEMP 36.6; O2SAT 100
[2025-03-06 20:30] VITALS: BP 133/83; PULSE 73; RESP 18; TEMP 36.4; O2SAT 99
[2025-03-07] MEDS: methADONE HCl 20 MG/2 ML ORAL.CONC 105 MG PO (07:50)
[2025-03-07 08:00] VITALS: BP 126/80; PULSE 67; RESP 16; TEMP 36.5; O2SAT 99
[2025-03-07 08:50] VITALS: BP 126/80
[2025-03-07] MEDS: Nicotine 21 MG PATCH.TD24 TRANSDERMA (08:50)
[2025-03-07] MEDS: Nicotine Polacrilex Lozenge 2 MG LOZENGE BUCCAL ×4 (08:58→21:04)
--- NOTE | 2025-03-07 14:22 | P.PNPSI_ITS ---
Subjective Subjective Date of Service: 03/07/25 Reason For Visit: crisis Subjective Notes: Conditional Voluntary Interim History: Patient continues to report feeling depressed; he reports increased anxiety d/t concerns if he will be accepted into a program for substance use. Continues to report having nightmares last night; per nursing, slept 8 hours. +AH of screaming and +VH of shadows ; Start: Zyprexa 5mg PO BID. denies SI/HI. Medication Compliance: Yes Side effects from medications: No Attending Groups: No Mental Status Exam Mental Status Exam Narrative: Pt is alert and oriented; behavior is cooperative and calm; dressed in casual attire; mood is described as depressed and anxious ; eye contact appropriate; Speech is normal rate, volume and not pressured; thought process is organized; Thought content is on tx; denies SI/HI. +AH of screaming and +VH of shadows . Diagnostics Vital Signs (24Hr): Vital Signs - 24 hr 03/06/25 16:04 03/06/25 17:20 03/06/25 20:30 Temperature 97.9 F 97.5 F Pulse Rate 64 73 Respiratory Rate 16 18 Blood Pressure 94/52 L 100/59 L 133/83 Pulse Oximetry 100 99 Oxygen Delivery Method Room Air Room Air 03/07/25 08:00 03/07/25 08:50 Temperature 97.7 F Pulse Rate 67 Respiratory Rate 16 Blood Pressure 126/80 126/80 Pulse Oximetry 99 Oxygen Delivery Method Room Air BMI result Body Mass Index 29.9 Labs 03/04/25 19:48 03/04/25 19:48 Medications Medications Current Medications Acetaminophen (Acetaminophen 325 Mg Tablet) 650 mg PO Q6H PRN PRN Reason: Headache/Pain, Scale 1-10 Last Admin: 03/06/25 09:46 Dose: 650 mg Al Hydroxide/Mg Hydroxide (Magnesium Hydrox/Alum Hydrox 30 Ml Oral.Susp) 30 ml PO Q6H PRN PRN Reason: Heartburn/Nausea Clonidine HCl (Clonidine Hcl 0.1 Mg Tablet) 0.1 mg PO TID [facility]; Protocol Last Admin: 03/07/25 08:50 Dose: 0.1 mg Dicyclomine HCl (Dicyclomine Hcl 10 Mg Capsule) 10 mg PO TIDAC PRN PRN Reason: stomach cramps Last Admin: 03/07/25 08:58 Dose: 10 mg Docusate Sodium (Docusate Sodium 100 Mg Capsule) 100 mg PO BID [facility] Last Admin: 03/07/25 08:50 Dose: 100 mg Gabapentin (Gabapentin 400 Mg Capsule) 400 mg PO TID [facility] Last Admin: 03/07/25 08:50 Dose: 400 mg Hydroxyzine HCl (Hydroxyzine Hcl 25 Mg Tablet) 25 mg PO Q6H PRN PRN Reason: mild anxiety Last Admin: 03/07/25 08:58 Dose: 25 mg Ibuprofen (Ibuprofen 600 Mg Tablet) 600 mg PO Q6H PRN PRN Reason: Pain, Moderate(Pain Scale 4-6) Last Admin: 03/06/25 20:39 Dose: 600 mg Magnesium Hydroxide (Milk Of Magnesia 30 Ml Oral.Susp) 30 ml PO DAILY PRN PRN Reason: Constipation Methadone HCl (Methadone Hcl 20 Mg/2 Ml Oral.Conc) 105 mg PO DAILY [facility] Last Admin: 03/07/25 07:50 Dose: 105 mg Mirtazapine (Mirtazapine 15 Mg Tablet) 15 mg PO BEDTIME [facility] Last Admin: 03/06/25 20:35 Dose: 15 mg Nicotine (Nicotine 21 Mg Patch.Td24) 21 mg TRANSDERMA DAILY [facility] Last Admin: 03/07/25 08:50 Dose: 21 mg Nicotine Polacrilex (Nicotine Polacrilex Lozenge 2 Mg Lozenge) 2 mg BUCCAL Q1H PRN PRN Reason: Nicotine Cravings Last Admin: 03/07/25 12:32 Dose: 2 mg Non-Formulary Medication (Isoniazid) 300 mg PO DAILY [facility] Olanzapine (Olanzapine 5 Mg Tablet) 5 mg PO Q4H PRN PRN Reason: agitation/hallucinations Last Admin: 03/05/25 17:40 Dose: 5 mg Ondansetron HCl (Ondansetron Odt 8 Mg Tab.Rapdis) 8 mg TRANSLINGU Q12H PRN PRN Reason: Nausea and Vomiting Prazosin HCl (Prazosin Hcl 1 Mg Capsule) 1 mg PO BEDTIME [facility]; Protocol Last Admin: 03/06/25 20:36 Dose: 1 mg Senna (Sennosides 8.6 Mg Tablet) 17.2 mg PO BEDTIME [facility] Last Admin: 03/06/25 20:35 Dose: 17.2 mg Trazodone HCl (Trazodone Hcl 50 Mg Tablet) 50 mg PO BEDTIME MRX1 PRN PRN Reason: Insomnia Allergies Allergies Allergy/AdvReac Type Severity Reaction Status Date / Time No Known Allergies (No Known Allergy Verified 03/04/25 18:49 Allergies*) Assessment & Plan Assessment & Plan (1) MDD (major depressive disorder), recurrent severe, without psychosis: Status: Acute Code(s): F33.2 - Major depressive disorder, recurrent severe without psychotic features (2) Opioid use disorder: Status: Acute Code(s): F11.90 - Opioid use, unspecified, uncomplicated (3) Cocaine use disorder: Status: Acute Code(s): F14.10 - Cocaine abuse, uncomplicated Plan Patient is a 44-year-old male with history of MDD, opiate use disorder and cocaine use disorder who presented to ER via ambulance due to suicidal ideation with a plan to walk into traffic or jump off a high surface secondary to increased depression. Plan: CV 15 minute safety checks Continue home medications Start: clonidine 0.1mg PO TID Remeron 15mg PO bedtime Zofran 8mg PO Q12HR PRN nausea Zyprexa 5mg PO Q4HR PRN agitation/hallucinations encourage groups referral to substance abuse program discharge planning 03/06: Active on unit, keeping to self. Patient continues to report feeling depressed; he reports poor sleep last night d/t nightmares. Discussed starting on Prazosin; risks/benefits reviewed; pt agreed to trial. Start: Prazosin 1mg PO bedtime. He continues to report suicidal ideation with no plan. +AH of screaming and +VH of shadows ; encouraged to utilize PRN Zyprexa. Patient is hoping to be accepted into a substance abuse program. continue tx plan. 03/07:Patient continues to report feeling depressed; he reports increased anxiety d/t concerns if he will be accepted into a program for substance use. Continues to report having nightmares last night; per nursing, slept 8 hours. +AH of screaming and +VH of shadows ; Start: Zyprexa 5mg PO BID. denies SI/HI. Patient educated on: diagnosis and medication risk/benefits Reason for continued inpatient stay Substantial Risk for: med/psych decompensation Time Spent With Patient Time: Total time managing care of this patient today _20___ minutes.
[2025-03-07 14:49] VITALS: BP 114/78
--- NOTE | 2025-03-07 14:52 | PC.NURSE ---
Pt reports some constipation. He reports that he was attempting to have a BM and there was willy blood in water and all over toilet paper. Not a smear. Pt denies hx of hemorrhoid. Reported to provider.
[2025-03-07 20:00] VITALS: BP 118/68; PULSE 63; RESP 16; TEMP 36.2; O2SAT 100
[2025-03-07 21:05] VITALS: BP 118/68
[2025-03-08 08:00] VITALS: BP 115/69; PULSE 81; RESP 16; TEMP 36.2; O2SAT 98
[2025-03-08] MEDS: methADONE HCl 20 MG/2 ML ORAL.CONC 105 MG PO (08:03)
[2025-03-08] MEDS: Nicotine 21 MG PATCH.TD24 TRANSDERMA (08:37)
[2025-03-08] MEDS: Nicotine Polacrilex Lozenge 2 MG LOZENGE BUCCAL ×4 (08:39→21:07)
[2025-03-08 15:59] VITALS: BP 126/73; PULSE 93
--- NOTE | 2025-03-08 16:23 | HO.PSYCHPN ---
Subjective Subjective Date of Service: 03/08/25 Reason For Visit: crisis Interim History: Met with patient; discussed with team Patient remains depressed but a little better. Denies any SI. AH resolved and patient says it is only mood congruent; does not want to be on antipsychotic. Wants to to get on medications he was on at last admission including Wellbutrin XL 150 mg. Patient asks for help to get bank card to girlfriend to pay rent Mental Status Exam Mental Status Exam Narrative: Pt is alert and oriented; behavior is quiet, isolative, cooperative on approach; patient is not in distress; dressed in casual attire, blanket wrapped around him; unkempt; mood is described as depressed and affect congruent, downcast; eye contact appropriate; Speech is a little slowed and a little soft; psychomotor retardation present; thought process is organized and goal directed; Thought content is on tx; otherwise pertinent to relevant topics and without any delusional content, paranoid ideations or grandiosity; denies any SI/HI. Denies AVH and there is no evidence of perceptual disturbance. Patients insight and judgment improving. Diagnostics Vital Signs (24Hr): Vital Signs - 24 hr 03/07/25 20:00 03/07/25 21:05 03/07/25 21:05 Temperature 97.1 F Pulse Rate 63 Respiratory Rate 16 Blood Pressure 118/68 118/68 118/68 Pulse Oximetry 100 Oxygen Delivery Method Room Air 03/08/25 08:00 03/08/25 15:59 Temperature 97.2 F Pulse Rate 81 93 Respiratory Rate 16 Blood Pressure 115/69 126/73 Pulse Oximetry 98 Oxygen Delivery Method Room Air BMI result Body Mass Index 29.9 Labs 03/04/25 19:48 03/04/25 19:48 Medications Medications Current Medications Acetaminophen (Acetaminophen 325 Mg Tablet) 650 mg PO Q6H PRN PRN Reason: Headache/Pain, Scale 1-10 Last Admin: 03/06/25 09:46 Dose: 650 mg Al Hydroxide/Mg Hydroxide (Magnesium Hydrox/Alum Hydrox 30 Ml Oral.Susp) 30 ml PO Q6H PRN PRN Reason: Heartburn/Nausea Clonidine HCl (Clonidine Hcl 0.1 Mg Tablet) 0.1 mg PO TID [facility]; Protocol Last Admin: 03/08/25 16:02 Dose: 0.1 mg Dicyclomine HCl (Dicyclomine Hcl 10 Mg Capsule) 10 mg PO TIDAC PRN PRN Reason: stomach cramps Last Admin: 03/08/25 08:38 Dose: 10 mg Docusate Sodium (Docusate Sodium 100 Mg Capsule) 100 mg PO BID [facility] Last Admin: 03/08/25 08:38 Dose: 100 mg Gabapentin (Gabapentin 400 Mg Capsule) 400 mg PO TID [facility] Last Admin: 03/08/25 16:02 Dose: 400 mg Hydroxyzine HCl (Hydroxyzine Hcl 25 Mg Tablet) 25 mg PO Q6H PRN PRN Reason: mild anxiety Last Admin: 03/08/25 16:01 Dose: 25 mg Ibuprofen (Ibuprofen 600 Mg Tablet) 600 mg PO Q6H PRN PRN Reason: Pain, Moderate(Pain Scale 4-6) Last Admin: 03/06/25 20:39 Dose: 600 mg Magnesium Hydroxide (Milk Of Magnesia 30 Ml Oral.Susp) 30 ml PO DAILY PRN PRN Reason: Constipation Methadone HCl (Methadone Hcl 20 Mg/2 Ml Oral.Conc) 105 mg PO DAILY [facility] Last Admin: 03/08/25 08:03 Dose: 105 mg Mirtazapine (Mirtazapine 15 Mg Tablet) 15 mg PO BEDTIME [facility] Last Admin: 03/07/25 21:04 Dose: 15 mg Nicotine (Nicotine 21 Mg Patch.Td24) 21 mg TRANSDERMA DAILY [facility] Last Admin: 03/08/25 08:37 Dose: 21 mg Nicotine Polacrilex (Nicotine Polacrilex Lozenge 2 Mg Lozenge) 2 mg BUCCAL Q1H PRN PRN Reason: Nicotine Cravings Last Admin: 03/08/25 16:06 Dose: 2 mg Non-Formulary Medication (Isoniazid) 300 mg PO DAILY [facility] Olanzapine (Olanzapine 5 Mg Tablet) 5 mg PO Q4H PRN PRN Reason: agitation/hallucinations Last Admin: 03/07/25 14:49 Dose: 5 mg Olanzapine (Olanzapine 5 Mg Tablet) 5 mg PO BID [facility] Last Admin: 03/08/25 08:39 Dose: 5 mg Ondansetron HCl (Ondansetron Odt 8 Mg Tab.Rapdis) 8 mg TRANSLINGU Q12H PRN PRN Reason: Nausea and Vomiting Prazosin HCl (Prazosin Hcl 1 Mg Capsule) 1 mg PO BEDTIME [facility]; Protocol Last Admin: 03/07/25 21:05 Dose: 1 mg Senna (Sennosides 8.6 Mg Tablet) 17.2 mg PO BEDTIME [facility] Last Admin: 03/07/25 21:05 Dose: 17.2 mg Trazodone HCl (Trazodone Hcl 50 Mg Tablet) 50 mg PO BEDTIME MRX1 PRN PRN Reason: Insomnia Allergies Allergies Allergy/AdvReac Type Severity Reaction Status Date / Time No Known Allergies (No Known Allergy Verified 03/04/25 18:49 Allergies*) Assessment & Plan Assessment & Plan (1) MDD (major depressive disorder), recurrent severe, without psychosis: Status: Acute Code(s): F33.2 - Major depressive disorder, recurrent severe without psychotic features (2) Opioid use disorder: Status: Acute Code(s): F11.90 - Opioid use, unspecified, uncomplicated (3) Cocaine use disorder: Status: Acute Code(s): F14.10 - Cocaine abuse, uncomplicated Plan Patient is a 44-year-old male with history of MDD, opiate use disorder and cocaine use disorder who presented to ER via ambulance due to suicidal ideation with a plan to walk into traffic or jump off a high surface secondary to increased depression. Plan: CV 15 minute safety checks Continue home medications Start: clonidine 0.1mg PO TID Remeron 15mg PO bedtime Zofran 8mg PO Q12HR PRN nausea Zyprexa 5mg PO Q4HR PRN agitation/hallucinations encourage groups referral to substance abuse program discharge planning 03/06: Active on unit, keeping to self. Patient continues to report feeling depressed; he reports poor sleep last night d/t nightmares. Discussed starting on Prazosin; risks/benefits reviewed; pt agreed to trial. Start: Prazosin 1mg PO bedtime. He continues to report suicidal ideation with no plan. +AH of screaming and +VH of shadows ; encouraged to utilize PRN Zyprexa. Patient is hoping to be accepted into a substance abuse program. continue tx plan. 03/07:Patient continues to report feeling depressed; he reports increased anxiety d/t concerns if he will be accepted into a program for substance use. Continues to report having nightmares last night; per nursing, slept 8 hours. +AH of screaming and +VH of shadows ; Start: Zyprexa 5mg PO BID. denies SI/HI. 03/08 Patient remains depressed but a little better. Denies any SI. AH resolved and patient says it is only mood congruent; does not want to be on antipsychotic. Wants to to get on medications he was on at last admission including Wellbutrin XL 150 mg. 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 -DC Zyprexa; mood congruent AVH resolved and patient does not want to be on antipsychotic -increase prazosin to 2 mg q.h.s. for nightmares Patient educated on: diagnosis, medication risk/benefits, substance abuse and therapeutic strategies Informed Consent: understands Reason for continued inpatient stay Substantial Risk for: rapid decompensation Time Spent With Patient Time: Total time managing care of this patient today ____ minutes.
[2025-03-08 20:00] VITALS: BP 116/79; PULSE 86; RESP 16; TEMP 36.4; O2SAT 100
[2025-03-08 21:05] VITALS: BP 120/62; PULSE 82; RESP 16
[2025-03-09] MEDS: methADONE HCl 20 MG/2 ML ORAL.CONC 105 MG PO (08:23)
[2025-03-09 09:09] VITALS: BP 105/68; PULSE 59; RESP 20; TEMP 36.6; O2SAT 97
[2025-03-09] MEDS: buPROPion HCl XL 150 MG TAB.ER.24H PO (09:09)
[2025-03-09] MEDS: Nicotine 21 MG PATCH.TD24 TRANSDERMA (09:10)
[2025-03-09] MEDS: Nicotine Polacrilex Lozenge 2 MG LOZENGE BUCCAL ×4 (09:19→22:46)
--- NOTE | 2025-03-09 09:20 | P.PNPSI_ITS ---
Subjective Subjective Date of Service: 03/09/25 Reason For Visit: crisis Interim History: Patient seen. Says he is still having anxiety. Adherent to medications. Complains having screaming AH and shadows . Denies SI. Sleep: Says he had interrupted sleep. Started Wellbutrin XL 150 mg today. Review of Systems Review of Systems Denies any shortness of breath, chest pain, headaches, dysuria, abdominal pain or discomfort, nausea, vomiting or diarrhea. Denies fever or chills. Mental Status Exam Mental Status Exam Patient Appearance: Appropriate Patient Orientation: Person, Place, Time and Situation Level of Consciousness: Awake and Alert Patient Behavior: Appropriate, Cooperative and Good Eye Contact Mood Description: Depressed Affect Description: Depressed Ability to Follow Directions: Good Speech Pattern: Clear and Soft-Spoken Memory Description: Intact Diagnostics Vital Signs (24Hr): Vital Signs - 24 hr 03/08/25 15:59 03/08/25 20:00 03/08/25 21:05 Temperature 97.5 F Pulse Rate 93 86 82 Respiratory Rate 16 16 Blood Pressure 126/73 116/79 120/62 Pulse Oximetry 100 Oxygen Delivery Method Room Air 03/09/25 09:09 03/09/25 09:09 Temperature 97.9 F Pulse Rate 59 Respiratory Rate 20 Blood Pressure 105/68 105/68 Pulse Oximetry 97 Oxygen Delivery Method BMI result Body Mass Index 29.9 Labs 03/04/25 19:48 03/04/25 19:48 Medications Medications Current Medications Acetaminophen (Acetaminophen 325 Mg Tablet) 650 mg PO Q6H PRN PRN Reason: Headache/Pain, Scale 1-10 Last Admin: 03/06/25 09:46 Dose: 650 mg Al Hydroxide/Mg Hydroxide (Magnesium Hydrox/Alum Hydrox 30 Ml Oral.Susp) 30 ml PO Q6H PRN PRN Reason: Heartburn/Nausea Bupropion HCl (Bupropion Hcl Xl 150 Mg Tab.Er.24h) 150 mg PO DAILY [facility] Last Admin: 03/09/25 09:09 Dose: 150 mg Clonidine HCl (Clonidine Hcl 0.1 Mg Tablet) 0.1 mg PO TID [facility]; Protocol Last Admin: 03/09/25 09:09 Dose: 0.1 mg Dicyclomine HCl (Dicyclomine Hcl 10 Mg Capsule) 10 mg PO TIDAC PRN PRN Reason: stomach cramps Last Admin: 03/09/25 09:19 Dose: 10 mg Diphenhydramine HCl (Diphenhydramine Hcl 25 Mg Capsule) 50 mg PO BEDTIME [facility] Last Admin: 03/08/25 22:55 Dose: 50 mg Docusate Sodium (Docusate Sodium 100 Mg Capsule) 100 mg PO BID [facility] Last Admin: 03/09/25 09:10 Dose: 100 mg Docusate Sodium (Docusate Sodium 100 Mg Capsule) 100 mg PO BEDTIME [facility] Gabapentin (Gabapentin 400 Mg Capsule) 400 mg PO TID [facility] Last Admin: 03/09/25 09:10 Dose: 400 mg Hydroxyzine HCl (Hydroxyzine Hcl 25 Mg Tablet) 25 mg PO Q6H PRN PRN Reason: mild anxiety Last Admin: 03/09/25 09:19 Dose: 25 mg Ibuprofen (Ibuprofen 600 Mg Tablet) 600 mg PO Q6H PRN PRN Reason: Pain, Moderate(Pain Scale 4-6) Last Admin: 03/06/25 20:39 Dose: 600 mg Lidocaine (Lidocaine 5 % Ointment 35 Gm) 1 appl TOPICAL Q6H PRN; Protocol PRN Reason: Hemorrhoids Magnesium Hydroxide (Milk Of Magnesia 30 Ml Oral.Susp) 30 ml PO DAILY PRN PRN Reason: Constipation Methadone HCl (Methadone Hcl 20 Mg/2 Ml Oral.Conc) 105 mg PO DAILY [facility] Last Admin: 03/09/25 08:23 Dose: 105 mg Mirtazapine (Mirtazapine 30 Mg Tablet) 30 mg PO BEDTIME [facility] Last Admin: 03/08/25 21:08 Dose: 30 mg Nicotine (Nicotine 21 Mg Patch.Td24) 21 mg TRANSDERMA DAILY [facility] Last Admin: 03/09/25 09:10 Dose: 21 mg Nicotine Polacrilex (Nicotine Polacrilex Lozenge 2 Mg Lozenge) 2 mg BUCCAL Q1H PRN PRN Reason: Nicotine Cravings Last Admin: 03/09/25 09:19 Dose: 2 mg Non-Formulary Medication (Isoniazid) 300 mg PO DAILY [facility] Olanzapine (Olanzapine 5 Mg Tablet) 5 mg PO Q4H PRN PRN Reason: agitation/hallucinations Last Admin: 03/07/25 14:49 Dose: 5 mg Ondansetron HCl (Ondansetron Odt 8 Mg Tab.Rapdis) 8 mg TRANSLINGU Q12H PRN PRN Reason: Nausea and Vomiting Prazosin HCl (Prazosin Hcl 1 Mg Capsule) 2 mg PO BEDTIME [facility]; Protocol Last Admin: 03/08/25 21:07 Dose: 2 mg Senna (Sennosides 8.6 Mg Tablet) 17.2 mg PO BEDTIME [facility] Last Admin: 03/08/25 21:08 Dose: 17.2 mg Trazodone HCl (Trazodone Hcl 50 Mg Tablet) 50 mg PO BEDTIME MRX1 PRN PRN Reason: Insomnia Allergies Allergies Allergy/AdvReac Type Severity Reaction Status Date / Time No Known Allergies (No Known Allergy Verified 03/04/25 18:49 Allergies*) Assessment & Plan Assessment & Plan (1) MDD (major depressive disorder), recurrent severe, without psychosis: Status: Acute Code(s): F33.2 - Major depressive disorder, recurrent severe without psychotic features (2) Opioid use disorder: Status: Acute Code(s): F11.90 - Opioid use, unspecified, uncomplicated (3) Cocaine use disorder: Status: Acute Code(s): F14.10 - Cocaine abuse, uncomplicated Plan Patient is a 44-year-old male with history of MDD, opiate use disorder and cocaine use disorder who presented to ER via ambulance due to suicidal ideation with a plan to walk into traffic or jump off a high surface secondary to increased depression. Plan: CV 15 minute safety checks Continue home medications Start: clonidine 0.1mg PO TID Remeron 15mg PO bedtime Zofran 8mg PO Q12HR PRN nausea Zyprexa 5mg PO Q4HR PRN agitation/hallucinations encourage groups referral to substance abuse program discharge planning 03/06: Active on unit, keeping to self. Patient continues to report feeling depressed; he reports poor sleep last night d/t nightmares. Discussed starting on Prazosin; risks/benefits reviewed; pt agreed to trial. Start: Prazosin 1mg PO bedtime. He continues to report suicidal ideation with no plan. +AH of screaming and +VH of shadows ; encouraged to utilize PRN Zyprexa. Patient is hoping to be accepted into a substance abuse program. continue tx plan. 03/07:Patient continues to report feeling depressed; he reports increased anxiety d/t concerns if he will be accepted into a program for substance use. Continues to report having nightmares last night; per nursing, slept 8 hours. +AH of screaming and +VH of shadows ; Start: Zyprexa 5mg PO BID. denies SI/HI. 03/09: continue current management and treatment plan. Reason for continued inpatient stay Substantial Risk for: harm to self, inability to function and rapid decompensation Time Spent With Patient Time: Total time managing care of this patient today ____ minutes.
[2025-03-09 15:08] VITALS: BP 119/72
[2025-03-09 21:00] VITALS: BP 114/63; PULSE 72; RESP 16; TEMP 36.8; O2SAT 95
[2025-03-10] MEDS: methADONE HCl 20 MG/2 ML ORAL.CONC 105 MG PO (07:49)
[2025-03-10 08:08] VITALS: BP 121/66; PULSE 58; RESP 14; TEMP 36.8; O2SAT 98
[2025-03-10] MEDS: Nicotine 21 MG PATCH.TD24 TRANSDERMA (08:28)
[2025-03-10] MEDS: buPROPion HCl XL 150 MG TAB.ER.24H PO (08:28)
[2025-03-10] MEDS: Nicotine Polacrilex Lozenge 2 MG LOZENGE BUCCAL ×3 (08:34→21:11)
--- NOTE | 2025-03-10 09:45 | P.PNPSI_ITS ---
Subjective Subjective Date of Service: 03/10/25 Reason For Visit: crisis Interim History: Patient seen. Some AH but decreased. Says he is still having anxiety related to leaving and being homeless. Adherent to medications. On review of DC summary in December 2024, he used to be on higher dose of Gabapentin and he finds Gabapentin helpful for his anxiety. Denies SI. Sleep: Says he had interrupted sleep. 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 Review of Systems Review of Systems Denies any shortness of breath, chest pain, headaches, dysuria, abdominal pain or discomfort, nausea, vomiting or diarrhea. Denies fever or chills. Mental Status Exam Mental Status Exam Patient Appearance: Appropriate Patient Orientation: Person, Place, Time and Situation Level of Consciousness: Awake and Alert Patient Behavior: Appropriate, Cooperative and Good Eye Contact Mood Description: Depressed Affect Description: Depressed Ability to Follow Directions: Good Speech Pattern: Clear and Soft-Spoken Memory Description: Intact Diagnostics Vital Signs (24Hr): Vital Signs - 24 hr 03/09/25 15:08 03/09/25 21:00 03/10/25 08:08 Temperature 98.3 F 98.2 F Pulse Rate 72 58 Respiratory Rate 16 14 Blood Pressure 119/72 114/63 121/66 Pulse Oximetry 95 98 Oxygen Delivery Method Room Air Room Air BMI result Body Mass Index 29.9 Labs 03/04/25 19:48 03/04/25 19:48 Medications Medications Current Medications Acetaminophen (Acetaminophen 325 Mg Tablet) 650 mg PO Q6H PRN PRN Reason: Headache/Pain, Scale 1-10 Last Admin: 03/10/25 08:33 Dose: 650 mg Al Hydroxide/Mg Hydroxide (Magnesium Hydrox/Alum Hydrox 30 Ml Oral.Susp) 30 ml PO Q6H PRN PRN Reason: Heartburn/Nausea Bupropion HCl (Bupropion Hcl Xl 150 Mg Tab.Er.24h) 150 mg PO DAILY [facility] Last Admin: 03/10/25 08:28 Dose: 150 mg Clonidine HCl (Clonidine Hcl 0.1 Mg Tablet) 0.1 mg PO TID [facility]; Protocol Last Admin: 03/10/25 08:27 Dose: 0.1 mg Dicyclomine HCl (Dicyclomine Hcl 10 Mg Capsule) 10 mg PO TIDAC PRN PRN Reason: stomach cramps Last Admin: 03/10/25 08:28 Dose: 10 mg Diphenhydramine HCl (Diphenhydramine Hcl 25 Mg Capsule) 50 mg PO BEDTIME [facility] Last Admin: 03/09/25 22:44 Dose: 50 mg Docusate Sodium (Docusate Sodium 100 Mg Capsule) 100 mg PO BID [facility] Last Admin: 03/10/25 08:28 Dose: 100 mg Docusate Sodium (Docusate Sodium 100 Mg Capsule) 100 mg PO BEDTIME [facility] Last Admin: 03/09/25 21:08 Dose: 100 mg Gabapentin (Gabapentin 400 Mg Capsule) 400 mg PO TID [facility] Last Admin: 03/10/25 08:28 Dose: 400 mg Hydroxyzine HCl (Hydroxyzine Hcl 25 Mg Tablet) 25 mg PO Q6H PRN PRN Reason: mild anxiety Last Admin: 03/10/25 08:28 Dose: 25 mg Ibuprofen (Ibuprofen 600 Mg Tablet) 600 mg PO Q6H PRN PRN Reason: Pain, Moderate(Pain Scale 4-6) Last Admin: 03/06/25 20:39 Dose: 600 mg Lidocaine (Lidocaine 5 % Ointment 35 Gm) 1 appl TOPICAL Q6H PRN; Protocol PRN Reason: Hemorrhoids Magnesium Hydroxide (Milk Of Magnesia 30 Ml Oral.Susp) 30 ml PO DAILY PRN PRN Reason: Constipation Methadone HCl (Methadone Hcl 20 Mg/2 Ml Oral.Conc) 105 mg PO DAILY [facility] Last Admin: 03/10/25 07:49 Dose: 105 mg Mirtazapine (Mirtazapine 30 Mg Tablet) 30 mg PO BEDTIME [facility] Last Admin: 03/09/25 21:07 Dose: 30 mg Nicotine (Nicotine 21 Mg Patch.Td24) 21 mg TRANSDERMA DAILY [facility] Last Admin: 03/10/25 08:28 Dose: 21 mg Nicotine Polacrilex (Nicotine Polacrilex Lozenge 2 Mg Lozenge) 2 mg BUCCAL Q1H PRN PRN Reason: Nicotine Cravings Last Admin: 03/10/25 08:34 Dose: 2 mg Non-Formulary Medication (Isoniazid) 300 mg PO DAILY [facility] Olanzapine (Olanzapine 5 Mg Tablet) 5 mg PO Q4H PRN PRN Reason: agitation/hallucinations Last Admin: 03/07/25 14:49 Dose: 5 mg Ondansetron HCl (Ondansetron Odt 8 Mg Tab.Rapdis) 8 mg TRANSLINGU Q12H PRN PRN Reason: Nausea and Vomiting Prazosin HCl (Prazosin Hcl 1 Mg Capsule) 2 mg PO BEDTIME [facility]; Protocol Last Admin: 03/09/25 21:07 Dose: 2 mg Senna (Sennosides 8.6 Mg Tablet) 17.2 mg PO BEDTIME [facility] Last Admin: 03/09/25 21:06 Dose: 17.2 mg Trazodone HCl (Trazodone Hcl 50 Mg Tablet) 50 mg PO BEDTIME MRX1 PRN PRN Reason: Insomnia Allergies Allergies Allergy/AdvReac Type Severity Reaction Status Date / Time No Known Allergies (No Known Allergy Verified 03/04/25 18:49 Allergies*) Assessment & Plan Assessment & Plan (1) MDD (major depressive disorder), recurrent severe, without psychosis: Status: Acute Code(s): F33.2 - Major depressive disorder, recurrent severe without psychotic features (2) Opioid use disorder: Status: Acute Code(s): F11.90 - Opioid use, unspecified, uncomplicated (3) Cocaine use disorder: Status: Acute Code(s): F14.10 - Cocaine abuse, uncomplicated Plan Patient is a 44-year-old male with history of MDD, opiate use disorder and cocaine use disorder who presented to ER via ambulance due to suicidal ideation with a plan to walk into traffic or jump off a high surface secondary to increased depression. Plan: CV 15 minute safety checks Continue home medications Start: clonidine 0.1mg PO TID Remeron 15mg PO bedtime Zofran 8mg PO Q12HR PRN nausea Zyprexa 5mg PO Q4HR PRN agitation/hallucinations encourage groups referral to substance abuse program discharge planning 03/06: Active on unit, keeping to self. Patient continues to report feeling depressed; he reports poor sleep last night d/t nightmares. Discussed starting on Prazosin; risks/benefits reviewed; pt agreed to trial. Start: Prazosin 1mg PO bedtime. He continues to report suicidal ideation with no plan. +AH of screaming and +VH of shadows ; encouraged to utilize PRN Zyprexa. Patient is hoping to be accepted into a substance abuse program. continue tx plan. 03/07:Patient continues to report feeling depressed; he reports increased anxiety d/t concerns if he will be accepted into a program for substance use. Continues to report having nightmares last night; per nursing, slept 8 hours. +AH of screaming and +VH of shadows ; Start: Zyprexa 5mg PO BID. denies SI/HI. 03/08 Patient remains depressed but a little better. Denies any SI. AH resolved and patient says it is only mood congruent; does not want to be on antipsychotic. Wants to to get on medications he was on at last admission including Wellbutrin XL 150 mg. 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 -DC Zyprexa; mood congruent AVH resolved and patient does not want to be on antipsychotic -increase prazosin to 2 mg q.h.s. for nightmares 03/10: Increase Gabapentin to 600 mg TID and continue current management and treatment plan. Reason for continued inpatient stay Substantial Risk for: harm to self, inability to function and rapid decompensation Time Spent With Patient Time: Total time managing care of this patient today ____ minutes.
[2025-03-10 15:40] VITALS: BP 110/68
[2025-03-10 20:00] VITALS: BP 112/76; PULSE 80; RESP 16; TEMP 36.3; O2SAT 98
[2025-03-10 20:29] VITALS: BP 112/76
[2025-03-10 20:30] VITALS: BP 112/76
[2025-03-11] MEDS: methADONE HCl 20 MG/2 ML ORAL.CONC 105 MG PO (07:54)
[2025-03-11 07:57] VITALS: BP 112/66; PULSE 58; RESP 16; TEMP 36.7; O2SAT 97
[2025-03-11] MEDS: Nicotine 21 MG PATCH.TD24 TRANSDERMA (08:55)
[2025-03-11 08:57] VITALS: BP 112/66
[2025-03-11] MEDS: Nicotine Polacrilex Lozenge 2 MG LOZENGE BUCCAL ×4 (08:57→20:43)
[2025-03-11] MEDS: buPROPion HCl XL 150 MG TAB.ER.24H PO (08:58)
--- NOTE | 2025-03-11 15:35 | P.PNPSI_ITS ---
Subjective Subjective Date of Service: 03/11/25 Reason For Visit: crisis Subjective Notes: Conditional Voluntary Interim History: Keeping to self. Patient reports feeling a little better ; denies SI/HI. He reports auditory and visual hallucinations are less than before ; encouraged to utilize Zyprexa PRN if needed. Patient continues focused on obtaining placement at substance abuse program;social media executive aware. Per nursing, slept 8 hours last night. Continue tx plan. Medication Compliance: Yes Side effects from medications: No Attending Groups: No Mental Status Exam Mental Status Exam Narrative: Pt is alert and oriented; behavior is cooperative and calm; dressed in casual attire; mood is described as a little better ; eye contact appropriate; Speech is normal rate, volume and not pressured; thought process is organized; Thought content is on tx; denies SI/HI. +AH/VH which he describes as less than before . Diagnostics Vital Signs (24Hr): Vital Signs - 24 hr 03/10/25 15:40 03/10/25 20:00 03/10/25 20:29 Temperature 97.3 F Pulse Rate 80 Respiratory Rate 16 Blood Pressure 110/68 112/76 112/76 Pulse Oximetry 98 Oxygen Delivery Method Room Air 03/10/25 20:30 03/11/25 07:57 03/11/25 08:57 Temperature 98.1 F Pulse Rate 58 Respiratory Rate 16 Blood Pressure 112/76 112/66 112/66 Pulse Oximetry 97 Oxygen Delivery Method Room Air BMI result Body Mass Index 29.9 Labs 03/04/25 19:48 03/04/25 19:48 Medications Medications Current Medications Acetaminophen (Acetaminophen 325 Mg Tablet) 650 mg PO Q6H PRN PRN Reason: Headache/Pain, Scale 1-10 Last Admin: 03/11/25 08:58 Dose: 650 mg Al Hydroxide/Mg Hydroxide (Magnesium Hydrox/Alum Hydrox 30 Ml Oral.Susp) 30 ml PO Q6H PRN PRN Reason: Heartburn/Nausea Bupropion HCl (Bupropion Hcl Xl 150 Mg Tab.Er.24h) 150 mg PO DAILY RHEA Last Admin: 03/11/25 08:58 Dose: 150 mg Clonidine HCl (Clonidine Hcl 0.1 Mg Tablet) 0.1 mg PO TID RHEA; Protocol Last Admin: 03/11/25 08:57 Dose: 0.1 mg Dicyclomine HCl (Dicyclomine Hcl 10 Mg Capsule) 10 mg PO TIDAC PRN PRN Reason: stomach cramps Last Admin: 03/11/25 08:58 Dose: 10 mg Diphenhydramine HCl (Diphenhydramine Hcl 25 Mg Capsule) 50 mg PO BEDTIME [facility] Last Admin: 03/10/25 21:59 Dose: 50 mg Docusate Sodium (Docusate Sodium 100 Mg Capsule) 100 mg PO BID [facility] Last Admin: 03/11/25 08:57 Dose: 100 mg Docusate Sodium (Docusate Sodium 100 Mg Capsule) 100 mg PO BEDTIME [facility] Last Admin: 03/10/25 20:30 Dose: 100 mg Gabapentin (Gabapentin 300 Mg Capsule) 600 mg PO TID [facility] Last Admin: 03/11/25 08:57 Dose: 600 mg Hydroxyzine HCl (Hydroxyzine Hcl 25 Mg Tablet) 25 mg PO Q6H PRN PRN Reason: mild anxiety Last Admin: 03/11/25 08:56 Dose: 25 mg Ibuprofen (Ibuprofen 600 Mg Tablet) 600 mg PO Q6H PRN PRN Reason: Pain, Moderate(Pain Scale 4-6) Last Admin: 03/06/25 20:39 Dose: 600 mg Lidocaine (Lidocaine 5 % Ointment 35 Gm) 1 appl TOPICAL Q6H PRN; Protocol PRN Reason: Hemorrhoids Magnesium Hydroxide (Milk Of Magnesia 30 Ml Oral.Susp) 30 ml PO DAILY PRN PRN Reason: Constipation Methadone HCl (Methadone Hcl 20 Mg/2 Ml Oral.Conc) 105 mg PO DAILY [facility] Last Admin: 03/11/25 07:54 Dose: 105 mg Mirtazapine (Mirtazapine 30 Mg Tablet) 30 mg PO BEDTIME [facility] Last Admin: 03/10/25 20:31 Dose: 30 mg Nicotine (Nicotine 21 Mg Patch.Td24) 21 mg TRANSDERMA DAILY [facility] Last Admin: 03/11/25 08:55 Dose: 21 mg Nicotine Polacrilex (Nicotine Polacrilex Lozenge 2 Mg Lozenge) 2 mg BUCCAL Q1H PRN PRN Reason: Nicotine Cravings Last Admin: 03/11/25 13:38 Dose: 2 mg Olanzapine (Olanzapine 5 Mg Tablet) 5 mg PO Q4H PRN PRN Reason: agitation/hallucinations Last Admin: 03/07/25 14:49 Dose: 5 mg Ondansetron HCl (Ondansetron Odt 8 Mg Tab.Rapdis) 8 mg TRANSLINGU Q12H PRN PRN Reason: Nausea and Vomiting Prazosin HCl (Prazosin Hcl 1 Mg Capsule) 2 mg PO BEDTIME RHEA; Protocol Last Admin: 03/10/25 20:29 Dose: 2 mg Senna (Sennosides 8.6 Mg Tablet) 17.2 mg PO BEDTIME [facility] Last Admin: 03/10/25 20:31 Dose: 17.2 mg Trazodone HCl (Trazodone Hcl 50 Mg Tablet) 50 mg PO BEDTIME MRX1 PRN PRN Reason: Insomnia Allergies Allergies Allergy/AdvReac Type Severity Reaction Status Date / Time No Known Allergies (No Known Allergy Verified 03/04/25 18:49 Allergies*) Assessment & Plan Assessment & Plan (1) MDD (major depressive disorder), recurrent severe, without psychosis: Status: Acute Code(s): F33.2 - Major depressive disorder, recurrent severe without psychotic features (2) Opioid use disorder: Status: Acute Code(s): F11.90 - Opioid use, unspecified, uncomplicated (3) Cocaine use disorder: Status: Acute Code(s): F14.10 - Cocaine abuse, uncomplicated Plan Patient is a 44-year-old male with history of MDD, opiate use disorder and cocaine use disorder who presented to ER via ambulance due to suicidal ideation with a plan to walk into traffic or jump off a high surface secondary to increased depression. Plan: CV 15 minute safety checks Continue home medications Start: clonidine 0.1mg PO TID Remeron 15mg PO bedtime Zofran 8mg PO Q12HR PRN nausea Zyprexa 5mg PO Q4HR PRN agitation/hallucinations encourage groups referral to substance abuse program discharge planning 03/06: Active on unit, keeping to self. Patient continues to report feeling depressed; he reports poor sleep last night d/t nightmares. Discussed starting on Prazosin; risks/benefits reviewed; pt agreed to trial. Start: Prazosin 1mg PO bedtime. He continues to report suicidal ideation with no plan. +AH of screaming and +VH of shadows ; encouraged to utilize PRN Zyprexa. Patient is hoping to be accepted into a substance abuse program. continue tx plan. 03/07:Patient continues to report feeling depressed; he reports increased anxiety d/t concerns if he will be accepted into a program for substance use. Continues to report having nightmares last night; per nursing, slept 8 hours. +AH of screaming and +VH of shadows ; Start: Zyprexa 5mg PO BID. denies SI/HI. 03/08 Patient remains depressed but a little better. Denies any SI. AH resolved and patient says it is only mood congruent; does not want to be on antipsychotic. Wants to to get on medications he was on at last admission including Wellbutrin XL 150 mg. Patient asks for help to get bank card to girlfriend to pay rent; music writer discussed with team who agreed -start Wellbutrin XL 150 mg; does not tolerate higher dose -mirtazapin 30 mg q.h.s. -DC Zyprexa; mood congruent AVH resolved and patient does not want to be on antipsychotic -increase prazosin to 2 mg q.h.s. for nightmares 03/10: Increase Gabapentin to 600 mg TID and continue current management and treatment plan. 03/11: Keeping to self. Patient reports feeling a little better ; denies SI/HI. He reports auditory and visual hallucinations are less than before ; encouraged to utilize Zyprexa PRN if needed. Patient continues focused on obtaining placement at substance abuse program;social media executive aware. Per nursing, slept 8 hours last night. Continue tx plan. Patient educated on: diagnosis, medication risk/benefits and therapeutic strategies Reason for continued inpatient stay Substantial Risk for: med/psych decompensation Time Spent With Patient Time: Total time managing care of this patient today _20___ minutes.
[2025-03-11 15:43] VITALS: BP 113/66
[2025-03-11 20:00] VITALS: BP 123/69; PULSE 66; RESP 16; TEMP 36.3; O2SAT 98
[2025-03-11 20:30] VITALS: BP 123/69
[2025-03-12 08:00] VITALS: BP 98/60; PULSE 56; RESP 16; TEMP 36.4; O2SAT 98
[2025-03-12] MEDS: methADONE HCl 20 MG/2 ML ORAL.CONC 105 MG PO (08:13)
[2025-03-12] MEDS: buPROPion HCl XL 150 MG TAB.ER.24H PO (08:16)
[2025-03-12] MEDS: Nicotine 21 MG PATCH.TD24 TRANSDERMA (08:17)
[2025-03-12] MEDS: Nicotine Polacrilex Lozenge 2 MG LOZENGE BUCCAL ×3 (08:18→21:40)
--- NOTE | 2025-03-12 11:57 | HO.PSYCHPN ---
Subjective Subjective Date of Service: 03/12/25 Reason For Visit: crisis Subjective Notes: Conditional Voluntary Interim History: Patient reports feeling better ; pt stated, I'm doing better. I didn't have any nightmares last night and I'm no longer having hallucinations . denies SI/HI/VH/AH. Per social media marketing manager, pt was accepted to program for tomorrow; pt aware. Patient reports he plans on following up with outpatient providers. Medication Compliance: Yes Side effects from medications: No Attending Groups: Yes Mental Status Exam Mental Status Exam Narrative: Pt is alert and oriented; behavior is cooperative and calm; dressed in casual attire; mood is described as good ; eye contact appropriate; Speech is normal rate, volume and not pressured; thought process is organized; Thought content is on tx/discharge; denies SI/HI/VH/AH. Diagnostics Vital Signs (24Hr): Vital Signs - 24 hr 03/11/25 15:43 03/11/25 20:00 03/11/25 20:30 Temperature 97.3 F Pulse Rate 66 Respiratory Rate 16 Blood Pressure 113/66 123/69 123/69 Pulse Oximetry 98 Oxygen Delivery Method Room Air 03/11/25 20:30 03/12/25 08:00 Temperature 97.5 F Pulse Rate 56 Respiratory Rate 16 Blood Pressure 123/69 98/60 Pulse Oximetry 98 Oxygen Delivery Method Room Air BMI result Body Mass Index 29.9 Labs 03/04/25 19:48 03/04/25 19:48 Medications Medications Current Medications Acetaminophen (Acetaminophen 325 Mg Tablet) 650 mg PO Q6H PRN PRN Reason: Headache/Pain, Scale 1-10 Last Admin: 03/11/25 08:58 Dose: 650 mg Al Hydroxide/Mg Hydroxide (Magnesium Hydrox/Alum Hydrox 30 Ml Oral.Susp) 30 ml PO Q6H PRN PRN Reason: Heartburn/Nausea Bupropion HCl (Bupropion Hcl Xl 150 Mg Tab.Er.24h) 150 mg PO DAILY RHEA Last Admin: 03/12/25 08:16 Dose: 150 mg Clonidine HCl (Clonidine Hcl 0.1 Mg Tablet) 0.1 mg PO TID RHEA; Protocol Last Admin: 03/12/25 08:15 Dose: 0.1 mg Dicyclomine HCl (Dicyclomine Hcl 10 Mg Capsule) 10 mg PO TIDAC PRN PRN Reason: stomach cramps Last Admin: 03/12/25 08:15 Dose: 10 mg Diphenhydramine HCl (Diphenhydramine Hcl 25 Mg Capsule) 50 mg PO BEDTIME [facility] Last Admin: 03/11/25 23:05 Dose: 50 mg Docusate Sodium (Docusate Sodium 100 Mg Capsule) 100 mg PO BID [facility] Last Admin: 03/12/25 08:16 Dose: 100 mg Docusate Sodium (Docusate Sodium 100 Mg Capsule) 100 mg PO BEDTIME [facility] Last Admin: 03/11/25 20:30 Dose: 100 mg Gabapentin (Gabapentin 300 Mg Capsule) 600 mg PO TID [facility] Last Admin: 03/12/25 08:16 Dose: 600 mg Hydroxyzine HCl (Hydroxyzine Hcl 25 Mg Tablet) 25 mg PO Q6H PRN PRN Reason: mild anxiety Last Admin: 03/12/25 08:17 Dose: 25 mg Ibuprofen (Ibuprofen 600 Mg Tablet) 600 mg PO Q6H PRN PRN Reason: Pain, Moderate(Pain Scale 4-6) Last Admin: 03/06/25 20:39 Dose: 600 mg Lidocaine (Lidocaine 5 % Ointment 35 Gm) 1 appl TOPICAL Q6H PRN; Protocol PRN Reason: Hemorrhoids Magnesium Hydroxide (Milk Of Magnesia 30 Ml Oral.Susp) 30 ml PO DAILY PRN PRN Reason: Constipation Methadone HCl (Methadone Hcl 20 Mg/2 Ml Oral.Conc) 105 mg PO DAILY [facility] Last Admin: 03/12/25 08:13 Dose: 105 mg Mirtazapine (Mirtazapine 30 Mg Tablet) 30 mg PO BEDTIME [facility] Last Admin: 03/11/25 20:30 Dose: 30 mg Nicotine (Nicotine 21 Mg Patch.Td24) 21 mg TRANSDERMA DAILY [facility] Last Admin: 03/12/25 08:17 Dose: 21 mg Nicotine Polacrilex (Nicotine Polacrilex Lozenge 2 Mg Lozenge) 2 mg BUCCAL Q1H PRN PRN Reason: Nicotine Cravings Last Admin: 03/12/25 08:18 Dose: 2 mg Olanzapine (Olanzapine 5 Mg Tablet) 5 mg PO Q4H PRN PRN Reason: agitation/hallucinations Last Admin: 03/07/25 14:49 Dose: 5 mg Ondansetron HCl (Ondansetron Odt 8 Mg Tab.Rapdis) 8 mg TRANSLINGU Q12H PRN PRN Reason: Nausea and Vomiting Prazosin HCl (Prazosin Hcl 1 Mg Capsule) 2 mg PO BEDTIME [facility]HE[facility]; Protocol Last Admin: 03/11/25 20:30 Dose: 2 mg Senna (Sennosides 8.6 Mg Tablet) 17.2 mg PO BEDTIME [facility] Last Admin: 03/11/25 20:29 Dose: 17.2 mg Trazodone HCl (Trazodone Hcl 50 Mg Tablet) 50 mg PO BEDTIME MRX1 PRN PRN Reason: Insomnia Allergies Allergies Allergy/AdvReac Type Severity Reaction Status Date / Time No Known Allergies (No Known Allergy Verified 03/04/25 18:49 Allergies*) Assessment & Plan Assessment & Plan (1) MDD (major depressive disorder), recurrent severe, without psychosis: Status: Acute Code(s): F33.2 - Major depressive disorder, recurrent severe without psychotic features (2) Opioid use disorder: Status: Acute Code(s): F11.90 - Opioid use, unspecified, uncomplicated (3) Cocaine use disorder: Status: Acute Code(s): F14.10 - Cocaine abuse, uncomplicated Plan Patient is a 44-year-old male with history of MDD, opiate use disorder and cocaine use disorder who presented to ER via ambulance due to suicidal ideation with a plan to walk into traffic or jump off a high surface secondary to increased depression. Plan: CV 15 minute safety checks Continue home medications Start: clonidine 0.1mg PO TID Remeron 15mg PO bedtime Zofran 8mg PO Q12HR PRN nausea Zyprexa 5mg PO Q4HR PRN agitation/hallucinations encourage groups referral to substance abuse program discharge planning 03/06: Active on unit, keeping to self. Patient continues to report feeling depressed; he reports poor sleep last night d/t nightmares. Discussed starting on Prazosin; risks/benefits reviewed; pt agreed to trial. Start: Prazosin 1mg PO bedtime. He continues to report suicidal ideation with no plan. +AH of screaming and +VH of shadows ; encouraged to utilize PRN Zyprexa. Patient is hoping to be accepted into a substance abuse program. continue tx plan. 03/07:Patient continues to report feeling depressed; he reports increased anxiety d/t concerns if he will be accepted into a program for substance use. Continues to report having nightmares last night; per nursing, slept 8 hours. +AH of screaming and +VH of shadows ; Start: Zyprexa 5mg PO BID. denies SI/HI. 03/08 Patient remains depressed but a little better. Denies any SI. AH resolved and patient says it is only mood congruent; does not want to be on antipsychotic. Wants to to get on medications he was on at last admission including Wellbutrin XL 150 mg. Patient asks for help to get bank card to girlfriend to pay rent; director underwriter sales discussed with team who agreed -start Wellbutrin XL 150 mg; does not tolerate higher dose -mirtazapin 30 mg q.h.s. -DC Zyprexa; mood congruent AVH resolved and patient does not want to be on antipsychotic -increase prazosin to 2 mg q.h.s. for nightmares 03/10: Increase Gabapentin to 600 mg TID and continue current management and treatment plan. 03/11: Keeping to self. Patient reports feeling a little better ; denies SI/HI. He reports auditory and visual hallucinations are less than before ; encouraged to utilize Zyprexa PRN if needed. Patient continues focused on obtaining placement at substance abuse program;social media marketing manager aware. Per nursing, slept 8 hours last night. Continue tx plan. 03/12: Patient reports feeling better ; pt stated, I'm doing better. I didn't have any nightmares last night and I'm no longer having hallucinations . denies SI/HI/VH/AH. Per social media marketing manager, pt was accepted to program for tomorrow; pt aware. Patient reports he plans on following up with outpatient providers. Patient educated on: diagnosis and medication risk/benefits Reason for continued inpatient stay Substantial Risk for: stable for discharge Time Spent With Patient Time: Total time managing care of this patient today __20__ minutes.
[2025-03-12 15:44] VITALS: BP 115/67
[2025-03-12 21:31] VITALS: BP 120/76; PULSE 74; RESP 14; O2SAT 98
[2025-03-13 07:40] VITALS: BP 100/57; PULSE 58; RESP 16; TEMP 36.7; O2SAT 95
[2025-03-13] MEDS: methADONE HCl 20 MG/2 ML ORAL.CONC 105 MG PO (08:11)
[2025-03-13] MEDS: buPROPion HCl XL 150 MG TAB.ER.24H PO (08:35)
[2025-03-13] MEDS: Nicotine Polacrilex Lozenge 2 MG LOZENGE BUCCAL (08:37)
[2025-03-13] MEDS: Nicotine 21 MG PATCH.TD24 TRANSDERMA (08:40)
[2025-03-13] MEDS: Naloxone HCl Nasal TAKE HOME 4 MG SPRAY 8 MG NOSTRILALT (08:40)
--- NOTE | 2025-03-13 09:02 | PM.PSYDC ---
DS: Providers Provider Date of Service: 03/13/25 Date of admission: 03/05/25 12:32 Date of discharge: 03/13/25 Primary care physician: Satish Lundberg MD Admitting clinician: Jeimy Mckeon Attending physician on admission: Tru Sethi Attending physician on discharge: Tru Sethi Discharging clinician: Jeimy Mckeon DS: Diagnosis Discharge Diagnosis (1) MDD (major depressive disorder), recurrent severe, without psychosis: Status: Acute (2) Opioid use disorder: Status: Acute (3) Cocaine use disorder: Status: Acute DS: Medications Discharge Medications Home Medications: Home Medications ?Medication ?Instructions ?Recorded ?Confirmed methadone 10 mg/mL oral concentrate 105 mg PO DAILY 03/05/25 03/05/25 Previous Rx's ?Medication ?Instructions ?Recorded bupropion HCl 150 mg 24 hr tablet, 150 mg PO DAILY 30 days #30 tabs 03/12/25 extended release clonidine HCl 0.1 mg tablet 0.1 mg PO TID 30 days #90 tabs 03/12/25 docusate sodium 100 mg capsule 100 mg PO BEDTIME 30 days #30 caps 03/12/25 gabapentin 600 mg tablet 600 mg PO TID 30 days #90 tabs 03/12/25 hydroxyzine HCl 25 mg tablet 25 mg PO BID PRN mild anxiety 30 03/12/25 days #60 tabs mirtazapine 30 mg tablet 30 mg PO BEDTIME 30 days #30 tabs 03/12/25 prazosin 2 mg capsule 2 mg PO BEDTIME 30 days #30 caps 03/12/25 Mental Status Exam Mental Status Exam Narrative: Pt is alert and oriented; behavior is cooperative and calm; dressed in casual attire; mood is described as good ; eye contact appropriate; Speech is normal rate, volume and not pressured; thought process is organized; Thought content is on tx/discharge; denies SI/HI/VH/AH. DS: Summary Hospital Course Hospital Course: Patient is a 44-year-old male with history of MDD, opiate use disorder and cocaine use disorder who presented to ER via ambulance due to suicidal ideation with a plan to walk into traffic or jump off a high surface secondary to increased depression. Per crisis report, patient reports auditory and visual hallucinations of people yelling and seeing shadows. He reports not being able to sleep secondary to his symptoms. Patient reports the symptoms started a few days ago. Patient denies HI. He reports poor appetite. History of 1 prior inpatient psychiatric hospitalization. Patient reports command auditory hallucinations telling him to harm himself and states that this is not typical for him. Patient reports when he is under the influence of drugs he will punch himself and yell. History of detox admissions. He reports cocaine and heroin use. Utox positive for opiates, methadone, fentanyl, cocaine. During admission assessment, patient presents alert and oriented x3. Calm and cooperative. Patient reports feeling depressed ; patient stated, everything seems to be going wrong. I tried to get a job or an apartment and it seems to fail so what's the point . Patient reports suicidal ideation with no plan. He reports auditory hallucinations of screaming and visual hallucinations of shadows . Patient denies HI. He reports that he stopped taking his medications 2 weeks ago . Patient reports he would like to be on the same medication regimen he was taking when last hospitalized. Patient reports goal for admission is to be referred to a substance abuse program. Plan: CV 15 minute safety checks Continue home medications Start: clonidine 0.1mg PO TID Remeron 15mg PO bedtime Zofran 8mg PO Q12HR PRN nausea Zyprexa 5mg PO Q4HR PRN agitation/hallucinations encourage groups referral to substance abuse program discharge planning Active on unit, keeping to self. Patient continues to report feeling depressed; he reports poor sleep last night d/t nightmares. Discussed starting on Prazosin; risks/benefits reviewed; pt agreed to trial. Start: Prazosin 1mg PO bedtime. He continues to report suicidal ideation with no plan. +AH of screaming and +VH of shadows ; encouraged to utilize PRN Zyprexa. Patient is hoping to be accepted into a substance abuse program. continue tx plan. Patient continues to report feeling depressed; he reports increased anxiety d/t concerns if he will be accepted into a program for substance use. Continues to report having nightmares last night; per nursing, slept 8 hours. +AH of screaming and +VH of shadows ; Start: Zyprexa 5mg PO BID. denies SI/HI. Patient remains depressed but a little better. Denies any SI. AH resolved and patient says it is only mood congruent; does not want to be on antipsychotic. Wants to to get on medications he was on at last admission including Wellbutrin XL 150 mg. Patient asks for help to get bank card to girlfriend to pay rent; director underwriter sales discussed with team who agreed -start Wellbutrin XL 150 mg; does not tolerate higher dose -mirtazapin 30 mg q.h.s. -DC Zyprexa; mood congruent AVH resolved and patient does not want to be on antipsychotic -increase prazosin to 2 mg q.h.s. for nightmares Increase Gabapentin to 600 mg TID and continue current management and treatment plan. Keeping to self. Patient reports feeling a little better ; denies SI/HI. He reports auditory and visual hallucinations are less than before ; encouraged to utilize Zyprexa PRN if needed. Patient continues focused on obtaining placement at substance abuse program;health care social worker aware. Per nursing, slept 8 hours last night. Continue tx plan. Patient reports feeling better ; pt stated, I'm doing better. I didn't have any nightmares last night and I'm no longer having hallucinations . denies SI/HI/VH/AH. Per health care social worker, pt was accepted to program for tomorrow; pt aware. Patient reports he plans on following up with outpatient providers. Status at Discharge Cognitive/behavioral status at discharge: Patient has insight and demonstrates good judgment in terms of wanting to pursue treatment. Patient has a safety plan that includes presenting to the closest ER or calling 911 if feeling unsafe. Functional status at discharge: independent ambulation Overall status at discharge: patient is back to baseline Time Spent with Patient Time attestation: Total time managing care of this patient today _20___ minutes. Time spent: Less than 30 minutes Discharge Plan Discharge Anticipated Discharge Date/Time: 03/13/25 12:00 Patient Disposition: Home, Self-Care Discharge Diagnosis: MDD, opioid use d/o, cocaine use d/o Referrals: Satish Lundberg MD [Primary Care Provider, Medical] - 1 Week Discharge Medications: New docusate sodium 100 mg Capsule 100 mg PO BEDTIME 30 Days Qty: 30 0RF mirtazapine 30 mg Tablet 30 mg PO BEDTIME 30 Days Qty: 30 0RF hydroxyzine HCl 25 mg Tablet 25 mg PO BID PRN (Reason: mild anxiety) 30 Days Qty: 60 0RF gabapentin 600 mg tablet 600 mg PO TID 30 Days Qty: 90 0RF bupropion HCl 150 mg Tablet Extended Release 24 Hr 150 mg PO DAILY 30 Days Qty: 30 0RF clonidine HCl 0.1 mg Tablet 0.1 mg PO TID 30 Days Qty: 90 0RF Protocol: Hold for SBP< HOLD for SBP < : 90 prazosin 2 mg capsule 2 mg PO BEDTIME 30 Days Qty: 30 0RF Continued methadone 10 mg/mL Concentrate 105 mg PO DAILY Discontinued gabapentin 400 mg capsule 400 mg PO TID isoniazid 300 mg tablet 300 mg PO DAILY hydroxyzine HCl 25 mg tablet 25 - 50 mg PO TID PRN (Reason: insomnia) Discharge Orders: Discharge Order (Routine); Ordered 03/13/25 Ordered By: Jeimy Mckeon Diet: Regular diet Activity on Discharge: As tolerated Stand Alone Forms: Patient Portal Discharge page, Community Support Print Language: Taiwanese Care Plan Goals: Maintain mood and safe behaviors Take medications as prescribed Continue to pursue sobriety Practice coping skills Continue with outpatient providers and reach out to them as needed Health Concerns: Mood stability and behaviors Sobriety Plan of Treatment: Follow up with your PCP, psychiatric provider and other outpatient providers regarding above concerns Take medications as prescribed Assessment: Patient has insight and demonstrates good judgment in terms of wanting to pursue treatment. Patient has a safety plan that includes presenting to the closest ER or calling 911 if feeling unsafe. Discharge Date/Time: 03/13/25 12:17
== END 2025-03-13 12:17 | disposition home or self-care (01) | DRG 751 ==
LOC: HO.ED 03-05 13:01 → HO.PADLT16 03-05 13:19
PROVIDERS: Physician Assistant Medical; Admitting Provider Registered Nurse; Emergency Provider Emergency Medicine; PCP Internal Medicine; Responsible Provider Registered Nurse; Visit Provider Psychiatry & Neurology Psychiatry
DX: F33.2 Major depressive disorder, recurrent severe without psychotic features (principal); F11.20 Opioid dependence, uncomplicated; F14.10 Cocaine abuse, uncomplicated; F41.9 Anxiety disorder, unspecified; K59.00 Constipation, unspecified; Z86.11 Personal history of tuberculosis; Z86.19 Personal history of other infectious and parasitic diseases; Z79.899 Other long term (current) drug therapy
CPT/HCPCS: 36415; 80053; 80143; 80179; 80307; 81001; 85025; 93005; 99285; S9485

== ENCOUNTER → 2025-03-05 09:00 | Outpatient (BNV) | payer MEDICAID, SELFPAY | PROVIDERS: Emergency Provider Emergency Medicine; PCP Internal Medicine; Visit Provider Internal Medicine Cardiovascular Disease | DX: R00.1 Bradycardia, unspecified (principal) | CPT/HCPCS: 93010 ==

== ENCOUNTER → 2025-03-05 12:32 | Outpatient (BNV) | payer OTHER, SELFPAY | PROVIDERS: Admitting Provider Registered Nurse; Emergency Provider Emergency Medicine; PCP Internal Medicine; Responsible Provider Registered Nurse; Visit Provider Registered Nurse | DX: F33.2 Major depressive disorder, recurrent severe without psychotic features (principal); F14.10 Cocaine abuse, uncomplicated; F11.90 Opioid use, unspecified, uncomplicated | CPT/HCPCS: 99231; 99232; 99233 ==

== ENCOUNTER → 2025-03-05 12:32 | Outpatient (BNV) | payer MEDICAID, SELFPAY | PROVIDERS: Admitting Provider Registered Nurse; Emergency Provider Emergency Medicine; PCP Internal Medicine; Responsible Provider Registered Nurse; Visit Provider Nurse Practitioner Family | DX: K59.01 Slow transit constipation (principal) | CPT/HCPCS: 99221 ==